=== PATIENT | female | born 1970 | race Two or more races ===

== ENCOUNTER 2025-04-10 17:42 | Emergency (ER) | payer OTHER, SELFPAY ==
[2025-04-10 17:47] VITALS: BP 118/97; PULSE 97; RESP 16; TEMP 36.6; O2SAT 96
--- OUTSIDE RECORDS SUMMARY | 2025-04-10 19:24 | XMS_ITS | Clinical Summary ---
Author Organization [facility] Address [address] [place] [address] Care Team Providers Care Associate Marketing Manager Name Role Phone Lasha Patel PA-C Primary Care Provider [phone] Source Comments [facility],non-owned Affiliates and Associated Physician Practices is amultiple site organization consisting of ambulatory clinics and hospital sitesin [place], [place], [place] and [place]. This disclosure is being madepursuant to the Care Everywhere program and may not contain all information available regarding this patient. Last updated 18.[facility] Allergies Active Allergy Reactions Criticality Noted Date Comments Penicillins Urticaria High 03/29/2020 Medications * Be aware that medications may not be up to date on this document. Alwaysverify current medications with the patient. atorvastatin (Lipitor) 10 MG tablet Take 1 (one) tablet by mouth once daily 06/25/2024 Active losartan (Cozaar) 50 MG tablet Take 1 (one) tablet by mouth once daily 03/03/2024 Active gabapentin (Neurontin) 300 MG capsule Take 1 (one) capsule by mouth as needed 08/21/2024 Active PARoxetine (Paxil) 30 MG tablet Take 0.5 (one-half) tablet by mouth once daily 08/15/2024 Active busPIRone (Buspar) 5 MG tablet Take 1 (one) tablet by mouth 2 times daily Active hydrOXYzine HCl (Atarax) 25 MG tablet Take 1 (one) tablet by mouth 4 times daily as needed for Itching Active mirtazapine (Remeron) 30 MG tablet Take 1 (one) tablet by mouth at bedtime 30 tablet 09/24/2024 Active metoprolol tartrate IR (Lopressor) 25 MG tablet Take 1 (one) tablet by mouth 2 times daily 60 tablet 01/11/2025 Active LORazepam (Ativan) 1 MG tablet Take 1 (one) tablet by mouth every 12 hours as needed for Anxiety 6 tablet 01/11/2025 Active oxymetazoline (Afrin) 0.05 % nasal spray Perry 1 (one) spray into each nostril 2 times daily Please use for not longer than a week 37 mL 01/14/2025 Active fluticasone propionate (Flonase) 50 MCG/ACT nasal spray Perry 2 (two) sprays into each nostril once daily 1 Each 01/14/2025 Active loratadine (Claritin) 10 MG tablet Take 1 (one) tablet by mouth once daily 30 tablet 01/14/2025 Active predniSONE (Deltasone) 50 MG tablet Take 1 (one) tablet by mouth once daily 5 tablet 01/14/2025 Active Active Problems Problem Noted Date Diagnosed Date Sinus tachycardia 09/23/2024 SVT (supraventricular tachycardia) 09/23/2024 Tinnitus of both ears 09/23/2024 JANELL (generalized anxiety disorder) 06/23/2024 Alcohol use disorder, mild, in early remission 1 Insomnia 06/23/2024 MDD (major depressive disorder) 06/23/2024 Mixed hyperlipidemia 06/23/2024 Smoker 06/23/2024 Cluster headaches 06/23/2024 Encounters Date Type Department Care Team Description 01/14/2025 11:34 AM CDT - 01/14/2025 3:54 PM CDT Emergency ER at [address] [address] Mario Whaley MD Pulsatile tinnitus of right ear (Primary Dx); Acute intractable headache, unspecified headache type Discharge Disposition: Correction or Supportive Care 01/14/2025 Travel 01/11/2025 11:55 AM CDT - 01/11/2025 6:45 PM CDT Emergency ER at [address] [address] Sakina Ray MD Rapid heart rate; Anxiety states Discharge Disposition: Home or Self Care 01/11/2025 Travel from Last 3 Months Immunizations Immunization Administration Dates Next Due COVID PFIZER 12+YR 30MCG/0.3mL 06/05/2024,2022 COVID PFIZER BIVALENT 12Y+ 30mcg/0.3ML Covid Pfizer primary Monoval ent 12+ yr 0.3ml 01/04/2022 Covid Pfizer primary monoval ent 12+ yr 0.3mL Purple cap 08/05/2021,11/24/2020,10/27/2020 Social History Tobacco Use Types Packs/Day Years Used Date Smoking Tobacco: Former Cigarettes Smokeless Tobacco: Never Tobacco Cessation:Counseling Given: Not Answered Comments:Smoke half pack a day Alcohol Use Standard Drinks/Week Comments Not Currently 0 (1 standard drink = 0.6 oz pur e alcohol) 56 days sober Sex and Gender Information Value Date Recorded Sex Assigned at Not on file 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 Gender Identity Not on file Sexual Orientation Not on file Last Filed Vital Signs Vital Sign Reading Time Taken Comments Blood Pressure 122/93 01/14/2025 3:30 PM CDT Pulse 63 01/14/2025 2:30 PM CDT Temperature 36.7 C (98.1 F) 01/14/2025 11:36 AM CDT Respiratory Rate 14 01/14/2025 2:30 PM CDT Oxygen Saturation 98% 01/14/2025 3:30 PM CDT Inhaled Oxygen Concentration - - Weight 93 kg (205 lb) 01/14/2025 11:36 AM CDT Height 188 cm (6' 2) 01/14/2025 11:36 AM CDT Body Mass Index 26.32 01/14/2025 11:36 AM CDT Plan of Treatment Upcoming Encounters Date Type Department Care Team (Late st Contact Info) Description 04/17/2025 11:30 AM CDT Office Visit [facility] - ENT [address] [place] [address] Pj Jeffers MD [address] [place] [address] Health Maintenance Due Date Last Done Comments COLOGUARD (AGES 45-75) - COLON CA SCREENING 1970 COLON MONITORING 1970 COLONOSCOPY - COLON CA SCREENING 1970 CT COLONOGRAPHY - COLON CA SCREENING 1970 Colorectal Cancer Screening 1970 FIT - COLON CA SCREENING 1970 FLEX SIG - COLON CA SCREENING 1970 HIV SCREENING 1985 HEPATITIS C SCREENING 11/05/1988 DTAP/TDAP/TD VACCINES (1 - Tdap) 1989 HEPATITIS B VACCINE (1 of 3 - 19+ 3-dose series) 1989 PNEUMOCOCCAL VACCINE 50+ (1 of 1 - PCV) 2020 ZOSTER VACCINE (1 of 2) 2020 DEPRESSION SCREENING 09/21/2024 INFLUENZA VACCINE (#1) 2025 SCREENING FOR DIABETES 01/15/2028 , 01/11/2025, 01/10/2025, Additional history exists COVID-19 VACCINE Completed 06/05/2024, , 08/06/2022, Additional history exists HIB VACCINE Aged Out No longer eligi ble based on patient's age to complete this topic HPV VACCINE Aged Out No longer eligi ble based on patient's age to complete this topic MENINGOCOCCAL (Group B) VACCINE SHARED DECISION-MAKING Aged Out No longer eligible based on patient's age to complete this topic MENINGOCOCCAL GROUPS A/C/Y/W VACCINE Aged Out No longer eligible based on patient's age to complete this topic Procedures Procedure Name Priority Date/Time Associated Diagnosis Comments COMPREHENSIVE METABOLIC PANEL STAT 01/14/2025 12:14 PM CDT CBC W AUTO DIFFERENTIAL STAT 01/14/2025 12:[address] HEAD WO CONTRAST STAT 01/14/2025 1 2:07 PM CDT Acute intractable headache, unspecified headache type CARDIAC EKG ORDER 01/12/2025 2:3 6 PM CDT TROPONIN-I HIGH SENSITIVE REFLEX 1HOUR Timed 01/11/2025 1:45 PM CDT TROPONIN-I HIGH SENSITIVE BASELINE + 1HR STAT 01/11/2025 12:13 PM CDT B-TYPE NATRIURETIC PEPTIDE STAT 01/11/2025 12:07 PM CDT ALCOHOL ETHYL BLOOD STAT 01/11/2025 1 2:07 PM CDT MAGNESIUM BLOOD STAT 01/11/2025 12:07 PM CDT COMPREHENSIVE METABOLIC PANEL STAT 01/11/2025 12:07 PM CDT CBC W AUTO DIFFERENTIAL STAT 01/11/2025 12:07 PM CDT EKG 12-LEAD STAT 01/11/2025 11:58 AM CDT Rapid heart beat from Last 3 Months Results * CBC W AUTO DIFFERENTIAL (01/14/2025 12:14 PM CDT) Only the most recent of2 resultswithin the time period is included. Pathologist [facility] WBC 8.4 4.0 - 10.7 x10E9/L 01/14/2025 12:21 PM CDT [facility] RBC Count 4.85 4.30 - 5.80 x10E12/L 01/14/2025 12:21 PM CDT [facility] Hemoglobin 14.9 13.3 - 17.5 g/dL 01/14/2025 12:21 PM CDT [facility] Hematocrit 43.2 38.7 - 51.1 % 01/14/2025 12:21 PM CDT [facility] MCV 89.1 80.0 - 98.0 fL 01/14/2025 12:21 PM CDT [facility] MCH 30.7 26.7 - 33.6 pg 01/14/2025 12:21 PM CDT [facility] MCHC 34.5 31.7 - 36.3 g/dL 01/14/2025 12:21 PM CDT [facility] RDW-CV 12.5 11.3 - 14.8 % 01/14/2025 12:21 PM CDT [facility] Platelet Count 217 150 - 420 x10E9/L 01/14/2025 12:21 PM CDT [facility] MPV 8.9 7.8 - 11.4 fL 01/14/2025 12:21 PM CDT [facility] Neutrophil % 58.8 41.0 - 74.0 % 01/14/2025 12:21 PM CDT [facility] Lymphocyte % 31.6 17.0 - 47.0 % 01/14/2025 12:21 PM CDT [facility] Monocyte % 6.0 3.0 - 11.0 % 01/14/2025 12:21 PM CDT [facility] Eosinophil % 1.9 0.0 - 7.0 % 01/14/2025 12:21 PM CDT [facility] Basophil % 0.9 0.0 - 1.6 % 01/14/2025 12:21 PM CDT [facility] Immature Granulocytes % 0.8 0.0 - 1.0 % 01/14/2025 12:21 PM CDT [facility] Neutrophil Absolute 4.95 1.60 - 7.50 x10E9/L 01/14/2025 12:21 PM CDT [facility] Lymphocyte Absolute 2.67 1.00 - 4.40 x10E9/L 01/14/2025 12:21 PM CDT [facility] Monocyte Absolute 0.51 0.15 - 1.00 x10E9/L 01/14/2025 12:21 PM CDT [facility] Eosinophil Absolute 0.16 0.00 - 0.60 x10E9/L 01/14/2025 12:21 PM CDT [facility] Basophil Absolute 0.08 0.00 - 0.13 x10E9/L 01/14/2025 12:21 PM CDT [facility] Blood BLOOD SPECIMEN / Unknown Venipuncture / Unknown 01/14/2025 12:14 PM CDT 01/14/2025 12:17 PM CDT Mario Whaley MD LAB - HEMATOLOGY ORDERABLES Fin al Result [facility] [address] [place] [address] * (ABNORMAL) COMPREHENSIVE METABOLIC PANEL (01/14/2025 12:14 PM CDT) Only the most recent of2 resultswithin the time period is included. [facility] Glucose 88 70 - 99 mg/dL 01/14/2025 12:34 PM CDT [facility] Sodium 141 136 - 145 mmol/L 01/14/2025 12:34 PM CDT [facility] Potassium 4.4 3.5 - 5.1 mmol/L 01/14/2025 12:34 PM CDT [facility] Chloride 109(H) 98 - 107 mmol/L 01/14/2025 12:34 PM CDT [facility] CO2 26 22 - 29 mmol/L 01/14/2025 12:34 PM CDT [facility] Calcium 10.0 8.4 - 10.4 mg/dL 01/14/2025 12:34 PM CDT [facility] Anion Gap 6 6 - 16 mmol/L 01/14/2025 12:34 PM CDT [facility] BUN 13 7 - 26 mg/dL 01/14/2025 12:34 PM CDT [facility] Creatinine 1.00 0.72 - 1.25 mg/dL 01/14/2025 12:34 PM CDT [facility] Alkaline Phosphatase 43 40 - 150 U/L 01/14/2025 12:34 PM CDT [facility] ALT 31 6 - 57 U/L 01/14/2025 12:34 PM CDT [facility] AST 19 10 - 48 U/L 01/14/2025 12:34 PM CDT [facility] Protein Total 7.2 6.4 - 8.3 gm/dL 01/14/2025 12:34 PM CDT [facility] Albumin 4.3 3.4 - 5.0 gm/dL 01/14/2025 12:34 PM CDT [facility] Bilirubin Total 0.6 0.2 - 1.2 mg/dL 01/14/2025 12:34 PM CDT [facility] eGFR by CKD-EPI 89(L) >=90 mL/min/1.7 3 m2 01/14/2025 12:34 PM CDT [facility] Blood BLOOD SPECIMEN / Unknown Venipuncture / Unknown 01/14/2025 12:14 PM CDT 01/14/2025 12:17 PM CDT Mario Whaley MD LAB - CHEMISTRY ORDERABLES Mira mcbride Result [facility] [address] [place] [address] * CT Head Wo Contrast (01/14/2025 12:07 PM CDT) Anatomical Region Laterality Modality Head Computed Tomogra phy 01/14/2025 12:1 0 PM CDT Impressions 01/14/2025 12:11 PM CDT IMPRESSION: No intracranial hemorrhage > Interpreting Provider: Ej Villanueva MD on 01/14/2025 12:11 PM Narrative 01/14/2025 12:11 PM CDT PROCEDURE: CT HEAD WO CONTRAST DATE/TIME OF EXAM: 01/14/2025 12:07 PM CLINICAL INFORMATION: None relevant/not provided if blank. Indication: R51.9: Headache, unspecified Additional History: COMPARISON: None. TECHNIQUE: Noncontrast CT brain was performed utilizing standard protocol. CT dose reduction technique was used, including Automated Exposure Control. VIZAI was utilized for intracranial hemorrhage. FINDINGS: The ventricles, gyri, and sulci are appropriate. There is no midline shift, mass, mass effect or acute intracranial hemorrhage. No definite acute cortical infarct is present. The calvarium is intact. There is ethmoid sinus thickening. Right maxillary sinus thickening is present. Procedure Note Ej Villanueva MD - 01/14/2025 PROCEDURE: CT HEAD WO CONTRAST DATE/TIME OF EXAM: 01/14/2025 12:07 PM CLINICAL INFORMATION: None relevant/not provided if blank. Indication: R51.9: Headache, unspecified Additional History: COMPARISON: None. TECHNIQUE: Noncontrast CT brain was performed utilizing standard protocol. CT dose reduction technique was used, including Automated ExposureControl. VIZAI was utilized for intracranial hemorrhage. FINDINGS: The ventricles, gyri, and sulci are appropriate. There is no midlineshift, mass, mass effect or acute intracranial hemorrhage. No definite acute cortical infarct is present. The calvarium is intact. There is ethmoid sinus thickening. Right maxillary sinus thickening is present. IMPRESSION: No intracranial hemorrhage > Interpreting Provider: Ej Villanueva MD on 01/14/2025 12:11 PM Result [facility] Mario Whaley MD CT ORDERABLES Final Result * CARDIAC EKG ORDER (01/12/2025 2:36 PM CDT) Narrative 01/12/2025 2:36 PM CDT Ordered by an unspecified provider. Scanned Document CARDIAC SERVICES ORDERABLES Fin al Result * TROPONIN-I HIGH SENSITIVE REFLEX 1HOUR (01/11/2025 1:45 PM CDT) Troponin I High Sensitive <3 <=35 ng/L 01/11/2025 2:10 PM CDT [facility] Delta Troponin I HS 01/11/2025 2:10 PM CDT [facility] Comment:Delta value intentio elzbieta not calculated. Baseline to 1 hour specimen collection interval exceeded. Blood BLOOD SPECIMEN / Unknown Venipuncture / Unknown 01/11/2025 1:45 PM CDT 01/11/2025 1:47 PM CDT Result [facility] Sakina Ray MD LAB - CHEMISTRY ORDERABLES Final Result Performing Organization Address [facility] Co de Phone Number [facility] [id number] [place] [address] * TROPONIN-I HIGH SENSITIVE BASELINE + 1HR (01/11/2025 12:13 PM CDT) Troponin I High Sensitive <3 <=35 ng/L 01/11/2025 12:44 PM CDT [facility] Blood BLOOD SPECIMEN / Unknown Venipuncture / Unknown 01/11/2025 12:13 PM CDT 01/11/2025 12:16 PM CDT Result [facility] Sakina Ray MD LAB - CHEMISTRY ORDERABLES Final Result Performing Organization Address [facility] Co de Phone Number [facility] [address] [place] [address] * B-TYPE NATRIURETIC PEPTIDE (01/11/2025 12:07 PM CDT) Pathologist [facility] BNP <10 <=100 pg/mL 01/11/2025 12:51 PM CDT [facility] Blood BLOOD SPECIMEN / Unknown Venipuncture / Unknown 01/11/2025 12:07 PM CDT 01/11/2025 12:22 PM CDT Sakina Ray MD LAB - CHEMISTRY ORDERABLES Final Result Performing Organization Address [facility] Co de Phone Number [facility] [address] [place] [address] [id number] * MAGNESIUM BLOOD (01/11/2025 12:07 PM CDT) [facility] Magnesium 2.0 1.6 - 2.6 mg/dL 01/11/2025 12:45 PM CDT [facility] Blood BLOOD SPECIMEN / Unknown Venipuncture / Unknown 01/11/2025 12:07 PM CDT 01/11/2025 12:22 PM CDT Sakina Ray MD LAB - CHEMISTRY ORDERABLES Final Result Performing Organization Address [facility] de Phone Number [facility] [address] [place] [address] * ALCOHOL ETHYL BLOOD (01/11/2025 12:07 PM CDT) [facility] Ethanol <10.0 <10 mg/dL 01/11/2025 12:45 PM CDT [facility] Ethanol Calculated <0.010 <=0.100 gm/dL 01/11/2025 12:45 PM CDT [facility] Blood BLOOD SPECIMEN / Unknown Venipuncture / Unknown 01/11/2025 12:07 PM CDT 01/11/2025 12:22 PM CDT Narrative [facility] - 01/11/2025 12:45 PM CDT Ethanol Interp <10: None Detected Depression of CSN: >100 mg/dL Potentially Critical: >250 mg/dL Potentially Fatal >400 mg/dL Ethanol in the patient's blood will contribute to the osmolar gap. Ethanol's contribution to the osmolar gap can be estimated by dividing the concentration of ethanol in mg/dL by 4.6. This test is for clinical use only and does not equal a RICCARDO for legal purposes. Sakina Ray MD LAB - CHEMISTRY ORDERABLES Final Result Performing Organization Address [facility] Co de Phone Number [facility] [address] [place] [address] * EKG 12-LEAD (01/11/2025 11:58 AM CDT) Ventricular Rate 133 BPM [facility] Atrial Rate 133 BPM [facility] P-R Interval 132 ms [facility] QRS Duration ms 82 ms [facility] Q-T Interval ms 298 ms [facility] QTC Calculation (Bezet) 443 ms [facility] Calculated P [place] 43 degrees [facility] Calculated R [place] 11 degrees [facility] Calculated T [place] 61 degrees [facility] Interpretation EKG Sinus tachycardia Otherwise normal ECG No previous ECGs available Confirmed by LENO REYES MD ([id number]) on 01/11/2025 1:39:22 PM [facility] 01/11/2025 11:5 8 AM CDT 01/11/2025 1:39 PM CDT Sakina Ray MD ECG ORDERABLES Edited Result - Final Performing Organization Address [facility] Co de Phone Number [facility] from Last 3 Months Insurance [facility] Advance Directives * Full Code (Latest Code Status on File) Date Activated Date Inactivated Comments 09/23/2024 6:37 PM 09/24/2024 7:13 PM Care Teams Associate Marketing Manager Relationship Specialty Start Date End Date Lasha Patel PA-C [address] [id number] PCP - General Physician Shopping Inspector Medical 08/22/24
--- OUTSIDE RECORDS SUMMARY | 2025-04-10 19:24 | XMS_ITS | Referral Summary ---
Author Organization [facility] Address [facility] [place] [address] Care Team Providers Care Clay Puddler Name Role Phone Ignacio Feldman MD Primary Care Provider + Encounters Date Type Department Care Team Description 04/10/2025 4:57 PM CDT - 04/10/2025 6:54 PM CDT Emergency [facility] Emergency Department [address] [place] [id number] Discharge Disposition: Left without being seen 04/08/2025 1:41 PM CDT - 04/08/2025 5:20 PM CDT Emergency [facility] Emergency Department [address] [place] [address] Saba Tapia MD Acute intractable headache, unspecified headache type (Primary Dx) Discharge Disposition: Discharge to home or self care 04/06/2025 5:35 AM CDT - 04/06/2025 7:56 AM CDT Emergency [facility] Emergency Department [address] [place] [address] Franklyn Mclain MD Thomas, Jenna Marie, MD Tinnitus of both ears (Primary Dx); Other migraine with status migrainosus, not intractable Discharge Disposition: Discharge to home or self care 04/03/2025 Telephone [facility] Otolaryngology [address] [place] [id number] Elle Meehan MS 03/23/2025 11:55 PM CDT - 03/24/2025 3:08 AM CDT Emergency [facility] Emergency Department [address] [place] [address] Nina Bejarano MD Anxiety (Primary Dx); Tinnitus of both ears Discharge Disposition: Discharge to home or self care 03/22/2025 Orders Only [facility] [address] [facility] [address] [place] [id number] Lasha Patel PA Primary osteoarthritis involving multiple joints (Primary Dx); Chronic pain syndrome 03/15/2025 9:13 AM CDT - 03/15/2025 10:56 AM CDT Emergency [facility] Emergency Department [address] [place] [address] Bj Leger DO Tinnitus, unspecified laterality (Primary Dx); Anxiety Discharge Disposition: Discharge to home or self care 03/12/2025 3:40 PM CDT - 03/12/2025 7:29 PM CDT Emergency [facility] Emergency Department [address] [place] [address] Anxiety (Primary Dx) Discharge Disposition: Discharge to home or self care 03/12/2025 9:30 AM CDT - 03/12/2025 12:34 PM CDT Emergency [facility] Emergency Department [address] [place] [address] Ken Monreal MD Tinnitus of both ears (Primary Dx) Discharge Disposition: Discharge to home or self care 03/06/2025 12:00 PM CDT - 03/06/2025 1:05 PM CDT Surgery [facility] Operating Room [address] [place] [address] Santos Hart MD SEPTOPLASTY AND BILATERAL INFERIOR TURBINATE REDUCTION [[id number] (CPT )] 03/06/2025 11:52 AM CDT Anesthesia Event [facility] Operating Room [address] [place] [address] Ivelisse Benton DO Riordan, Isabella Rossi, MD 03/06/2025 9:56 AM CDT - 03/06/2025 2:50 PM CDT Hospital Encounter [facility] Operating Room [address] [place] [address] Santos Hart MD Discharge Disposition: Discharge to home or self care from Last 3 Months Allergies Active Allergy Reactions Criticality Noted Date Comments Penicillins Angioedema High 11/12/2024 Medications atorvastatin (LIPITOR) 10 mg tablet Take 1 tablet (10 mg total) by mouth daily 4 Active gabapentin (NEURONTIN) 300 mg capsule Take 1 capsule (300 mg total) by mouth as needed 4 Active losartan (COZAAR) 50 mg tablet Take 1 tablet (50 mg total) by mouth daily 4 Active metoprolol tartrate (LOPRESSOR) 25 mg immediate release tablet Take 1 tablet (25 mg total) by mouth 2 (two) times a day 5 Active mirtazapine (REMERON) 30 mg tablet Take 1.5 tablets (45 mg total) by mouth nightly 5 Active PARoxetine (PAXIL) 30 mg tablet Take 0.5 tablets (15 mg total) by mouth daily 4 Active hydrOXYzine (ATARAX) 25 mg tablet Take 1 tablet (25 mg total) by mouth every 6 (six) hours 12 tablet 5 Active butalbital-acet aminophen-caffe ine (ESGIC) 50-325-40 mg per tablet Take 1 tablet by mouth every 4 (four) hours as needed for headaches 15 tablet 5 Active hydrOXYzine (ATARAX) 25 mg tablet Take 1 tablet (25 mg total) by mouth 4 (four) times a day as needed 03/24/20 25 Discontinu ed(Therapy completed) Social History Tobacco Use Types Packs/Day Years Used Date Smoking Tobacco: Former Smokeless Tobacco: Never Tobacco Cessation:Counseling Given: Not Answered AUDIT-C Answer Date Recorded Q1: How often do you have a drink containing alcohol? Never 03/06/2025 Q2: How many drinks containi ng alcohol do you have on a typical day when you are drinking? Patient does not drink 5 Q3: How often do you have si x or more drinks on one occasion? Never 03/06/2025 Personal Safety Answer Date Recorded Have you ever been in or are you currently in a harmful physical or emotional relationship or is someone making you feel afraid or unsafe? 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 Gender Identity Not on file Sexual Orientation Not on file Last Filed Vital Signs Vital Sign Reading Time Taken Comments Blood Pressure 137/94 04/08/2025 5:00 PM CDT Pulse 85 04/08/2025 5:00 PM CDT Temperature 36.1 C (96.9 F) 04/08/2025 1:47 PM CDT Respiratory Rate 20 04/08/2025 5:00 PM CDT Oxygen Saturation 93% 04/08/2025 5:00 PM CDT Inhaled Oxygen Concentration - - Weight 104.3 kg (230 lb) 04/08/2025 1:47 PM CDT Height 188 cm (6' 2) 03/23/2025 11:32 PM CDT Body Mass Index 29.53 03/23/2025 11:32 PM CDT Plan of Treatment Not on file Procedures Procedure Name Priority Date/Time Associated Diagnosis Comments EGFR STAT 04/08/2025 3:16 PM CDT DIFFERENTIAL AUTO STAT 04/08/2025 3:1 6 PM CDT COMPREHENSIVE METABOLIC PANEL STAT 04/08/2025 3:16 PM CDT CBC WITH AUTO DIFFERENTIAL STAT 04/08/2025 3:16 PM CDT TROPONIN T HIGH-SENSITIVITY 2-HOUR Timed 03/12/2025 6:32 PM CDT EGFR STAT 03/12/2025 4:30 PM CDT DIFFERENTIAL AUTO STAT 03/12/2025 4:3 0 PM CDT TROPONIN T HIGH-SENSITIVITY SERIES (BASELINE, 2HR, 4HR, 6HR) STAT 03/12/2025 4:30 PM CDT COMPREHENSIVE METABOLIC PANEL STAT 03/12/2025 4:30 PM CDT CBC WITH AUTO DIFFERENTIAL STAT 03/12/2025 4:30 PM CDT XR CHEST PA LATERAL 2 VIEWS ED 03/12/2025 4:11 PM CDT ECG 12-LEAD STAT 03/12/2025 3:41 PM CDT OH AN PROCEDURE PLACEHOLDER Routine 03/06/2025 12:16 PM CDT OH AN ELECTIVE ENDOTRACHEAL AIRWAY Routine 03/06/2025 12:16 PM CDT OH SEPTOPLASTY/SUBMUCOU S RESECJ W/WO CARTILAGE GRF 03/06/2025 11:59 AM CDT Deviated nasal septum Other specified disorders of nose and nasal sinuses Nasal congestion Hypertrophy of nasal turbinates Case Notes NO SPECIAL NEEDS / NO REP NEEDED FOR THIS CASE from Last 3 Months Results * eGFR (04/08/2025 3:16 PM CDT) eGFR >90 >=60 mL/min/1. 73 m2 Comment: Interpretive Data Reference Interval Normal >/= 90 mL/min/1.73m2 Mildly decreased* 60 - 89 mL/min/1.73m2 Mildly to moderately decreased 45 - 59 mL/min/1.73m2 Moderately to severely decreased 30 - 44 mL/min/1.73m2 Severely decreased 15 - 29 mL/min/1.73m2 Kidney Failure < 15 mL/min/1.73m2 *Relative to young adult level Estimated glomerular filtration rate is determined by the 2020 CKD-EPI equation recommended by the National Kidney Foundation (A Unifying Approach to GFR Estimation: Recommendations of the NKF-ASK Task Force on Reassessing the Inclusion of Race in Diagnosing Kidney Disease, JASN 2020). The CKD-EPI equation should not be used for patients with unstable renal function and has not been validated in children and those over 70. Current interpretive data was last reviewed 2021. Blood 04/08/2025 3:16 PM CDT 04/08/2025 3:22 PM CDT us Saba Tapia MD LAB BLOOD ORDERABLES Fin al Result [facility] [address] [facility] Department [place] [address] * Differential, auto (04/08/2025 3:16 PM CDT) Neutrophil abs 5.06 1.50 - 6.50 K/cumm Imm gran abs 0.08 0.00 - 0.10 K/cumm [facility] Lymphocyte abs 2.68 0.80 - 3.30 K/cumm [facility] Monocyte abs 0.61 0.20 - 0.80 K/cumm [facility] Eosinophil abs 0.14 0.00 - 0.50 K/cumm [facility] Basophil abs 0.07 0.00 - 0.10 K/cumm [facility] Neutrophil pct 58.6 % [facility] Comment: Interpretive Data Percent cell count reference ranges are not reported, since discordance with absolute values may lead to misinterpretation of CBC data. Current Interpretive Data was last revised on 2017. Imm gran pct 0.9 % [facility] Comment: Interpretive Data Percent cell count reference ranges are not reported, since discordance with absolute values may lead to misinterpretation of CBC data. Current Interpretive Data was last revised on 2017. Lymphocyte pct 31.0 % [facility] Comment: Interpretive Data Percent cell count reference ranges are not reported, since discordance with absolute values may lead to misinterpretation of CBC data. Current Interpretive Data was last revised on 2017. Monocyte pct 7.1 % [facility] Comment: Interpretive Data Percent cell count reference ranges are not reported, since discordance with absolute values may lead to misinterpretation of CBC data. Current Interpretive Data was last revised on 2017. Eosinophil pct 1.6 % [facility] Comment: Interpretive Data Percent cell count reference ranges are not reported, since discordance with absolute values may lead to misinterpretation of CBC data. Current Interpretive Data was last revised on 2017. Basophil pct 0.8 % [facility] Comment: Interpretive Data Percent cell count reference ranges are not reported, since discordance with absolute values may lead to misinterpretation of CBC data. Current Interpretive Data was last revised on 2017. Blood 04/08/2025 3:16 PM CDT 04/08/2025 3:22 PM CDT Saba Tapia MD LAB BLOOD ORDERABLES Fin al Result Performing Organization Address City/[facility]/ZIP Co de Phone Number [facility] [address] [facility] [place] [address] * (ABNORMAL) CBC with auto differential (04/08/2025 3:16 PM CDT) Pathologist [facility] WBC 8.64 3.80 - 9.90 K/cumm Hgb 15.6 13.0 - 17.5 g/dL [facility] Hct 44.3 38.9 - 50.3 % [facility] Plt 221 150 - 400 K/cumm [facility] MPV 9.0(L) 9.1 - 12.3 fL [facility] RBC 4.89 4.30 - 5.80 M/cumm [facility] MCV 90.6 81.3 - 96.4 fL [facility] MCH 31.9 27.1 - 33.3 pg [facility] MCHC 35.2 32.3 - 35.7 g/dL [facility] RDW CV 13.2 11.1 - 14.9 % [facility] RDW SD 42.9 35.7 - 48.1 fL [facility] Blood 04/08/2025 3:16 PM CDT 04/08/2025 3:22 PM CDT Saba Tapia MD LAB BLOOD ORDERABLES Fin al Result Performing Organization Address City/[facility] Co de Phone Number [facility] [address] [facility] [place] [employer] [address] * Comprehensive metabolic panel (04/08/2025 3:16 PM CDT) [facility] Sodium 137 135 - 145 mmol/L Potassium, pl 4.1 3.3 - 4.9 mmol/L [facility] Chloride 101 97 - 110 mmol/L [facility] CO2 23 22 - 32 mmol/L [facility] Anion gap 13 2 - 15 mmol/L [facility] BUN 12 6 - 25 mg/dL [facility] Creatinine 0.90 0.80 - 1.30 mg/dL [facility] Glucose 88 70 - 199 mg/dL [facility] Comment: Interpretive Data Fasting glucose >/= 126 mg/dl is diagnostic for diabetes. Fasting is defined as no caloric intake for at least 8 hours. Fasting glucose between 100 mg/dl to 125 mg/dl is diagnostic of prediabetes. In a patient with classic symptoms of hyperglycemia or hyperglycemic crisis, a random glucose >/= 200 mg/dl is diagnostic for diabetes. In the absence of unequivocal hyperglycemia, results should be confirmed by repeat testing. The classification and Diagnosis of Diabetes Diabetes Care 2021; 46: S19-S40. Current interpretive data was last revised 2022. Calcium 10.1 8.5 - 10.3 mg/dL [facility] Bilirubin, total 0.3 0.1 - 1.2 mg/dL [facility] Protein, pl 7.1 6.5 - 8.5 g/dL [facility] Albumin 4.3 3.5 - 5.0 g/dL [facility] PW Alk phos 52 40 - 130 Units/L [facility] PW ALT 28 7 - 55 Units/L [facility] PW AST 20 10 - 50 Units/L [facility] Comment:Hemolyzed result may be falsely elevated. Blood 04/08/2025 3:16 PM CDT 04/08/2025 3:22 PM CDT us Saba Tapia MD LAB BLOOD ORDERABLES Fin al Result [facility] [address] Department [place] [address] * Troponin T high-sensitivity 2-hour (03/12/2025 6:32 PM CDT) [facility] Trop T hs <6 <=22 ng/L Comment: Interpretive Data For further hscTnT resources including the diagnostic algorithm and an aid in interpretation, copy and paste this link: [email or web address].[email or web address]/show/hsTrop Current Interpretive Data last revised 2020. Trop T hs delta 0 ng/L [facility] Trop T hs interp Insignificant [facility] H Blood 03/12/2025 6:32 PM CDT 03/12/2025 6:34 PM CDT Son Rondon [employer]ING [employer]MER MACHINE LAB BLOOD ORDERABLES Fin al Result Performing Organization Address [facility] de Phone Number [address] [place] [address] * Troponin T high-sensitivity series (baseline, 2hr, 4hr, 6hr) (03/12/2025 4:30 PM CDT) [facility] Trop T hs <6 <=22 ng/L Comment: Interpretive Data For further hscTnT resources including the diagnostic algorithm and an aid in interpretation, copy and paste this link: https://nrl.[email or web address]/show/hsTrop Current Interpretive Data last revised 2020. Blood 03/12/2025 4:30 PM CDT 03/12/2025 4:33 PM CDT Son Rondon [employer]MER [employer]ACHINE LAB BLOOD ORDERABLES Fin al Result Performing Organization Address [facility] Co de Phone Number [address] Department of [employer] [place], [place] [id number] * eGFR (03/12/2025 4:30 PM CDT) [facility] eGFR >90 >=60 mL/min/1. 73 m2 Comment: Interpretive Data Reference Interval Normal >/= 90 mL/min/1.73m2 Mildly decreased* 60 - 89 mL/min/1.73m2 Mildly to moderately decreased 45 - 59 mL/min/1.73m2 Moderately to severely decreased 30 - 44 mL/min/1.73m2 Severely decreased 15 - 29 mL/min/1.73m2 Kidney Failure < 15 mL/min/1.73m2 *Relative to young adult level Estimated glomerular filtration rate is determined by the 2020 CKD-EPI equation recommended by the National Kidney Foundation (A Unifying Approach to GFR Estimation: Recommendations of the NKF-ASK Task Force on Reassessing the Inclusion of Race in Diagnosing Kidney Disease, JASN 2020). The CKD-EPI equation should not be used for patients with unstable renal function and has not been validated in children and those over 70. Current interpretive data was last reviewed 2021. Blood 03/12/2025 4:30 PM CDT 03/12/2025 4:33 PM CDT us Son Rondon [employer]MER MACHINE LAB BLOOD ORDERABLES Fin al Result [facility] [address] [facility] Department [place] [address] * (ABNORMAL) Differential, auto (03/12/2025 4:30 PM CDT) Neutrophil abs 5.87 1.50 - 6.50 K/cumm Imm gran abs 0.06 0.00 - 0.10 K/cumm [facility] Lymphocyte abs 0.97 0.80 - 3.30 K/cumm [facility] Monocyte abs 0.08(L) 0.20 - 0.80 K/cumm [facility] Eosinophil abs 0.01 0.00 - 0.50 K/cumm [facility] Basophil abs 0.03 0.00 - 0.10 K/cumm [facility] Neutrophil pct 83.7 % [facility] Comment: Interpretive Data Percent cell count reference ranges are not reported, since discordance with absolute values may lead to misinterpretation of CBC data. Current Interpretive Data was last revised on 2017. Imm gran pct 0.9 % [facility] Comment: Interpretive Data Percent cell count reference ranges are not reported, since discordance with absolute values may lead to misinterpretation of CBC data. Current Interpretive Data was last revised on 2017. Lymphocyte pct 13.8 % [facility] Comment: Interpretive Data Percent cell count reference ranges are not reported, since discordance with absolute values may lead to misinterpretation of CBC data. Current Interpretive Data was last revised on 2017. Monocyte pct 1.1 % [facility] Comment: Interpretive Data Percent cell count reference ranges are not reported, since discordance with absolute values may lead to misinterpretation of CBC data. Current Interpretive Data was last revised on 2017. Eosinophil pct 0.1 % [facility] Comment: Interpretive Data Percent cell count reference ranges are not reported, since discordance with absolute values may lead to misinterpretation of CBC data. Current Interpretive Data was last revised on 2017. Basophil pct 0.4 % [facility] Comment: Interpretive Data Percent cell count reference ranges are not reported, since discordance with absolute values may lead to misinterpretation of CBC data. Current Interpretive Data was last revised on 2017. Blood 03/12/2025 4:30 PM CDT 03/12/2025 4:33 PM CDT us Son Rondon [employer]MER MACHINE LAB BLOOD ORDERABLES Fin al Result [facility] [address] [facility] Department [place] [address] * (ABNORMAL) CBC with auto differential (03/12/2025 4:30 PM CDT) WBC 7.02 3.80 - 9.90 K/cumm Hgb 15.2 13.0 - 17.5 g/dL [facility] Hct 42.9 38.9 - 50.3 % [facility] Plt 225 150 - 400 K/cumm [facility] MPV 8.8(L) 9.1 - 12.3 fL [facility] RBC 4.81 4.30 - 5.80 M/cumm [facility] MCV 89.2 81.3 - 96.4 fL [facility] MCH 31.6 27.1 - 33.3 pg [facility] MCHC 35.4 32.3 - 35.7 g/dL [facility] RDW CV 13.1 11.1 - 14.9 % [facility] PW RDW SD 42.8 35.7 - 48.1 fL [facility] Blood 03/12/2025 4:30 PM CDT 03/12/2025 4:33 PM CDT Son Rondon NP LAB BLOOD ORDERABLES Fin al Result [facility] [address] Department [place] [address] * Comprehensive metabolic panel (03/12/2025 4:30 PM CDT) Sodium 138 135 - 145 mmol/L Potassium, pl 4.4 3.3 - 4.9 mmol/L [facility] Chloride 103 97 - 110 mmol/L [facility] CO2 22 22 - 32 mmol/L [facility] Anion gap 13 2 - 15 mmol/L [facility] BUN 13 6 - 25 mg/dL [facility] Creatinine 0.90 0.80 - 1.30 mg/dL [facility] Glucose 143 70 - 199 mg/dL [facility] Comment: Interpretive Data Fasting glucose >/= 126 mg/dl is diagnostic for diabetes. Fasting is defined as no caloric intake for at least 8 hours. Fasting glucose between 100 mg/dl to 125 mg/dl is diagnostic of prediabetes. In a patient with classic symptoms of hyperglycemia or hyperglycemic crisis, a random glucose >/= 200 mg/dl is diagnostic for diabetes. In the absence of unequivocal hyperglycemia, results should be confirmed by repeat testing. The classification and Diagnosis of Diabetes Diabetes Care 2021; 46: S19-S40. Current interpretive data was last revised 2022. Calcium 10.2 8.5 - 10.3 mg/dL [facility] Bilirubin, total 0.5 0.1 - 1.2 mg/dL [facility] Protein, pl 7.2 6.5 - 8.5 g/dL [facility] Albumin 4.5 3.5 - 5.0 g/dL [facility] Alk phos 43 40 - 130 Units/L [facility] ALT 27 7 - 55 Units/L [facility] AST 17 10 - 50 Units/L [facility] Blood 03/12/2025 4:30 PM CDT 03/12/2025 4:33 PM CDT Son Rondon NP LAB BLOOD ORDERABLES Fin al Result [facility] [address] Department [place] [address] * XR Chest PA Lateral 2 Views (03/12/2025 4:11 PM CDT) Anatomical Region Laterality Modality Body, Chest N/A Computed Radiogr aphy 03/12/2025 7:41 PM CDT Narrative 03/12/2025 7:41 PM CDT I do not have a prior study available for comparison. There is no focal pneumonic consolidation pneumothorax or pleural effusion. Electronically signed by: Esteban Flores M.D., MPH Procedure Note Esteban Flores MD - 03/12/2025 I do not have a prior study available for comparison. There is no focal pneumonic consolidation pneumothorax or pleural effusion. Electronically signed by: Esteban Flores M.D., MPH us Son Rondon [employer]ACHINE IMG XR PROCEDURES Final Result * ECG 12 lead (03/12/2025 3:41 PM CDT) 03/12/2025 3:41 PM CDT Narrative [facility] - 03/12/2025 4:23 PM CDT Vent Rate: 121 bpm RR Interval: 492 msec [place] Interval: 124 msec QRS Duration: 90 msec QT Interval: 302 msec QTC Interval: 374 msec P-R-T [place]: 45 - 16 - 56 degrees IMPRESSION: SINUS TACHYCARDIA ABNORMAL RHYTHM ECG Electronically Signed By: Tapan Verduzco DO, FACC us Bj Leger DO ECG ORDERABLES Final Re sult [facility] * OH AN ELECTIVE ENDOTRACHEAL AIRWAY, OH AN PROCEDURE PLACEHOLDER (03/06/2025 12:16 PM CDT) Narrative David Marcos CRNA - 03/06/2025 12:16 PM CDT David Marcos CRNA 03/06/2025 12:16 PM Airway Patient location: OR Urgency: elective Date/time: 03/06/2025 12:16 PM Indications for airway management: anesthesia Difficult airway: no Staff: Supervising provider: Ivelisse Benton DO Placed by: Other staff: David Marcos CRNA Emergent airway documentation: Risks and benefits discussed: yes Consent obtained: yes Consent given by: patient Airway prep: Preoxygenated: yes Patient position: sniffing Mask difficulty assessment: 1 - vent by mask Spontaneous ventilation during airway: absent Sedation level during airway: GA Final airway details: Final airway type: endotracheal airway Tube type: ETT ETT size: 7.5 mm Cuffed: yes Technique used for successful ETT placement: video laryngoscopy Devices/Methods used in placement: stylet Insertion site: oral Blade type: Justin Video blade type: Moore Blade size: 4 Cormack-Lehane (video): grade I - full view of glottis Cuff volume: 8 mL Cuff inflated with: air ETT to lips: 24 cm Placement verified by: auscultation and CO2 detection Airway secured with: silk tape Number of attempts: 1 us David Marcos CRNA ANESTHESIA ORDERABLE S Final Result from Last 3 Months Insurance [facility] CHO[facility] PLUS [facility] CHO[facility] PLUS Care Teams Clay Puddler Relationship Specialty Start Date End Date Ignacio Feldman MD [id number] [address] PCP - General Internal Medicine 03/31/25
--- OUTSIDE RECORDS SUMMARY | 2025-04-10 19:24 | XMS_ITS | Clinical Summary ---
Author Organization [facility] Address [facility] [place] [address] Care Team Providers Care Gold Prospector Name Role Phone Ignacio Feldman MD Primary Care Provider + Allergies Active Allergy Reactions Criticality Noted Date [...] as needed 03/24/20 25 Discontinu ed(Therapy completed) Encounters Date Type Department Care Team Description 04/10/2025 4:57 PM CDT - 04/10/2025 6:54 PM CDT Emergency [facility] Emergency Department 1 [place] [address] Discharge Disposition: Left without being seen 04/08/2025 1:41 PM CDT - 04/08/2025 5:20 PM CDT Emergency [facility] Emergency Department 2 [place] [phone] Saba Tapia MD Acute intractable headache, unspecified headache type (Primary Dx) Discharge Disposition: Discharge to home or self care 04/06/2025 5:35 AM CDT - 04/06/2025 7:56 AM CDT Emergency [facility] Emergency Department [address] [place] [phone] Franklyn Mclain MD Thomas, Jenna Marie, MD Tinnitus of both ears (Primary Dx); Other migraine with status migrainosus, not intractable Discharge Disposition: Discharge to home or self care 04/03/2025 Telephone [facility] Otolaryngology [address] [place] [address] Elle Meehan, 03/23/2025 11:55 PM CDT - 03/24/2025 3:08 AM CDT Emergency [facility] Emergency Department 2 [place] [phone] Nina Bejarano MD Anxiety (Primary Dx); Tinnitus of both ears Discharge Disposition: Discharge to home or self care 03/22/2025 Orders Only [facility] [address] [place] [address] Advanced Medicine [address] [address] Lasha Patel PA Primary osteoarthritis involving multiple joints (Primary Dx); Chronic pain syndrome 03/15/2025 9:13 AM CDT - 03/15/2025 10:56 AM CDT Emergency [facility] Emergency Department 2 [place] [address] Bj Leger DO Tinnitus, unspecified laterality (Primary Dx); Anxiety Discharge Disposition: Discharge to home or self care 03/12/2025 3:40 PM CDT - 03/12/2025 7:29 PM CDT Emergency [facility] Emergency Department 2 [place] [address] Anxiety (Primary Dx) Discharge Disposition: Discharge to home or self care 03/12/2025 9:30 AM CDT - 03/12/2025 12:34 PM CDT Emergency [facility] Emergency Department 2 [place] [address] Ken Monreal MD Tinnitus of both ears (Primary Dx) Discharge Disposition: Discharge to home or self care 03/06/2025 12:00 PM CDT - 03/06/2025 1:05 PM CDT Surgery [facility] Operating Room 2 [place] [address] Santos Hart MD SEPTOPLASTY AND BILATERAL INFERIOR TURBINATE REDUCTION [18904 (CPT )] 03/06/2025 11:52 AM CDT Anesthesia Event [facility] Operating Room 2 [place] [address] Ivelisse Benton DO Riordan, Micaela Johnson MD 03/06/2025 9:56 AM CDT - 03/06/2025 2:50 PM CDT Hospital Encounter [facility] Operating Room 2 [place] [address] Santos Hart MD Discharge Disposition: Discharge to home or self care from Last 3 Months Surgical History Surgery Date Site/Laterality Comments NASAL SEPTUM SURGERY 03/06/2025 Face/Bilateral Procedure: SEPTOPLASTY AND BILATERAL INFERIOR TURBINATE REDUCTION; Surgeon: Santos Hart MD; Location: [facility] OPERATING ROOM; Service: Otolaryngology; Laterality: Bilateral; Medical History Medical History Date Comments Hypertension High cholesterol Tinnitus severe Arthritis Anxiety Social History Tobacco Use Types Packs/Day Years Used Date Smoking Tobacco: Former Smokeless Tobacco: Never Tobacco Cessation:Counseling Given: Not Answered AUDIT-C Answer Date Recorded Q1: How often do you have a drink containing alcohol? Never 03/06/2025 Q2: How many drinks containi ng alcohol do you have on a typical day when you are drinking? 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 Gender Identity Not on file Sexual Orientation Not on file Obstetrics History Last Filed Vital Signs Vital Sign Reading [...] 03/23/2025 11:32 PM CDT Plan of Treatment Health Maintenance Due Date Last Done Comments Colon Cancer Screening-Colonoscopy 1970 Depression Screening 1970 Hepatitis C Screening 1970 Prostate Cancer Screening-PSA 1970 DTaP/Tdap/Td Vaccine (1 - Tdap) 1981 Hepatitis B Screening 1988 Regular Well Visit/Exam 18-64 1988 Zoster Vaccine (1 of 2) 2020 Influenza Vaccine (#1) 2025 Covid-19 Vaccine Completed 06/05/2024, , 08/06/2022, Additional history exists Pneumococcal vaccine <65 Aged Out No longer eligible based on [...] ECG 12-LEAD STAT 03/12/2025 3:41 PM CDT TN AN PROCEDURE PLACEHOLDER Routine 03/06/2025 12:16 PM CDT TN AN ELECTIVE ENDOTRACHEAL AIRWAY Routine 03/06/2025 12:16 PM CDT TN SEPTOPLASTY/SUBMUCOU S RESECJ W/WO CARTILAGE GRF 03/06/2025 [...] of Race in Diagnosing Kidney Disease, JASN 202). The CKD-EPI equation should not be used for patients with unstable renal function and has not been validated in children and those over 70. Current interpretive data was last reviewed 2021. Blood 04/08/2025 3:16 PM CDT 04/08/2025 3:22 PM CDT us Saba Tapia MD LAB BLOOD ORDERABLES Fin al Result [facility] [address] [facility] Department [place] [address] * Differential, auto (04/08/2025 3:16 PM CDT) Neutrophil abs 5.06 1.50 - 6.50 K/cumm Imm gran abs 0.08 0.00 - 0.10 K/cumm [facility] Lymphocyte abs 2.68 0.80 - 3.30 K/cumm [facility] Monocyte abs 0.61 0.20 - 0.80 K/cumm [facility] Eosinophil abs 0.14 0.00 - 0.50 K/cumm [facility] Basophil abs 0.07 0.00 - 0.10 K/cumm [facility] Neutrophil pct 58.6 % [facility] Comment: Interpretive Data Percent cell count reference ranges are not reported, since discordance with absolute values may lead to misinterpretation of CBC data. Current Interpretive Data was last revised on 2017. Imm gran pct 0.9 % [facility] Comment: Interpretive Data Percent cell count reference ranges are not reported, since discordance with absolute values may lead to misinterpretation of CBC data. Current Interpretive Data was last revised on 2017. Lymphocyte pct 31.0 % [facility] Comment: Interpretive Data Percent cell count reference ranges are not reported, since discordance with absolute values may lead to misinterpretation of CBC data. Current Interpretive Data was last revised on 2017. Monocyte pct 7.1 % [facility] Comment: Interpretive Data Percent cell count [...] revised on 2017. Basophil pct 0.8 % [facility] Comment: Interpretive Data Percent cell count reference ranges are not reported, since discordance with absolute values may lead to misinterpretation of CBC data. Current Interpretive Data was last revised on 2017. Blood 04/08/2025 3:16 PM CDT 04/08/2025 3:22 PM CDT us Saba Tapia MD LAB BLOOD ORDERABLES Fin al Result [facility] [address] [facility] Department of Laboratories [place], [place] [id number] * (ABNORMAL) CBC with auto differential (04/08/2025 3:16 PM CDT) WBC 8.64 3.80 - 9.90 K/cumm Hgb 15.6 13.0 - 17.5 g/dL [facility] Hct 44.3 38.9 - 50.3 % [facility] Plt 221 150 - 400 K/cumm [facility] MPV 9.0(L) 9.1 - 12.3 fL [facility] RBC 4.89 4.30 - 5.80 M/cumm [facility] MCV 90.6 81.3 - 96.4 fL [facility] MCH 31.9 27.1 - 33.3 pg [facility] MCHC 35.2 32.3 - 35.7 g/dL [facility] RDW CV 13.2 11.1 - 14.9 % [facility] RDW SD 42.9 35.7 - 48.1 fL [facility] Blood 04/08/2025 3:16 PM CDT 04/08/2025 3:22 PM CDT us Saba Tapia MD LAB BLOOD ORDERABLES Fin al Result [facility] [address] Department [place] [address] * Comprehensive metabolic panel (04/08/2025 3:16 PM CDT) Sodium 137 135 - 145 mmol/L Potassium, pl 4.1 3.3 - 4.9 mmol/L [facility] Chloride 101 97 - 110 mmol/L [facility] CO2 23 22 - 32 mmol/L [facility] Anion gap 13 2 - 15 mmol/L [facility] BUN 12 6 - 25 mg/dL [facility] Creatinine 0.90 0.80 - 1.30 mg/dL [facility] Glucose 88 70 - 199 mg/dL [facility] Comment: Interpretive Data Fasting glucose >/= 126 [...] classification and Diagnosis of Diabetes Diabetes Care 202; 46: S19-S40. Current interpretive data was last revised 2022. Calcium 10.1 8.5 - 10.3 mg/dL [facility] Bilirubin, total 0.3 0.1 - 1.2 mg/dL [facility] Protein, pl 7.1 6.5 - 8.5 g/dL [facility] Albumin 4.3 3.5 - 5.0 g/dL [facility] Alk phos 52 40 - 130 Units/L [facility] PW ALT 28 7 - 55 Units/L [facility] PW AST 20 10 - 50 Units/L [facility] Comment:Hemolyzed result may be falsely elevated. Blood 04/08/2025 3:16 PM CDT 04/08/2025 3:22 PM CDT Saba Tapia MD LAB BLOOD ORDERABLES Fin al Result Performing Organization Address City/[facility] Co de Phone Number [facility] [address] [facility] [place] [address] * Troponin T high-sensitivity 2-hour (03/12/2025 6:32 PM CDT) Trop T hs <6 <=22 ng/L Comment: Interpretive Data For further hscTnT resources including the diagnostic algorithm and an aid in interpretation, copy and paste this link: https://nrl.testcatalog.org/show/hsTrop Current Interpretive Data last revised 2020. Trop T hs delta 0 ng/L [facility] Trop T hs interp Insignificant [facility] Blood 03/12/2025 6:32 PM CDT 03/12/2025 6:34 PM CDT Son Rondon NP LAB BLOOD ORDERABLES Fin al Result [facility] [address] [facility] [place] [address] * Troponin T high-sensitivity series (baseline, 2hr, 4hr, 6hr) (03/12/2025 4:30 PM CDT) Trop T hs <6 <=22 ng/L Comment: Interpretive Data For further hscTnT resources including the diagnostic algorithm and an aid in interpretation, copy and paste this link: https://nrl.testcatalog.org/show/hsTrop Current Interpretive Data last revised 2020. Blood 03/12/2025 4:30 PM CDT 03/12/2025 4:33 PM CDT Sonkris Rondon SMOKING PIPE MOUNTER LAB BLOOD ORDERABLES Fin al Result Performing Organization Address [facility] Co de Phone Number STEPHAN [address] [place] [address] * eGFR (03/12/2025 4:30 PM CDT) eGFR >90 >=60 mL/min/1. 73 [...] of Race in Diagnosing Kidney Disease, JASN 202). The CKD-EPI equation should not be used for patients with unstable renal function and has not been validated in children and those over 70. Current interpretive data was last reviewed 2021. Blood 03/12/2025 4:30 PM CDT 03/12/2025 4:33 PM CDT Son Rondon NP LAB BLOOD ORDERABLES Fin al Result Performing Organization Address [facility] Co de Phone Number STEPHAN [facility] 2 [facility] [place] [address] * (ABNORMAL) Differential, auto (03/12/2025 4:30 PM CDT) Neutrophil abs 5.87 1.50 - 6.50 K/cumm Imm gran abs 0.06 0.00 - 0.10 K/cumm [facility] Lymphocyte abs 0.97 0.80 - 3.30 K/cumm [facility] Monocyte abs 0.08(L) 0.20 - 0.80 K/cumm [facility] Eosinophil abs 0.01 0.00 - 0.50 K/cumm [facility] Basophil abs 0.03 0.00 - 0.10 K/cumm [facility] Neutrophil pct 83.7 % [facility] Comment: Interpretive Data Percent [...] revised on 2017. Lymphocyte pct 13.8 % [facility] Comment: Interpretive Data Percent cell count reference ranges are not reported, since discordance with absolute values may lead to misinterpretation of CBC data. Current Interpretive Data was last revised on 2017. Monocyte pct 1.1 % [facility] Comment: Interpretive Data Percent [...] NP LAB BLOOD ORDERABLES Fin al Result [facility] [address] [facility] [place] [address] * (ABNORMAL) CBC with auto differential (03/12/2025 4:30 PM CDT) WBC 7.02 3.80 - 9.90 K/cumm Hgb 15.2 13.0 - 17.5 g/dL [facility] Hct 42.9 38.9 - 50.3 % [facility] Plt 225 150 - 400 K/cumm [facility] MPV 8.8(L) 9.1 - 12.3 fL [facility] RBC 4.81 4.30 - 5.80 M/cumm [facility] MCV 89.2 81.3 - 96.4 fL [facility] MCH 31.6 27.1 - 33.3 pg [facility] MCHC 35.4 32.3 - 35.7 g/dL [facility] RDW CV 13.1 11.1 - 14.9 % [facility] RDW SD 42.8 35.7 - 48.1 fL [facility] Blood 03/12/2025 4:30 PM CDT 03/12/2025 4:33 PM CDT Son Rondon NP LAB BLOOD ORDERABLES Fin al Result [facility] [address] [facility] [place] [address] * Comprehensive metabolic panel (03/12/2025 4:30 PM CDT) Sodium 138 135 - 145 mmol/L Potassium, pl 4.4 3.3 - 4.9 mmol/L [facility] Chloride 103 97 - 110 mmol/L [facility] CO2 22 22 - 32 mmol/L [facility] Anion gap 13 2 - 15 mmol/L [facility] BUN 13 6 - 25 mg/dL [facility] Creatinine 0.90 0.80 - 1.30 mg/dL [facility] Glucose 143 70 - 199 mg/dL [facility] Comment: Interpretive Data Fasting glucose >/= 126 [...] classification and Diagnosis of Diabetes Diabetes Care 202; 46: S19-S40. Current interpretive data was last revised 2022. Calcium 10.2 8.5 - 10.3 mg/dL [facility] Bilirubin, total 0.5 0.1 - 1.2 mg/dL [facility] Protein, pl 7.2 6.5 - 8.5 g/dL [facility] Albumin 4.5 3.5 - 5.0 g/dL [facility] Alk phos 43 40 - 130 Units/L [facility] ALT 27 7 - 55 Units/L [facility] AST 17 10 - 50 Units/L [facility] Blood 03/12/2025 4:30 PM CDT 03/12/2025 4:33 PM CDT us Son Rondon NP LAB BLOOD ORDERABLES Fin al Result [facility] [address] [facility] Department [place] [address] * XR Chest PA Lateral 2 Views [...] signed by: Esteban Flores M.D., MPH us Sonkris Rondon SMOKING PIPE MOUNTER IMG XR PROCEDURES Final Result * ECG 12 lead (03/12/2025 3:41 PM CDT) 03/12/2025 3:41 PM CDT Narrative [facility] - 03/12/2025 4:23 PM CDT Vent Rate: 121 bpm RR Interval: 492 msec TN Interval: 124 msec QRS Duration: 90 msec QT Interval: 302 msec QTC Interval: 374 msec P-R-T Roann: 45 - 16 - 56 degrees IMPRESSION: SINUS TACHYCARDIA ABNORMAL RHYTHM ECG Electronically Signed By: Tapan Verduzco DO, [facility] us Bj Leger DO ECG ORDERABLES Final Re sult [facility] * TN AN ELECTIVE ENDOTRACHEAL AIRWAY, TN AN PROCEDURE PLACEHOLDER (03/06/2025 12:16 PM CDT) [...] with: silk tape Number of attempts: 1 [address] [facility] STEREOTYPER APPRENTICE ANESTHESIA ORDERABLE S Final Result from Last 3 Months Insurance [facility] PLUS [facility] PL[facility] Care Teams Gold Prospector Relationship Specialty Start Date End Date Ignacio Feldman MD [address] [phone] PCP - General Internal Medicine 03/31/25
--- OUTSIDE RECORDS SUMMARY | 2025-04-10 19:24 | XMS_ITS | Patient Health Record ---
[facility] Address [address] [place] [phone] Care Team Providers Care Cotton Bag Clipper Name Role Phone Dr. Doris Chi Primary Care Provider [phone] Reason For Referral No Information Medications Medication SIG (Take, Route, Fr equency, Duration) Notes Start Date End Date Status PARoxetine HCl 30mg TAKE 1 TABLET DAILY ORAL 05/0209/21/1899 Active Plan Of Treatment Next Appt Details Provider Name:Doris Chi, 04/27/2025 09:20:00 AM, [address] [place], [address], Insurance Providers Payer Name Payer Address Payer Phone Subscriber Number Group Number Insured Name Patient Relationship to Insured Coverage Start Date Coverage End Date [facility] [address] [address] [place] [address] [id number] Demarco Aceves Self - patient is the insured
--- OUTSIDE RECORDS SUMMARY | 2025-04-10 19:24 | XMS_ITS | Encounter Summary ---
Author Organization [facility] Address [address] [place] [address] Care Team Providers Care Anti Tank Missileman Name Role Phone Ignacio Feldman MD Primary Care Provider + Reason for Visit * Reason Comments Tinnitus Headache Encounter Details Date Type Department Care Team (Late st Contact Info) Description 04/10/2025 4:57 PM CDT - 04/10/2025 6:54 PM CDT Emergency 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 Gender Identity Not on file Sexual Orientation Not on file documented as of this encounter Medications at Time of Discharge atorvastatin (LIPITOR) 10 mg tablet Take 1 tablet (10 mg total) by mouth daily 06/25/2024 butalbital-aceta minophen-caffein e (ESGIC) 50-325-40 mg per tablet Take 1 tablet by mouth every 4 (four) hours as needed for headaches 15 tablet 04/08/2025 gabapentin (NEURONTIN) 300 mg capsule Take 1 capsule (300 mg total) by mouth as needed 08/21/2024 hydrOXYzine (ATARAX) 25 mg tablet Take 1 tablet (25 mg total) by mouth every 6 (six) hours 12 tablet 03/24/2025 losartan (COZAAR) 50 mg tablet Take 1 tablet (50 mg total) by mouth daily 03/03/2024 metoprolol tartrate (LOPRESSOR) 25 mg immediate release tablet Take 1 tablet (25 mg total) by mouth 2 (two) times a day 09/24/2024 mirtazapine (REMERON) 30 mg tablet Take 1.5 tablets (45 mg total) by mouth nightly 09/24/2024 PARoxetine (PAXIL) 30 mg tablet Take 0.5 tablets (15 mg total) by mouth daily 08/15/2024 documented as of this encounter Discharge Disposition Disposition Code Departure Means Destination Left without being seen documented in this encounter Plan of Treatment Not on file documented as of this encounter Visit Diagnoses Not on filedocumented in this encounter Care Teams Anti Tank Missileman Relationship Specialty Start Date End Date Ignacio Feldman MD [address] [address] PCP - General Internal Medicine 03/31/25 documented as of this encounter
[2025-04-10 19:59] VITALS: BP 154/83; PULSE 97; RESP 18; O2SAT 96
--- NOTE | 2025-04-10 20:02 | ED_ITS ---
HPI - General Adult General Chief complaint: Ear Stated complaint: tinnitus Time Seen by Provider: 04/10/25 18:48 History of Present Illness HPI narrative: 54-year-old male with history of tinnitus present to the emergency department for evaluation for worsening right ear pain. Patient states he does have follow-up with his urologist on Thursday. Related Data Allergies Allergy/AdvReac Type Severity Reaction Status Date / Time Penicillins Allergy Swelling Verified 04/10/25 17:45 Review of Systems Review of Systems: All systems reviewed & are unremarkable except as noted in HPI and below Exam Narrative: APPEARANCE: Uncomfortable appearing HEAD: normocephalic, atraumatic. EYES: PERRLA/EOMI, conjunctivae clear. NOSE: Normal no drainage EARS:TMS clear with good light reflex. THROAT: Pharynx clear, no exudate. NECK: Supple. No adenopathy, no masses. RESPIRATORY: Airway patent, respirations nonlabored. Clear to auscultation bilaterally, no rales, rhonchi, wheezing. CARDIOVASCULAR: Regular rate and rhythm without murmurs rubs or gallops. ABDOMINAL: Soft, nontender, nondistended, normal bowel sounds MUSCULOSKELETAL: Moves all extremities. Strength/ROM intact, No edema, No calf tenderness. NEURO: Alert. Cranial nerves II through XII intact. Good gait. Good coordination SKIN: Warm, dry. Normal Color Course Vital Signs Vital signs: Vital Signs Temperature 97.8 F 04/10/25 17:47 Pulse Rate 97 04/10/25 17:47 Respiratory Rate 16 04/10/25 17:47 Blood Pressure 118/97 H 04/10/25 17:47 Pulse Oximetry 96 04/10/25 17:47 Temperature 97.8 F 04/10/25 17:47 Pulse Rate 97 04/10/25 19:59 Respiratory Rate 18 04/10/25 19:59 Blood Pressure 154/83 H 04/10/25 19:59 Pulse Oximetry 96 04/10/25 19:59 Medical Decision Making [facility] Narrative Medical decision making narrative: 54-year-old male with history of tinnitus present to the emergency department for evaluation for persistent right ear tinnitus. Patient does have follow-up scheduled with his neurologist on Thursday. Patient states he has responded well to a migraine cocktail. Patient was treated with IV saline, IV Benadryl, IV Toradol, IV Ativan and IV Reglan. Patient did feel improved with treatment. Differential Diagnosis Differential Diagnosis: Otitis media, otalgia, otitis externa, tinnitus, anxiety Vital Signs Vital Signs: Vital Signs Temperature 97.8 F 04/10/25 17:47 Pulse Rate 97 04/10/25 17:47 Respiratory Rate 16 04/10/25 17:47 Blood Pressure 118/97 H 04/10/25 17:47 Pulse Oximetry 96 04/10/25 17:47 Temperature 97.8 F 04/10/25 17:47 Pulse Rate 97 04/10/25 19:59 Respiratory Rate 18 04/10/25 19:59 Blood Pressure 154/83 H 04/10/25 19:59 Pulse Oximetry 96 04/10/25 19:59 Discharge Plan Discharge Clinical Impression: Tinnitus Patient Disposition: Home Condition: Stable Instructions: Antibiotic Form, Tinnitus (ED) Additional Instructions: Have close follow-up with your neurologist for your tinnitus. Patient Language: Surinamese Prescriptions: New metoclopramide HCl [Reglan] 10 mg tablet 10 mg PO Q6H PRN (Reason: nausea and vomiting) Qty: 14 0RF lorazepam [Ativan] 0.5 mg tablet 0.5 mg PO BID PRN (Reason: anxiety) Qty: 14 0RF Follow-up/Referrals: PHYSICIAN,MACHINE STAPLER [Primary Care Provider] -
[2025-04-10] MEDS: KETOROLAC 15 MG/ML VIAL (*BKC) IV PUSH (20:28)
[2025-04-10] MEDS: LORazepam INJ (*CRX) 2 MG/ML VIAL 0.5 MG IV PUSH (20:28)
[2025-04-10] MEDS: LACTATED RINGERS 1,000 ML 999 ML IV CONT (20:28)
[2025-04-10] MEDS: METOCLOPRAMIDE HCL INJ 10 MG/2 ML VIAL IV PUSH (20:29)
== END 2025-04-10 21:15 | disposition home or self-care (01) ==
PROVIDERS: Emergency Provider Emergency Medicine
DX: H93.11 Tinnitus, right ear (principal)
CPT/HCPCS: 96361; 96374; 96375; 99284; J1200; J1885; J2060; J2765; J7120

== ENCOUNTER 2025-04-18 05:58 | Emergency (ER) | payer OTHER, SELFPAY ==
--- OUTSIDE RECORDS SUMMARY | 2025-04-18 06:00 | XMS_ITS | Clinical Summary ---
Author Organization [facility] Address [address] [place] [address] Care Team Providers Care Family Physician Name Role Phone Lasha Patel PA-C Primary Care Provider [phone] Source Comments [facility],non-owned Affiliates and Associated Physician Practices is amultiple site organization consisting of ambulatory clinics and hospital sitesin [place], [place], [place] and [place]. This disclosure is being madepursuant to the Care Everywhere program and may not contain all information available regarding this patient. Last updated 18.[facility] Allergies Active Allergy Reactions Criticality Noted Date Comments Penicillins Urticaria High 03/29/2020 Medications * Be aware that medications may not be up to date on this document. Alwaysverify current medications with the patient. atorvastatin (Lipitor) 10 MG tablet Take 1 (one) tablet by mouth once daily 06/25/20 24 Active losartan (Cozaar) 50 MG tablet Take 1 (one) tablet by mouth once daily 03/03/20 24 Active gabapentin (Neurontin) 300 MG capsule Take 1 (one) capsule by mouth as needed 08/21/20 24 Active PARoxetine (Paxil) 30 MG tablet Take 0.5 (one-half) tablet by mouth once daily 08/15/20 24 Active busPIRone (Buspar) 5 MG tablet Take 1 (one) tablet by mouth 2 times daily Active hydrOXYzine HCl (Atarax) 25 MG tablet Take 1 (one) tablet by mouth 4 times daily as needed for Itching Active mirtazapine (Remeron) 30 MG tablet Take 1 (one) tablet by mouth at bedtime 30 tablet 09/24/19 25 Active metoprolol tartrate IR (Lopressor) 25 MG tablet Take 1 (one) tablet by mouth 2 times daily 60 tablet 01/12/20 25 Active LORazepam (Ativan) 1 MG tablet Take 1 (one) tablet by mouth every 12 hours as needed for Anxiety 6 tablet 01/12/20 25 Active Additional Information Patient not taking.Reported on 04/17/2025 oxymetazoline (Afrin) 0.05 % nasal spray [place] 1 (one) spray into each nostril 2 times daily Please use for not longer than a week 37 mL 01/15/20 25 Active fluticasone propionate (Flonase) 50 MCG/ACT nasal spray [place] 2 (two) sprays into each nostril once daily 1 Each 01/15/20 25 Active loratadine (Claritin) 10 MG tablet Take 1 (one) tablet by mouth once daily 30 tablet 01/15/20 25 Active Apixaban Starter Pack 5 MG TBPK Take 1 Each by mouth as directed 04/15/20 25 Active enoxaparin (Lovenox) 100 MG/ML injection Inject 1 mL subcutaneously every 12 hours 04/16/20 25 Active Betahistine HCl 12 mg cap once daily x 1 week, 12 mg cap BID x 1 week, then 12 mg cap TID 5 g 2 04/17/20 25 Active predniSONE (Deltasone) 50 MG tablet Take 1 (one) tablet by mouth once daily 5 tablet 01/15/20 25 025 Discontin ued(List Clean-Up) Active Problems Problem Noted Date Diagnosed Date Sinus tachycardia 09/23/2024 SVT (supraventricular tachycardia) 09/23/2024 Tinnitus of both ears 09/23/2024 JANELL (generalized anxiety disorder) 06/23/2024 Alcohol use disorder, mild, in early remission 1 Insomnia 06/23/2024 MDD (major depressive disorder) 06/23/2024 Mixed hyperlipidemia 06/23/2024 Smoker 06/23/2024 Cluster headaches 06/23/2024 Encounters Date Type Department Care Team Description 04/17/2025 11:30 AM CDT Office Visit [facility] - ENT [address] [place] [address] Pj Jeffers MD Tinnitus of both ears (Primary Dx); Sensorineural hearing loss (SNHL) of both ears 04/17/2025 Travel from Last 3 Months Immunizations Immunization [...] on file 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 Gender Identity Not on file Sexual Orientation Not on file Last Filed Vital Signs Vital Sign Reading Time Taken Comments Blood Pressure 120/82 04/17/2025 11:38 AM CDT Pulse 102 04/17/2025 11:38 AM CDT Temperature 36.7 C (98.1 F) 01/14/2025 11:36 AM CDT Respiratory Rate 14 01/14/2025 2:30 PM CDT Oxygen Saturation 98% 01/14/2025 3:30 PM CDT Inhaled Oxygen Concentration - - Weight 102.1 kg (225 lb) 04/17/2025 11:38 AM CDT Height 185.4 cm (6' 1) 04/17/2025 11:38 AM CDT Body Mass Index 29.69 04/17/2025 11:38 AM CDT Plan of Treatment Upcoming Encounters Date Type Department Care Team (Late st Contact Info) Description 07/20/2025 12:45 PM CDT Office Visit [facility] - ENT [address], [address] [place] [address] Pj Jeffers MD [address] [place] [address] Health Maintenance Due Date Last Done Comments [...] METABOLIC PANEL STAT 01/14/2025 12:14 PM CDT from Last 3 Months or Most Recently Relevant to Health Maintenance Results * (ABNORMAL) COMPREHENSIVE METABOLIC PANEL (01/14/2025 12:14 PM CDT) [facility] Glucose 88 70 - 99 mg/dL 01/14/2025 12:34 PM CDT [facility] Sodium 141 136 - 145 mmol/L 01/14/2025 12:34 PM CDT [facility] Potassium 4.4 3.5 - 5.1 mmol/L 01/14/2025 12:34 PM CDT [facility] Chloride 109(H) 98 - 107 mmol/L 01/14/2025 12:34 PM CDT [facility] CO2 26 22 - 29 mmol/L 01/14/2025 12:34 PM CDT [facility] Calcium 10.0 8.4 - 10.4 mg/dL 01/14/2025 12:34 PM CDT [facility] Anion Gap 6 6 - 16 mmol/L 01/14/2025 12:34 PM CDT [facility] BUN 13 7 - 26 mg/dL 01/14/2025 12:34 PM CDT [facility] Creatinine 1.00 0.72 - 1.25 mg/dL 01/14/2025 12:34 PM CDT [facility] Alkaline Phosphatase 43 40 - 150 U/L 01/14/2025 12:34 PM CDT [facility] ALT 31 6 - 57 U/L 01/14/2025 12:34 PM CDT [facility] AST 19 10 - 48 U/L 01/14/2025 12:34 PM CDT [facility] Protein Total 7.2 6.4 - 8.3 gm/dL 01/14/2025 12:34 PM CDT [facility] Albumin 4.3 3.4 - 5.0 gm/dL 01/14/2025 12:34 PM CDT [facility] Bilirubin Total 0.6 0.2 - 1.2 mg/dL 01/14/2025 12:34 PM CDT [facility] eGFR by CKD-EPI 89(L) >=90 mL/min/1.7 3 m2 01/14/2025 12:34 PM CDT [facility] Blood BLOOD SPECIMEN / Unknown Venipuncture / Unknown 01/14/2025 12:14 PM CDT 01/14/2025 12:17 PM CDT Mario Whaley MD LAB - CHEMISTRY ORDERABLES Mira l Result [facility] [address] [place] [address] from Last 3 Months or Most Recently Relevant to Health Maintenance Insurance [facility] Advance Directives * Full Code (Latest Code Status on File) Date Activated Date Inactivated Comments 09/23/2024 6:37 PM 09/24/2024 7:13 PM Care Teams Family Physician Relationship Specialty Start Date End Date Lasha Patel PA-C [address] [place] [phone] PCP - General Physician [employer] 08/22/24
--- OUTSIDE RECORDS SUMMARY | 2025-04-18 06:00 | XMS_ITS | Encounter Summary ---
Author Organization [facility] Address [address] [place] [address] Care Team Providers Care Investment Trader Name Role Phone Jorge Lasha QUICK Primary Care Provider [phone] Encounter Details Date Type Department Care Team (Latest Contact Info) Description 04/17/2025 Travel Social History Tobacco Use Types Packs/Day Years Used Date Smoking Tobacco: Former Cigarettes Smokeless Tobacco: Never Comments:Smoke half pack a d ay Alcohol Use Standard Drinks/Week Comments Not Currently 0 (1 standard drink = 0.6 oz pur e alcohol) 56 days sober Sex and Gender Information Value Date Recorded Sex Assigned at Not on file 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 Answer Date of Assessment Author No 09/24/2024 4:17 PM Gardenia Flaherty RN * Is person blind or have serious difficulty seeing? Answer Date of Assessment Author No 09/24/2024 4:17 PM Gardenia Flaherty RN * Does person have serious difficulty walking/climbing stairs? Answer Date of Assessment Author No 09/24/2024 4:17 PM Gardenia Flaherty RN * Does person have difficulty dressing/bathing? Answer Date of Assessment Author No 09/24/2024 4:17 PM Gardenia Flaherty RN * Does person have difficulty doing errands alone? Answer Date of Assessment Author No 09/24/2024 4:17 PM Gardenia Flaherty RN documented as of this encounter Mental Status * Does person have difficulty concentrating/remembering/making decisions? Answer Entry Date Author No 09/24/2024 4:17 PM CLEARANCE REP Gardenia Royal RN documented in this encounter Plan of Treatment Upcoming Encounters Date Type Department Care Team (Late st Contact Info) Description 07/20/2025 12:45 PM CDT Office Visit [facility] - ENT [address], [address] [place] [phone] Pj Jeffers MD [address] [place] [address] documented as of this encounter Visit Diagnoses Not on filedocumented in this encounter Care Teams Investment Trader Relationship Specialty Start Date End Date Lasha Patel PA-C [address] [facility] [address] [place] [phone] PCP - General Physician [employer] 08/22/24 documented as of this encounter
--- OUTSIDE RECORDS SUMMARY | 2025-04-18 06:00 | XMS_ITS | Encounter Summary ---
Author Organization [facility] Address [address] [place] [address] Care Team Providers Care Choral Teacher Name Role Phone Jorge Lasha QUICK Primary Care Provider [phone] Reason for Visit * Reason Comments Establish Care Ringing in Ear Encounter Details Date Type Department Care Team (Late st Contact Info) Description 04/17/2025 11:30 AM CDT Office Visit [facility] - ENT [address], [address] [place] [phone] Pj Jeffers MD [address] [facility] [address] [place] [address] Tinnitus of both ears (Primary Dx); Sensorineural hearing loss (SNHL) of both ears Social History Tobacco Use Types Packs/Day Years [...] on file 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 Gender Identity Not on file Sexual Orientation Not on file documented as of this encounter Last Filed Vital Signs Vital Sign Reading Time Taken Comments Blood Pressure 120/82 04/17/2025 11:38 AM CDT Pulse 102 04/17/2025 11:38 AM CDT Temperature - - Respiratory Rate - - Oxygen Saturation - - Inhaled Oxygen Concentration - - Weight 102.1 kg (225 lb) 04/17/2025 11:38 AM CDT Height 185.4 cm (6' 1) 04/17/2025 11:38 AM CDT Body Mass Index 29.69 04/17/2025 11:38 AM CDT documented in this encounter Functional Status * Is person [...] Entry Date Author No 09/24/2024 4:17 PM Gardenia Flaherty RN documented in this encounter Patient Instructions * Patient Instructions* Silvina Carreno - 04/17/2025 11:39 AM CDT Thank you for visiting [facility] Otolaryngology - Head & Neck Surgery. We appreciate your confidence in allowing us to participate in your health care. You may receive a survey about your visit with us today. Making our patients happy isn???t just happy talk; it???s ourmission. Please tell us if we made the right impression on you- and how we can serve you better. Please SAVE the information below, it will assist you when it???s time for you to contact us. To MAKE - CHANGE - CANCEL an office appointment If you become ill, need to be seen before your next scheduled appointment, or need to cancel or reschedule an appointment, please call our office at [phone] Thursday through Thursday from 8:30 am to4:30 pm. You can also request a routine appointment through your [employer] account. Prescription Refills Contact your pharmacy to request all refills. The pharmacy will need to fax the request to us at . Please allow a minimum of 48-72 hours for your prescription to be completed. Your pharmacy will notify you when your prescription is ready to be picked up. Medical Emergency / After Hours Contact Information If you have a medical emergency, please call 911 or go to the nearest emergency room. For urgent medical calls, which cannot wait until the office opens, please call the medical exchange at and ask the scribing machine operator to page the ENT physician credit card control clerk. *Caller ID blocking service will need to be turned off for your call to be returned. We also specialize in Hearing Aids, Allergy testing, swallowing disorders, voice problems, cancer diagnosis, and so much more. Visit our website at [email or web address] for information about our practice and an interactive health encyclopedia. documented in this encounter Progress Notes * Pj Jeffers MD - 04/17/2025 11:30 AM CDT Images from the original note were not included. Otolaryngology-Head and Neck Surgery Otology, Neurotology, and Lateral Skull Base Surgery Consultation PATIENT INFORMATION Demarco Aceves 54 year old male Today's Date: 04/17/2025 REASON FOR CONSULTATION: Tinnitus HPI/ROS/Allergies HPI: Demarco Aceves is a 54 year old male with bilateral SNHL and tinnitus. Today, patient reports of severe tinnitus that started about 8.5 months ago when he went into a treatment facility for alcohol abuse. While in the facility, he had difficulty sleeping and was treatedwith medication. A few days after starting the medication, his tinnitus began. Describes it as an audible scream between his eyes. He will hear popping when he swallows and will be painful. Was given hearing aids he will wear intermittently. He continues to have difficulty sleeping. States he has noticed an increase in tinnitus with increased salt. Reports he has had improvement with tinnitus following ED evals. States he is somewhat a detail oriented person, but has not been motivated since the ringing. Denies otorrhea, vertigo, aural fullness. + H/o septoplasty with Dr. Hart Plans for MRI at [facility] from Dr. Hart. Occupation: Used to be a plumbing and heating mechanic Denies h/o otologic surgery. Plans to start injectable blood thinner, enoxaparin. Upcoming outpatient therapy with [facility]. Review of Systems: An 12-system review of systems was reviewed, and positive findings noted per HPI, otherwise all other systems are negative. Allergies: Allergies[1] PMH/PSH/SH/FH/Meds PAST MEDICAL HISTORY Past Medical History[2] PAST SURGICAL HISTORY Past Surgical History[3] SOCIAL HISTORY: Social History[4] FAMILY HISTORY No family history of wound healing abnormalities. MEDICATIONS Medications Ordered Prior to Encounter[5] Physical Exam Physical Examination Ht 1.854 m (6' 1) Wt 102.1 kg (225 lb) Body mass index is 29.69 kg/m??. Physical Exam: Constitutional: Alert, No acute Distress; Well developed/well nourished Neuro:cranial nerves II-XII grossly intact. Of note CN V bilaterally are intact and symmetric and HB 1 bilaterally. CV/Pulm: Normal respirations and peripheral pulses. Eyes: PERRL, EOMI Face/Skin: normal appearance, no lesions/masses Right Ear: Mastoid non-tender, pinna WNL without lesion, EAC clear, TM intact with normal landmarks, LINDA Left Ear: Mastoid non-tender, pinna WNL without lesion, EAC clear, TM intact with normal landmarks,LINDA Head thrust:Negative Nose: patent bilaterally, septum fairly straight, Turbinates intact, Mucosal membranes intact Mouth and oropharynx: symmetric tongue mobility, no lesions/masses/ulcers, normal dentition Neck: supple, no lymphadenopathy, no masses, Trachea midline, Thyroid without palpable nodules. Voice: strong MusculoSkeletal: moves all extremities well Abdomen soft NT, ND Extremities: No edema, 2+, regular pulse Audiologic Testing and Imaging Audio: 03/23/25 [facility] audiogram personally reviewed with bilateral SNHL CT: CT head personally reviewed with well aerated middle ear and well-pneumatized mastoid. MRI: None. ASSESSMENT & PLAN Demarco Aceves is a 54 year old male with bilateral SNHL and tinnitus. - External audio reviewed in detail. - Recommend hearing protection. - Continue use of bilateral amplification during all waking hours. - The natural history and pathophysiology of tinnitus was discussed in detail. We discussed that this is most likely in current research a centrally mediated process. - Tinnitus coping strategies were discussed. This includes improved sleep, hydration limiting vasoconstrictive agents increased cardiovascular exercise keeping a symptom diary and treating associatedstressors and anxiety. Additionally the consideration of CBT was discussed in detail. - We discussed in detail the consideration of beta histamine which he wishes to try. Prescription placed recommend starting with 1 pill daily for 1 week, 2 pills daily for a week then 3 pills daily for 12 weeks. - Follow up in 3-4 months, sooner if there are any issues. The total time spent today was 65 minutes performing chart prep, review of data including imaging and audiologic testing, and visit with the patient. This was independent of any procedure. Beatris Ramirez, acted as scribe for Pj Jeffers MD in documenting the service or procedure. To the best of my knowledge, I recorded what was dictated by Pj Jeffers MD. I, Pj Jeffers MD have reviewed the initial documentation provided by Beatris Renee and affirm that it is an accurate restatement of my dictated record of services. I understand and acknowledge that I am responsible for the accuracy of the documentation. Pj Jeffers MD Control Chemist at [facility] [employer] Department of Otolaryngology - Head and Neck Surgery Division of Otology, Neurotology and Lateral Skull Base Surgery [1] Allergies Allergen Reactions Penicillins Urticaria [2] Past Medical History: Diagnosis Date High blood pressure High cholesterol Insomnia [3] No past surgical history on file. [4] Social History Tobacco Use Smoking status: Former Types: Cigarettes Smokeless tobacco: Never Tobacco comments: Smoke half pack a day Vaping Use Vaping status: Never Used Substance Use Topics Alcohol use: Not Currently Comment: 56 days sober Drug use: Never [5] Current Outpatient Medications on File Prior to Visit Medication Sig Dispense Refill atorvastatin (Lipitor) 10 MG tablet Take 1 (one) tablet by mouth once daily busPIRone (Buspar) 5 MG tablet Take 1 (one) tablet by mouth 2 times daily fluticasone propionate (Flonase) 50 MCG/ACT nasal spray [place] 2 (two) sprays into each nostril oncedaily 1 Each 0 gabapentin (Neurontin) 300 MG capsule Take 1 (one) capsule by mouth as needed hydrOXYzine HCl (Atarax) 25 MG tablet Take 1 (one) tablet by mouth 4 times daily as needed for Itching loratadine (Claritin) 10 MG tablet Take 1 (one) tablet by mouth once daily 30 tablet 0 LORazepam (Ativan) 1 MG tablet Take 1 (one) tablet by mouth every 12 hours as needed for Anxiety 6 tablet 0 losartan (Cozaar) 50 MG tablet Take 1 (one) tablet by mouth once daily metoprolol tartrate IR (Lopressor) 25 MG tablet Take 1 (one) tablet by mouth 2 times daily 60 tablet 0 mirtazapine (Remeron) 30 MG tablet Take 1 (one) tablet by mouth at bedtime 30 tablet 0 oxymetazoline (Afrin) 0.05 % nasal spray [place] 1 (one) spray into each nostril 2 times daily Pleaseuse for not longer than a week 37 mL 0 PARoxetine (Paxil) 30 MG tablet Take 0.5 (one-half) tablet by mouth once daily predniSONE (Deltasone) 50 MG tablet Take 1 (one) tablet by mouth once daily 5 tablet 0 No current facility-administered medications on file prior to visit. documented in this encounter Plan of Treatment Upcoming Encounters Date Type Department Care Team (Late st Contact Info) Description 07/20/2025 12:45 PM CDT Office Visit [facility] - ENT [address] [facility] [address] [place] [address] Pj Jeffers MD [address] [facility] [address] [place] [address] documented as of this encounter Visit Diagnoses Diagnosis Tinnitus of both ears- Primary Unspecified tinnitus Sensorineural hearing loss (SNHL) of both ears documented in this encounter Care Teams Choral Teacher Relationship Specialty Start Date End Date Lasha Patel PA-C [address] [facility] [address] [place] [address] PCP - General Physician [employer] [facility] 08/22/24 documented as of this encounter
--- OUTSIDE RECORDS SUMMARY | 2025-04-18 06:01 | XMS_ITS | Clinical Summary ---
Author Organization [facility] Address [facility] [place] [address] Care Team Providers Care Funeral Workers Name Role Phone Miscellaneous, Not In File Primary Care Provider Unavailable Allergies Active Allergy Reactions Criticality Noted Date Comments Penicillins Angioedema High 11/12/2024 Medications atorvastatin (LIPITOR) 10 mg tablet Take 1 tablet (10 mg total) by mouth daily 024 Active gabapentin (NEURONTIN) 300 mg capsule Take 1 capsule (300 mg total) by mouth as needed 024 Active losartan (COZAAR) 50 mg tablet Take 1 tablet (50 mg total) by mouth daily 024 Active metoprolol tartrate (LOPRESSOR) 25 mg immediate release tablet Take 1 tablet (25 mg total) by mouth 2 (two) times a day 025 Active mirtazapine (REMERON) 30 mg tablet Take 1.5 tablets (45 mg total) by mouth nightly 025 Active PARoxetine (PAXIL) 30 mg tablet Take 0.5 tablets (15 mg total) by mouth daily 024 Active hydrOXYzine (ATARAX) 25 mg tablet Take 1 tablet (25 mg total) by mouth every 6 (six) hours 12 tablet 025 Active butalbital-acetami nophen-caffeine (ESGIC) 50-325-40 mg per tablet Take 1 tablet by mouth every 4 (four) hours as needed for headaches 15 tablet 025 Active apixaban 5 mg (74 tabs) tablets,dose packIndications:pu lmonary thromboembolism Take 10 mg (2 tablets) by mouth 2 (two) times a day for 7 days, then take 5 mg (1 tablet) by mouth 2 (two) times a day thereafter. 74 tablet 025 Active hydrOXYzine (ATARAX) 25 mg tablet Take 1 tablet (25 mg total) by mouth 4 (four) times a day as needed 2024 Discontinued(T herapy completed) apixaban 5 mg (74 tabs) tablets,dose pack Take 10 mg (2 tablets) by mouth 2 (two) times a day for 7 days, then take 5 mg (1 tablet) by mouth 2 (two) times a day thereafter. 74 tablet 025 2024 Discontinued Encounters Date Type Department Care Team Description 04/15/2025 1:48 PM CDT - 04/15/2025 7:06 PM CDT Emergency [facility] Emergency Department [address] [place] [address] Nela Abad MD Paulsen, Robbie Ellen, MD Anxiety (Primary Dx); Tinnitus of both ears; Other migraine without status migrainosus, not intractable; Other acute pulmonary embolism without acute cor pulmonale (HCC) Discharge Disposition: Discharge to home or self care 04/12/2025 8:15 PM CDT - 04/13/2025 1:00 AM CDT Emergency [facility] Emergency Department [address] [place] [address] Nela Abad MD Tinnitus of both ears (Primary Dx); Other migraine without status migrainosus, not intractable Discharge Disposition: Discharge to home or self care 04/10/2025 4:57 PM CDT - 04/10/2025 6:54 PM CDT Emergency [facility] Emergency Department [address] [place] [address] Discharge Disposition: Left without being seen 04/08/2025 1:41 PM CDT - 04/08/2025 5:20 PM CDT Emergency [facility] Emergency Department [address] [place] [address] Saba Tapia MD Acute intractable headache, unspecified headache type (Primary Dx) Discharge Disposition: Discharge to home or self care 04/06/2025 5:35 AM CDT - 04/06/2025 7:56 AM CDT Emergency [facility] Emergency Department [address] [place] [address] Franklyn Mclain MD Thomas, Jenna Marie, MD Tinnitus of both ears (Primary Dx); Other migraine with status migrainosus, not intractable Discharge Disposition: Discharge to home or self care 04/03/2025 Telephone [facility] Otolaryngology [address] [place] [address] Elle Meehan MS 03/23/2025 11:55 PM CDT - 03/24/2025 3:08 AM CDT Emergency [facility] Emergency Department [address] [place] [address] Nina Bejarano MD Anxiety (Primary Dx); Tinnitus of both ears Discharge Disposition: Discharge to home or self care 03/22/2025 Orders Only [facility] [address] [facility] [address] [place] [address] Lasha Patel PA Primary osteoarthritis involving multiple joints (Primary Dx); Chronic pain syndrome 03/15/2025 9:13 AM CDT - 03/15/2025 10:56 AM CDT Emergency [facility] Emergency Department [address] [place] [address] Bj Leger DO Tinnitus, unspecified laterality (Primary Dx); Anxiety Discharge Disposition: Discharge to home or self care 03/12/2025 3:40 PM CDT - 03/12/2025 7:29 PM CDT Emergency [facility] Emergency Department [address] [place] [address] Anxiety (Primary Dx) Discharge Disposition: Discharge to home or self care 03/12/2025 9:30 AM CDT - 03/12/2025 12:34 PM CDT Emergency [facility] Emergency Department [address] [place] [address] Ken Monreal MD Tinnitus of both ears (Primary Dx) Discharge Disposition: Discharge to home or self care 03/06/2025 12:00 PM CDT - 03/06/2025 1:05 PM CDT Surgery [facility] Operating Room [address] [place] [address] Santos Hart MD SEPTOPLASTY AND BILATERAL INFERIOR TURBINATE REDUCTION [48177 (CPT )] 03/06/2025 11:52 AM CDT Anesthesia Event [facility] Operating Room [address] [place] [address] Ivelisse Benton DO Riordan, Isabella Rossi, MD 03/06/2025 9:56 AM CDT - 03/06/2025 2:50 PM CDT Hospital Encounter [facility] Operating Room [address] [place] [address] Santos Hart MD Discharge Disposition: Discharge to home or self care from Last 3 Months Surgical History Surgery Date Site/Laterality Comments NASAL SEPTUM SURGERY 03/06/2025 Face/Bilateral Procedure: SEPTOPLASTY AND BILATERAL INFERIOR TURBINATE REDUCTION; Surgeon: Santos Hart MD; Location: [facility] OPERATING ROOM; Service: Otolaryngology; Laterality: [...] making you feel afraid or unsafe? 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 Gender Identity Not on file Sexual Orientation Not on file Obstetrics History Last Filed Vital Signs Vital Sign Reading Time Taken Comments Blood Pressure 138/90 04/15/2025 5:00 PM CDT Pulse 113 04/15/2025 5:45 PM CDT Temperature 36.2 C (97.2 F) 04/15/2025 1:42 PM CDT Respiratory Rate 15 04/15/2025 2:15 PM CDT Oxygen Saturation 98% 04/15/2025 5:45 PM CDT Inhaled Oxygen Concentration - - Weight 103.4 kg (228 lb) 04/15/2025 1:47 PM CDT Height 188 cm (6' 2) 04/12/2025 6:59 PM CDT Body Mass Index 29.27 04/12/2025 6:59 PM CDT Plan of Treatment Health Maintenance [...] Procedure Name Priority Date/Time Associated Diagnosis Comments PRO B-TYPE NATRIURETIC PEPTIDE Add-On 04/15/2025 4:34 PM CDT TROPONIN T HIGH-SENSITIVITY 2-HOUR Timed 04/15/2025 4:[address] CHEST PE W CONTRAST ED 04/15/2025 4:27 PM CDT PROTIME-INR Add-On 04/15/2025 3:17 PM CDT D-DIMER, QUANTITATIVE STAT 04/15/2025 3:17 PM CDT XR CHEST 1 VIEW ED 04/15/2025 1:59 PM CDT EGFR STAT 04/15/2025 1:57 PM CDT DIFFERENTIAL AUTO STAT 04/15/2025 1:5 7 PM CDT TROPONIN T HIGH-SENSITIVITY SERIES (BASELINE, 2HR, 4HR, 6HR) STAT 04/15/2025 1:57 PM CDT CBC WITH AUTO DIFFERENTIAL STAT 04/15/2025 1:57 PM CDT COMPREHENSIVE METABOLIC PANEL STAT 04/15/2025 1:57 PM CDT ECG 12-LEAD STAT 04/15/2025 1:45 PM CDT MAGNESIUM STAT 04/12/2025 11:58 PM CDT EGFR STAT 04/08/2025 3:16 PM CDT DIFFERENTIAL [...] ECG 12-LEAD STAT 03/12/2025 3:41 PM CDT MI AN PROCEDURE PLACEHOLDER Routine 03/06/2025 12:16 PM CDT MI AN ELECTIVE ENDOTRACHEAL AIRWAY Routine 03/06/2025 12:16 PM CDT MI SEPTOPLASTY/SUBMUCOU S RESECJ W/WO CARTILAGE GRF 03/06/2025 11:59 AM CDT Deviated nasal septum Other specified disorders of nose and nasal sinuses Nasal congestion Hypertrophy of nasal turbinates Case Notes NO SPECIAL NEEDS / NO REP NEEDED FOR THIS CASE from Last 3 Months Results * Troponin T high-sensitivity 2-hour (04/15/2025 4:34 PM CDT) Trop T hs <6 <=22 ng/L Comment: Interpretive Data For further hscTnT resources including the diagnostic algorithm and an aid in interpretation, copy and paste this link: https://nrl.testcatalog.org/show/hsTrop Current Interpretive Data last revised 2020. Trop T hs delta 0 ng/L [facility] Trop T hs interp Insignificant [facility] Blood 04/15/2025 4:34 PM CDT 04/15/2025 4:39 PM CDT us Nela Abad MD LAB BLOOD ORDERA BLES Final Result [facility] [address] [facility] Department [place] [address] * Pro B-type natriuretic peptide (04/15/2025 4:34 PM CDT) NT-proBNP <36 <=300 pg/mL Comment: Interpretive Comments: A. Dyspnea in Acute Care Setting All Ages: < 300 pg/ml, acute heart failure unlikely. < 50 yrs: 300 - 450 pg/ml, further investigation warranted. > 450 pg/ml, acute heart failure likely. 50 - 74 yrs: 300 - 900 pg/ml, further investigation warranted. > 900 pg/ml, acute heart failure likely . > or = 75 yrs: 450 - 1800 pg/ml, further investigation warranted. > 1800 pg/ml, acute heart failure likely. B. Non-acute Setting < 75 yrs < 125 pg/ml, rules out heart failure. > or = 125 pg/ml, further investigation warranted. > or = 75 yrs < 450 pg/ml, rules out heart failure. > or = 450 pg/ml, further investigation warranted. - Knowledge of each individual patient's NT-proBNP range may be more useful than using similar cut-points for every patient. Please note that marked elevations in NT-proBNP levels may be observed in state other than Left Ventricular Congestive Failure, including: acute coronary syndromes, right heart strain/failure (including pulmonary embolism and cor pulmonale), critical illness, renal failure, as well as advanced age. - References: 1. Susan SALINAS et.al. Eur Heart J. 2006:27:330-337. 2. Sulaiman RW, Sj SALES. J. AM Kassy Cardiol: Cardiovasc Imag. 2009;2: 216- 225. Interpretive Data Last Revised Date: 2018. Blood 04/15/2025 4:34 PM CDT 04/15/2025 5:22 PM CDT us Salvador Saldivar MD LAB BLOOD ORDERABLES [facility] al Result [facility] [address] [facility] Department [place] [address] * CT Chest PE (CTA) W Contrast (04/15/2025 4:27 PM CDT) Anatomical Region Laterality Modality Body N/A Computed Tomogra phy 04/15/2025 8:46 PM CDT Impressions 04/15/2025 8:46 PM CDT 1. Segmental and subsegmental pulmonary emboli in the right lower lobe with CT evidence of right heart strain. 2. Age-indeterminate compression deformities of T4 and T5, favored to be chronic. Correlate with reported tenderness. A preliminary report was provided by the tele-radiologist. The Critical results were discussed with Dr. Carranza by Dr. Cutler on 04/15/2025 at 4:50 PM Electronically signed by: Ignacio De La Rosa M.D. Narrative 04/15/2025 8:46 PM CDT EXAMINATION: CT CHEST PE (CTA) W CONTRAST TECHNIQUE: Computed Tomographic images were acquired using a Chest Angiographic protocol optimized for pulmonary embolism. Contrast enhanced transaxial images were obtained following the intravenous administration of 60 ml of nonionic contrast. Multiplanar reformatted images and three-dimensional images were obtained on the 3-D workstation and sent to the PACS archival system. HISTORY: Palpitations, concern for PE. COMPARISON: Chest x-ray 04/15/2025 FINDINGS: There are filling defects in segmental and subsegmental branches of the right lower lobe (series 9 image 99). The right ventricular to left ventricular ratio is greater than 1. The thoracic aorta is normal in caliber. The great vessel origins are normal. The central and peripheral airways are patent and normal. Mild dependent atelectasis present in both lungs. There are no suspicious pulmonary nodules or opacities. The thyroid is normal. The esophagus is normal. There is no mediastinal lymphadenopathy. There are age-indeterminate compression deformities of T4 and T5. Soft tissues are normal.. Procedure Note Ignacio De La Rosa III, MD - 04/15/2025 EXAMINATION: CT CHEST PE (CTA) W CONTRAST TECHNIQUE: Computed Tomographic images were acquired using a Chest Angiographic protocol optimized for pulmonary embolism. Contrast enhanced transaxial images were obtained following the intravenous administration of 60 ml of nonionic contrast. Multiplanar reformatted images and three-dimensional images were obtained on the 3-D workstation and sent to the PACS archival system. HISTORY: Palpitations, concern for PE. COMPARISON: Chest x-ray 04/15/2025 FINDINGS: There are filling defects in segmental and subsegmental branches of the right lower lobe (series 9 image 99). The right ventricular to left ventricular ratio is greater than 1. The thoracic aorta is normal in caliber. The great vessel origins are normal. The central and peripheral airways are patent and normal. Mild dependent atelectasis present in both lungs. There are no suspicious pulmonary nodules or opacities. The thyroid is normal. The esophagus is normal. There is no mediastinal lymphadenopathy. There are age-indeterminate compression deformities of T4 and T5. Soft tissues are normal.. IMPRESSION: 1. Segmental and subsegmental pulmonary emboli in the right lower lobe with CT evidence of right heart strain. 2. Age-indeterminate compression deformities of T4 and T5, favored to be chronic. Correlate with reported tenderness. A preliminary report was provided by the tele-radiologist. The Critical results were discussed with Dr. Carranza by Dr. Cutler on 04/15/2025 at 4:50 PM Electronically signed by: Ignacio De La Rosa M.D. us Nela Abad MD IMG CT PROCEDURE S Final Result * Protime-INR (04/15/2025 3:17 PM CDT) PT 12.0 9.7 - 13.0 sec INR 1.11 0.90 - 1.20 [facility] Comment: Interpretive data Oral anticoagulant therapeutic ranges: Venous thromboembolism prophylaxis or treatment: 2.0-3.0 CARDIOLOGY Standard range: 2.0-3.0 High-intensity range: 2.5-3.5 Refer to indication-specific guidelines for appropriate target ranges for prosthetic heart valve replacement. Current interpretive data was last revised on 2019. Blood 04/15/2025 3:17 PM CDT 04/15/2025 5:41 PM CDT Narrative [facility] - 04/15/2025 5:45 PM CDT Baseline prior to apixaban initiation. us Salvador Saldivar MD LAB BLOOD ORDERABLES Fin al Result [facility] [address] [facility] [place] [address] * (ABNORMAL) D-dimer, quantitative (04/15/2025 3:17 PM CDT) D-Dimer 1,271(H) <=499 ng/mL FEU Comment: Interpretive data FDA approved the D-dimer, in conjunction with a low or moderate pretest probability score, to exclude venous thromboembolic events (VTE) (PE and DVT) in outpatients when the D-dimer result is < 500 ng/ml FEU. Evidence supports using an age-adjusted D-dimer cut-off for outpatients older than 50 (age x 10) to improve specificity without sacrificing sensitivity. Example: age 68, VTE cut-off 680 ng/ml FEU. References; Schouten HT et al. Brit Med J. 2013;346:f2492. Truman et al. Annals Int Med. 2015;163:701-11. Current interpretive data was last revised on 2019. Blood 04/15/2025 3:17 PM CDT 04/15/2025 3:23 PM CDT us Nela Abad MD LAB BLOOD ORDERA BLES Final Result Performing Organization Address City/State/[facility] Co id Phone Number [facility] [address] [facility] [place] [address] * XR Chest 1 Vw Portable (If patient hemodynamically UNstable or UNable to ambulate) (04/15/2025 1:59PM CDT) Anatomical Region Laterality Modality Body, Chest N/A Computed Radiogr aphy 04/15/2025 2:03 PM CDT Impressions 04/15/2025 2:03 PM CDT A comparison study is dated 03/12/2025. The lungs are clear. No focal consolidations. No pleural effusion or pneumothorax. Heart size is normal. Electronically signed by: Santos Cleary M.D. Narrative 04/15/2025 2:03 PM CDT EXAMINATION: XR CHEST 1 VIEW Procedure Note Santos Cleary MD - 04/15/2025 EXAMINATION: XR CHEST 1 VIEW IMPRESSION: A comparison study is dated 03/12/2025. The lungs are clear. No focal consolidations. No pleural effusion or pneumothorax. Heart size is normal. Electronically signed by: Santos Cleary M.D. Nela Abad MD IMG XR PROCEDURE S Final Result * Troponin T high-sensitivity series (baseline, 2hr, 4hr, 6hr) (04/15/2025 1:57 PM CDT) Trop T hs <6 <=22 ng/L Comment: Interpretive Data For further hscTnT resources including the diagnostic algorithm and an aid in interpretation, copy and paste this link: https://nrl.testcatalog.org/show/hsTrop Current Interpretive Data last revised 2020. Blood 04/15/2025 1:57 PM CDT 04/15/2025 2:08 PM CDT Nela Abad MD LAB BLOOD ORDERA BLES Final Result [facility] [address] [facility] Department [place] [address] * eGFR (04/15/2025 1:57 PM CDT) eGFR 89 >=60 mL/min/1. 73 m2 Comment: Interpretive Data [...] interpretive data was last reviewed 2021. Blood 04/15/2025 1:57 PM CDT 04/15/2025 2:08 PM CDT Nela Abad MD LAB BLOOD ORDERA BLES Final Result [facility] [address] [place] [address] * (ABNORMAL) Differential, auto (04/15/2025 1:57 PM CDT) Pathologist [facility] Neutrophil abs 5.37 1.50 - 6.50 K/cumm Imm gran abs 0.06 0.00 - 0.10 K/cumm [facility] Lymphocyte abs 0.80 0.80 - 3.30 K/cumm [facility] PW Monocyte abs 0.04(L) 0.20 - 0.80 K/cumm [facility] Eosinophil abs 0.00 0.00 - 0.50 K/cumm [facility] Basophil abs 0.02 0.00 - 0.10 K/cumm [facility] Neutrophil pct 85.4 % [facility] Comment: Interpretive Data Percent cell count reference ranges are not reported, since discordance with absolute values may lead to misinterpretation of CBC data. Current Interpretive Data was last revised on 2017. Imm gran pct 1.0 % [facility] Comment: Interpretive Data Percent cell count reference ranges are not reported, since discordance with absolute values may lead to misinterpretation of CBC data. Current Interpretive Data was last revised on 2017. Lymphocyte pct 12.7 % [facility] Comment: Interpretive Data Percent cell count reference ranges are not reported, since discordance with absolute values may lead to misinterpretation of CBC data. Current Interpretive Data was last revised on 2017. Monocyte pct 0.6 % [facility] Comment: Interpretive Data Percent cell count reference ranges are not reported, since discordance with absolute values may lead to misinterpretation of CBC data. Current Interpretive Data was last revised on 2017. Eosinophil pct 0.0 % [facility] Comment: Interpretive Data Percent cell count reference ranges are not reported, since discordance with absolute values may lead to misinterpretation of CBC data. Current Interpretive Data was last revised on 2017. Basophil pct 0.3 % [facility] Comment: Interpretive Data Percent cell count reference ranges are not reported, since discordance with absolute values may lead to misinterpretation of CBC data. Current Interpretive Data was last revised on 2017. Blood 04/15/2025 1:57 PM CDT 04/15/2025 2:08 PM CDT Nela Abad MD LAB BLOOD ORDERA BLES Final Result Performing Organization Address [facility]/ZIP Co de Phone Number [facility] [address] [facility] [place] [address] * (ABNORMAL) CBC with auto differential (04/15/2025 1:57 PM CDT) Pathologist [facility] WBC 6.29 3.80 - 9.90 K/cumm Hgb 15.6 13.0 - 17.5 g/dL [facility] Hct 45.3 38.9 - 50.3 % [facility] PW Plt 217 150 - 400 K/cumm [facility] MPV 8.8(L) 9.1 - 12.3 fL [facility] RBC 5.05 4.30 - 5.80 M/cumm [facility] MCV 89.7 81.3 - 96.4 fL [facility] MCH 30.9 27.1 - 33.3 pg [facility] MCHC 34.4 32.3 - 35.7 g/dL [facility] RDW CV 12.8 11.1 - 14.9 % [facility] PW RDW SD 41.8 35.7 - 48.1 fL [facility] Blood 04/15/2025 1:57 PM CDT 04/15/2025 2:08 PM CDT Nela Abad MD LAB BLOOD ORDERA BLES Final Result Performing Organization Address City/[facility]/ZIP Co de Phone Number [facility] [address] [facility] Department of [employer] [place], [place] [id number] * (ABNORMAL) Comprehensive metabolic panel (04/15/2025 1:57 PM CDT) Sodium 137 135 - 145 mmol/L Potassium, pl 4.4 3.3 - 4.9 mmol/L [facility] Chloride 104 97 - 110 mmol/L [facility] CO2 20(L) 22 - 32 mmol/L [facility] Anion gap 13 2 - 15 mmol/L [facility] BUN 14 6 - 25 mg/dL [facility] Creatinine 1.00 0.80 - 1.30 mg/dL [facility] Glucose 137 70 - 199 mg/dL [facility] Comment: Interpretive Data Fasting glucose >/= 126 [...] interpretive data was last revised 2022. Calcium 9.3 8.5 - 10.3 mg/dL [facility] Bilirubin, total 0.4 0.1 - 1.2 mg/dL [facility] Protein, pl 7.4 6.5 - 8.5 g/dL [facility] Albumin 4.5 3.5 - 5.0 g/dL [facility] Alk phos 49 40 - 130 Units/L [facility] ALT 27 7 - 55 Units/L [facility] AST 16 10 - 50 Units/L [facility] Blood 04/15/2025 1:57 PM CDT 04/15/2025 2:08 PM CDT us Nela Abad MD LAB BLOOD ORDERA BLES Final Result [facility] [address] [place] [address] * ECG 12 lead (04/15/2025 1:45 PM CDT) 04/15/2025 1:45 PM CDT Narrative [facility] - 04/15/2025 2:27 PM CDT Vent Rate: 133 bpm RR Interval: 451 msec MI Interval: 135 msec QRS Duration: 96 msec QT Interval: 302 msec QTC Interval: 380 msec P-R-T Bradford: 44 - -2 - 59 degrees IMPRESSION: SINUS TACHYCARDIA NONSPECIFIC T-WAVE ABNORMALITY ABNORMAL RHYTHM ECG Electronically Signed By: Tapan Verduzco, DO, FACC Nela Abad MD ECG ORDERABLES Final Result Performing Organization Address City/[facility]/ZIP Co de Phone Number [facility] * Magnesium (04/12/2025 11:58 PM CDT) Magnesium 2.0 1.4 - 2.5 mg/dL Blood 04/12/2025 11:5 8 PM CDT 04/13/2025 12:12 AM CDT Nela Abad MD LAB BLOOD ORDERA BLES Final Result Performing Organization Address City/[facility]/ZIP Co de Phone Number [facility] [address] [facility] Department [place] [address] * eGFR (04/08/2025 3:16 PM CDT) eGFR [...] MD LAB BLOOD ORDERABLES Fin al Result [facility] [address] [place] [address] * Differential, auto (04/08/2025 3:16 PM CDT) [...] 2017. Imm gran pct 0.9 % [facility] Comment: Interpretive Data Percent cell count reference ranges are not reported, since discordance with absolute values may lead to misinterpretation of CBC data. Current Interpretive Data was last revised on 2017. Lymphocyte pct 31.0 % [facility] Comment: Interpretive Data Percent cell count reference ranges are not reported, since discordance with absolute values may lead to misinterpretation of CBC data. Current Interpretive Data was last revised on 2017. Monocyte pct 7.1 % [facility] Comment: Interpretive Data Percent cell count reference ranges are not reported, since discordance with absolute values may lead to misinterpretation of CBC data. Current Interpretive Data was last revised on 2017. Eosinophil pct 1.6 % [facility] Comment: Interpretive Data Percent cell count reference ranges are not reported, since discordance with absolute values may lead to misinterpretation of CBC data. Current Interpretive Data was last revised on 2017. Basophil pct 0.8 % [facility] Comment: Interpretive Data Percent cell count reference ranges are not reported, since discordance with absolute values may lead to misinterpretation of CBC data. Current Interpretive Data was last revised on 2017. Blood 04/08/2025 3:16 PM CDT 04/08/2025 3:22 PM CDT Saba Tapia MD LAB BLOOD ORDERABLES Fin al Result [facility] [address] [facility] Department [place] [address] * (ABNORMAL) CBC with auto differential (04/08/2025 3:16 PM CDT) WBC 8.64 3.80 - 9.90 K/cumm Hgb 15.6 13.0 - 17.5 g/dL [facility] Hct 44.3 38.9 - 50.3 % [facility] Plt 221 150 - 400 K/cumm [facility] MPV 9.0(L) 9.1 - 12.3 fL [facility] RBC 4.89 4.30 - 5.80 M/cumm [facility] MCV 90.6 81.3 - 96.4 fL [facility] MCH 31.9 27.1 - 33.3 pg [facility] PW MCHC 35.2 32.3 - 35.7 g/dL [facility] PW RDW CV 13.2 11.1 - 14.9 % [facility] PW RDW SD 42.9 35.7 - 48.1 fL [facility] Blood 04/08/2025 3:16 PM CDT 04/08/2025 3:22 PM CDT us Saba Tapia MD LAB BLOOD ORDERABLES Fin al Result [facility] [address] Department [place] [address] * Comprehensive metabolic panel (04/08/2025 3:16 PM CDT) Sodium 137 135 - 145 mmol/L Potassium, pl 4.1 3.3 - 4.9 mmol/L [facility] Chloride 101 97 - 110 mmol/L [facility] CO2 23 22 - 32 mmol/L [facility] Anion gap 13 2 - 15 mmol/L [facility] BUN 12 6 - 25 mg/dL [facility] Creatinine 0.90 0.80 - 1.30 mg/dL [facility] Glucose 88 70 - 199 mg/dL [facility] Comment: Interpretive Data Fasting glucose >/= 126 [...] Calcium 10.1 8.5 - 10.3 mg/dL [facility] Bilirubin, total 0.3 0.1 - 1.2 mg/dL [facility] Protein, pl 7.1 6.5 - 8.5 g/dL [facility] Albumin 4.3 3.5 - 5.0 g/dL [facility] Alk phos 52 40 - 130 Units/L [facility] ALT 28 7 - 55 Units/L [facility] AST 20 10 - 50 Units/L [facility] Comment:Hemolyzed result may be falsely elevated. Blood 04/08/2025 3:16 PM CDT 04/08/2025 3:22 PM CDT Saba Tapia MD LAB BLOOD ORDERABLES Fin al Result Performing Organization Address [facility] Co de Phone Number [address] [address] * Troponin T high-sensitivity 2-hour (03/12/2025 6:32 PM CDT) Trop T hs <6 <=22 ng/L Comment: Interpretive Data For further hscTnT resources including the diagnostic algorithm and an aid in interpretation, copy and paste this link: https://nrl.[employer].org/show/hsTrop Current Interpretive Data last revised 2020. Trop T hs delta 0 ng/L [facility] Trop T hs interp Insignificant [facility] Blood 03/12/2025 6:32 PM CDT 03/12/2025 6:34 PM CDT Son Rondon NP LAB BLOOD ORDERABLES Fin al Result Performing Organization Address [facility] Co de Phone Number [address] [address] * Troponin T high-sensitivity series (baseline, 2hr, 4hr, 6hr) (03/12/2025 4:30 PM CDT) Trop T hs <6 <=22 ng/L Comment: Interpretive Data For further hscTnT resources including the diagnostic algorithm and an aid in interpretation, copy and paste this link: https://nrl.[employer].org/show/hsTrop Current Interpretive Data last revised 2020. Blood 03/12/2025 4:30 PM CDT 03/12/2025 4:33 PM CDT Son Rondon NP LAB BLOOD ORDERABLES Fin al Result Performing Organization Address [facility]/ZIP Co de Phone Number [address] [place] [address] * eGFR (03/12/2025 4:30 PM CDT) [facility] eGFR >90 >=60 mL/min/1. 73 m2 Comment: [...] data was last reviewed 2021. Blood 03/12/2025 4:3 0 PM CDT 03/12/2025 4:33 PM CDT Son Rondon NP LAB BLOOD ORDERABLES Fin al Result [facility] [address] Department [place] [address] * (ABNORMAL) Differential, auto (03/12/2025 4:30 PM CDT) Pathologist [facility] Neutrophil abs 5.87 1.50 - 6.50 K/cumm Imm gran abs 0.06 0.00 - 0.10 K/cumm [facility] Lymphocyte abs 0.97 0.80 - 3.30 K/cumm [facility] Monocyte abs 0.08(L) 0.20 - 0.80 K/cumm [facility] Eosinophil abs 0.01 0.00 - 0.50 K/cumm [facility] Basophil abs 0.03 0.00 - 0.10 K/cumm [facility] Neutrophil pct 83.7 % [facility] Comment: Interpretive Data Percent cell count reference ranges are not reported, since discordance with absolute values may lead to misinterpretation of CBC data. Current Interpretive Data was last revised on 2017. Imm gran pct 0.9 % [facility] Comment: Interpretive Data Percent cell count reference ranges are not reported, since discordance with absolute values may lead to misinterpretation of CBC data. Current Interpretive Data was last revised on 2017. Lymphocyte pct 13.8 % [facility] Comment: Interpretive Data Percent cell count reference ranges are not reported, since discordance with absolute values may lead to misinterpretation of CBC data. Current Interpretive Data was last revised on 2017. Monocyte pct 1.1 % [facility] Comment: Interpretive Data Percent cell count reference ranges are not reported, since discordance with absolute values may lead to misinterpretation of CBC data. Current Interpretive Data was last revised on 2017. Eosinophil pct 0.1 % [facility] Comment: Interpretive Data Percent cell count reference ranges are not reported, since discordance with absolute values may lead to misinterpretation of CBC data. Current Interpretive Data was last revised on 2017. Basophil pct 0.4 % [facility] Comment: Interpretive Data Percent cell count reference ranges are not reported, since discordance with absolute values may lead to misinterpretation of CBC data. Current Interpretive Data was last revised on 2017. Blood 03/12/2025 4:30 PM CDT 03/12/2025 4:33 PM CDT us Son Rondon NP LAB BLOOD ORDERABLES Fin al Result [facility] [address] [facility] Department [place] [address] * (ABNORMAL) CBC with auto differential (03/12/2025 4:30 PM CDT) WBC 7.02 3.80 - 9.90 K/cumm Hgb 15.2 13.0 - 17.5 g/dL [facility] Hct 42.9 38.9 - 50.3 % [facility] Plt 225 150 - 400 K/cumm [facility] MPV 8.8(L) 9.1 - 12.3 fL [facility] RBC 4.81 4.30 - 5.80 M/cumm [facility] MCV 89.2 81.3 - 96.4 fL [facility] MCH 31.6 27.1 - 33.3 pg [facility] MCHC 35.4 32.3 - 35.7 g/dL [facility] RDW CV 13.1 11.1 - 14.9 % [facility] RDW SD 42.8 35.7 - 48.1 fL [facility] Blood 03/12/2025 4:30 PM CDT 03/12/2025 4:33 PM CDT Son Rondon PRIZE COORDINATOR LAB BLOOD ORDERABLES Fin al Result Performing Organization Address City/State/[facility] Co de Phone Number [facility] [address] Department [place] [address] * Comprehensive metabolic panel (03/12/2025 4:30 PM CDT) Sodium 138 135 - 145 mmol/L Potassium, pl 4.4 3.3 - 4.9 mmol/L [facility] Chloride 103 97 - 110 mmol/L [facility] CO2 22 22 - 32 mmol/L [facility] Anion gap 13 2 - 15 mmol/L [facility] BUN 13 6 - 25 mg/dL [facility] Creatinine 0.90 0.80 - 1.30 mg/dL [facility] Glucose 143 70 - 199 mg/dL [facility] Comment: Interpretive Data Fasting glucose >/= 126 [...] Calcium 10.2 8.5 - 10.3 mg/dL [facility] Bilirubin, total 0.5 0.1 - 1.2 mg/dL [facility] Protein, pl 7.2 6.5 - 8.5 g/dL [facility] Albumin 4.5 3.5 - 5.0 g/dL [facility] Alk phos 43 40 - 130 Units/L [facility] ALT 27 7 - 55 Units/L [facility] AST 17 10 - 50 Units/L [facility] Blood 03/12/2025 4:30 PM CDT 03/12/2025 4:33 PM CDT us Son Rondon NP LAB BLOOD ORDERABLES Fin al Result [facility] [address] [facility] [place] [address] * XR Chest PA Lateral 2 Views [...] Esteban Flores M.D., MPH us Son Rondon PRIZE COORDINATOR IMG XR PROCEDURES Final Result * ECG 12 lead (03/12/2025 3:41 PM CDT) 03/12/2025 3:41 PM CDT Narrative [facility] - 03/12/2025 4:23 PM CDT Vent Rate: 121 bpm RR Interval: 492 msec MI Interval: 124 msec QRS Duration: 90 msec QT Interval: 302 msec QTC Interval: 374 msec P-R-T Bradford: 45 - 16 - 56 degrees IMPRESSION: SINUS TACHYCARDIA ABNORMAL RHYTHM ECG Electronically Signed By: Tapan Verduzco DO, FACC us Bj Leger DO ECG ORDERABLES Final Re sult [facility] * [place] AN ELECTIVE ENDOTRACHEAL AIRWAY, [place] AN PROCEDURE PLACEHOLDER (03/06/2025 12:16 PM CDT) [...] silk tape Number of attempts: 1 David Marcos CRNA ANESTHESIA ORDERABLE S Final Result from Last 3 Months Insurance [employer] Care Teams [employer]eral [employer] Relationship Specialty Start Date End Date Miscellaneous, Not In File PCP - General 04/15/25
--- OUTSIDE RECORDS SUMMARY | 2025-04-18 06:01 | XMS_ITS | Patient Health Record ---
Author Organization [facility]. Address [address] [place] [id number] Care Team Providers Care Shake Splitter Name Role Phone Dr. Doris Chi Primary Care Provider [phone] Reason For Referral No Information Medications Medication SIG (Take, Route, Fr equency, Duration) Notes Start Date End Date Status PARoxetine HCl 30mg TAKE 1 TABLET DAILY ORAL 05/0209/21/1899 Active Plan Of Treatment Next Appt Details Provider Name:Doris Chi, 04/27/2025 09:20:00 AM, [address] [place], [address], Insurance Providers Payer Name Payer Address Payer Phone Subscriber Number Group Number Insured Name Patient Relationship to Insured Coverage Start Date Coverage End Date [facility] [address] [address] [place] [address] [id number] Demarco Aceves Self - patient is the insured
--- OUTSIDE RECORDS SUMMARY | 2025-04-18 06:01 | XMS_ITS | Referral Summary ---
Author Organization [facility] Address [address] [place] [address] Care Team Providers Care Social Work Professor Name Role Phone Miscellaneous, Not In File Primary Care Provider Unavailable Encounters Date Type Department Care Team Description 04/15/2025 1:48 PM CDT - 04/15/2025 7:06 PM CDT Emergency [facility] Emergency Department [address] [place] [address] Nela Abad MD Paulsen, Robbie Ellen, MD Anxiety (Primary Dx); Tinnitus of both ears; Other migraine without status migrainosus, not intractable; Other acute pulmonary embolism without acute cor pulmonale (HCC) Discharge Disposition: Discharge to home or self care 04/12/2025 8:15 PM CDT - 04/13/2025 1:00 AM CDT Emergency [facility] Emergency Department [address] [place] [address] Nela Abad MD Tinnitus of both ears (Primary Dx); Other migraine without status migrainosus, not intractable Discharge Disposition: Discharge to home or self care 04/10/2025 4:57 PM CDT - 04/10/2025 6:[address] [facility] Emergency Department [address] [place] [address] Discharge Disposition: Left without being seen 04/08/2025 1:41 PM CDT - 04/08/2025 5:20 PM CDT Emergency [facility] Emergency Department [address] [place] [address] Saba Tapia MD Acute intractable headache, unspecified headache type (Primary Dx) Discharge Disposition: Discharge to home or self care 04/06/2025 5:35 AM CDT - 04/06/2025 7:[address] [facility] Emergency Department [address] [place] [address] Franklyn Mclain MD Thomas, Jenna Marie, MD Tinnitus of both ears (Primary Dx); Other migraine with status migrainosus, not intractable Discharge Disposition: Discharge to home or self care 04/03/2025 Telephone [facility] Otolaryngology [facility] [place] [address] Meehan, ElleMS juliocesar 03/23/2025 11:55 PM CDT - 03/24/2025 3:08 AM CDT Emergency [facility] Emergency Department [address] [place] [address] Nina Bejarano MD Anxiety (Primary Dx); Tinnitus of both ears Discharge Disposition: Discharge to home or self care 03/22/2025 Orders Only [facility] [address] [place] [address] [facility] [address] [address] Lasha Patel PA Primary osteoarthritis involving multiple joints (Primary Dx); Chronic pain syndrome 03/15/2025 9:13 AM CDT - 03/15/2025 10:56 AM CDT Emergency [facility] Emergency Department [address] [place] [address] Bj Leger DO Tinnitus, unspecified laterality (Primary Dx); Anxiety Discharge Disposition: Discharge to home or self care 03/12/2025 3:40 PM CDT - 03/12/2025 7:29 PM CDT Emergency [facility] Emergency Department [address] [place] [address] Anxiety (Primary Dx) Discharge Disposition: Discharge to home or self care 03/12/2025 9:30 AM CDT - 03/12/2025 12:34 PM CDT Emergency [facility] Emergency Department [address] [place] [address] Ken Monreal MD Tinnitus of both ears (Primary Dx) Discharge Disposition: Discharge to home or self care 03/06/2025 12:00 PM CDT - 03/06/2025 1:05 PM CDT Surgery [facility] Operating Room [address] [place] [address] Santos Hart MD SEPTOPLASTY AND BILATERAL INFERIOR TURBINATE REDUCTION [28507 (CPT )] 03/06/2025 11:52 AM CDT Anesthesia Event [facility] Operating Room [address] [place] [address] Ivelisse Benton DO Riordan, Isabella Rossi, MD 03/06/2025 9:56 AM CDT - 03/06/2025 2:50 PM CDT Hospital Encounter [facility] Operating Room [address] [place] [address] Santos Hart MD Discharge Disposition: Discharge to home or self care from Last 3 Months Allergies Active Allergy Reactions Criticality Noted Date Comments Penicillins Angioedema High 11/12/2024 Medications atorvastatin (LIPITOR) 10 mg tablet Take 1 tablet (10 mg total) by mouth daily Active gabapentin (NEURONTIN) 300 mg capsule Take 1 capsule (300 mg total) by mouth as needed Active losartan (COZAAR) 50 mg tablet Take 1 tablet (50 mg total) by mouth daily Active metoprolol tartrate (LOPRESSOR) 25 mg immediate release tablet Take 1 tablet (25 mg total) by mouth 2 (two) times a day Active mirtazapine (REMERON) 30 mg tablet Take 1.5 tablets (45 mg total) by mouth nightly 025 Active PARoxetine (PAXIL) 30 mg tablet Take 0.5 tablets (15 mg total) by mouth daily Active hydrOXYzine (ATARAX) 25 mg tablet Take [...] day thereafter. 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 2006:27:330-337. 2. Sulaiman RW, Sj AM. J. AM Kassy Cardiol: Cardiovasc Imag. 2009;2: 216- 225. Interpretive Data Last Revised Date: 2018. Blood 04/15/2025 4:34 PM CDT 04/15/2025 5:22 PM CDT us Salvador Saldivar MD LAB BLOOD ORDERABLES Fin al Result [facility] [address] Department [place] [address] * CT Chest PE (CTA) W Contrast [...] signed by: Ignacio De La Rosa M.D. Nela Abad MD [facility] PROCEDURE S Final Result * Protime-INR (04/15/2025 3:17 PM CDT) PT 12.0 9.7 - 13.0 sec INR 1.11 0.90 - 1.20 [facility] Comment: Interpretive data Oral anticoagulant therapeutic ranges: Venous thromboembolism prophylaxis or treatment: 2.0-3.0 CARDIOLOGY Standard range: 2.0-3.0 High-intensity range: 2.5-3.5 Refer to indication-specific guidelines for appropriate target ranges for prosthetic heart valve replacement. Current interpretive data was last revised on 2019. Blood 04/15/2025 3:17 PM CDT 04/15/2025 5:41 PM CDT Narrative [facility] - 04/15/2025 5:45 PM CDT Baseline prior to apixaban initiation. us Salvador Saldivar MD LAB BLOOD ORDERABLES Fin al Result Performing Organization Address City/[facility]/ZIP Co de Phone Number [facility] [address] Department [place] [address] * (ABNORMAL) D-dimer, quantitative (04/15/2025 3:17 PM [...] ORDERA BLES Final Result Performing Organization Address City/[facility]/ZIP Co de Phone Number [facility] [address] Department [place] [address] * XR Chest 1 Vw Portable (If [...] MD LAB BLOOD ORDERA BLES Final Result [facility] [address] Department [place] [address] * eGFR (04/15/2025 1:57 PM CDT) Pathologist [facility] eGFR 89 >=60 mL/min/1. 73 m2 Comment: [...] MD LAB BLOOD ORDERA BLES Final Result [facility] [address] [facility] Department [place] [address] * (ABNORMAL) Differential, auto (04/15/2025 1:57 PM CDT) Pathologist [facility] Neutrophil abs 5.37 1.50 - 6.50 K/cumm Imm gran abs 0.06 0.00 - 0.10 K/cumm [facility] Lymphocyte abs 0.80 0.80 - 3.30 K/cumm [facility] Monocyte abs 0.04(L) 0.20 - 0.80 K/cumm [facility] Eosinophil abs 0.00 0.00 - 0.50 K/cumm [facility] Basophil abs 0.02 0.00 - 0.10 K/cumm [facility] Neutrophil pct 85.4 % [facility] Comment: Interpretive Data Percent cell count reference ranges are not reported, since discordance with absolute values may lead to misinterpretation of CBC data. Current Interpretive Data was last revised on 2017. Imm gran pct 1.0 % [facility] Comment: Interpretive Data Percent cell count reference ranges are not reported, since discordance with absolute values may lead to misinterpretation of CBC data. Current Interpretive Data was last revised on 2017. Lymphocyte pct 12.7 % [facility] Comment: Interpretive Data Percent cell count reference ranges are not reported, since discordance with absolute values may lead to misinterpretation of CBC data. Current Interpretive Data was last revised on 2017. Monocyte pct 0.6 % [facility] Comment: Interpretive Data Percent cell count reference ranges are not reported, since discordance with absolute values may lead to misinterpretation of CBC data. Current Interpretive Data was last revised on 2017. Eosinophil pct 0.0 % [facility] Comment: Interpretive Data Percent cell count reference ranges are not reported, since discordance with absolute values may lead to misinterpretation of CBC data. Current Interpretive Data was last revised on 2017. Basophil pct 0.3 % [facility] Comment: Interpretive Data Percent cell count reference ranges are not reported, since discordance with absolute values may lead to misinterpretation of CBC data. Current Interpretive Data was last revised on 2017. Blood 04/15/2025 1:57 PM CDT 04/15/2025 2:08 PM CDT us Nela Abad MD LAB BLOOD ORDERA BLES Final Result [facility] [address] [facility] Department [place] [address] * (ABNORMAL) CBC with auto differential (04/15/2025 1:57 PM CDT) WBC 6.29 3.80 - 9.90 K/cumm Hgb 15.6 13.0 - 17.5 g/dL [facility] Hct 45.3 38.9 - 50.3 % [facility] Plt 217 150 - 400 K/cumm [facility] MPV 8.8(L) 9.1 - 12.3 fL [facility] RBC 5.05 4.30 - 5.80 M/cumm [facility] MCV 89.7 81.3 - 96.4 fL [facility] MCH 30.9 27.1 - 33.3 pg [facility] MCHC 34.4 32.3 - 35.7 g/dL [facility] RDW CV 12.8 11.1 - 14.9 % [facility] RDW SD 41.8 35.7 - 48.1 fL [facility] Blood 04/15/2025 1:57 PM CDT 04/15/2025 2:08 PM CDT Nela Abad MD LAB BLOOD ORDERA BLES Final Result [facility] [address] Department [place] [address] * (ABNORMAL) Comprehensive metabolic panel (04/15/2025 1:57 PM CDT) Sodium 137 135 - 145 mmol/L Potassium, pl 4.4 3.3 - 4.9 mmol/L [facility] Chloride 104 97 - 110 mmol/L [facility] CO2 20(L) 22 - 32 mmol/L [facility] Anion gap 13 2 - 15 mmol/L [facility] BUN 14 6 - 25 mg/dL [facility] Creatinine 1.00 0.80 - 1.30 mg/dL [facility] Glucose 137 70 - 199 mg/dL [facility] Comment: Interpretive Data Fasting glucose >/= [...] - 5.0 g/dL [facility] Alk phos 49 40 - 130 Units/L [facility] ALT 27 7 - 55 Units/L [facility] AST 16 10 - 50 Units/L [facility] Blood 04/15/2025 1:57 PM CDT 04/15/2025 2:08 PM CDT Nela Abad MD LAB BLOOD ORDERA BLES Final Result Performing Organization Address City/[facility] Co de Phone Number [facility] [address] Department [place] [address] * ECG 12 lead (04/15/2025 1:45 PM CDT) 04/15/2025 1:45 PM CDT Narrative [facility] - 04/15/2025 2:27 PM CDT Vent Rate: 133 bpm RR Interval: 451 msec MA Interval: 135 msec QRS Duration: 96 msec QT Interval: 302 msec QTC Interval: 380 msec P-R-T [place]: 44 - -2 - 59 degrees IMPRESSION: SINUS TACHYCARDIA NONSPECIFIC T-WAVE ABNORMALITY ABNORMAL RHYTHM ECG Electronically Signed By: Tapan Verduzco DO, FACC Nela Abad MD ECG ORDERABLES Final Result Performing Organization Address [facility] Co de Phone Number [facility] [employer] [facility] * Magnesium (04/12/2025 11:58 PM CDT) Magnesium 2.0 1.4 - 2.5 mg/dL Blood 04/12/2025 11:5 8 PM CDT 04/13/2025 12:12 AM CDT Nela Abad MD LAB BLOOD ORDERA BLES Final Result Performing Organization Address City/[facility]/ZIP Co de Phone Number [facility] [address] [facility] Department [place] [address] * eGFR (04/08/2025 3:16 PM CDT) eGFR [...] MD LAB BLOOD ORDERABLES Fin al Result [facility] 2 [facility] Department [place] [address] * Differential, auto (04/08/2025 3:16 PM CDT) [...] on 2017. Eosinophil pct 1.6 % [facility] Comment: Interpretive Data Percent cell count reference ranges are not reported, since discordance with absolute values may lead to misinterpretation of CBC data. Current Interpretive Data was last revised on 2017. Basophil pct 0.8 % [facility] Comment: Interpretive Data Percent cell count reference ranges are not reported, since discordance with absolute values may lead to misinterpretation of CBC data. Current Interpretive Data was last revised on 2017. Blood 04/08/2025 3:16 PM CDT 04/08/2025 3:22 PM CDT us Saba Tapia MD LAB BLOOD ORDERABLES Fin al [facility] [address] [facility] Department [place] [address] * (ABNORMAL) CBC with auto differential (04/08/2025 3:16 PM CDT) [facility] WBC 8.64 3.80 - 9.90 K/cumm Hgb 15.6 13.0 - 17.5 g/dL [facility] Hct 44.3 38.9 - 50.3 % [facility] Plt 221 150 - 400 K/cumm [facility] MPV 9.0(L) 9.1 - 12.3 fL [facility] RBC 4.89 4.30 - 5.80 M/cumm [facility] MCV 90.6 81.3 - 96.4 fL [facility] MCH 31.9 27.1 - 33.3 pg [facility] MCHC 35.2 32.3 - 35.7 g/dL [facility] RDW CV 13.2 11.1 - 14.9 % [facility] RDW SD 42.9 35.7 - 48.1 fL [facility] Blood 04/08/2025 3:16 PM CDT 04/08/2025 3:22 PM CDT Saba Tapia MD LAB BLOOD ORDERABLES [facility] al Result [facility] [address] Department [place] [address] * Comprehensive metabolic panel (04/08/2025 3:16 PM CDT) [facility] Sodium 137 135 - 145 mmol/L Potassium, pl 4.1 3.3 - 4.9 mmol/L [facility] Chloride 101 97 - 110 mmol/L [facility] CO2 23 22 - 32 mmol/L [facility] Anion gap 13 2 - 15 mmol/L [facility] BUN 12 6 - 25 mg/dL [facility] Creatinine 0.90 0.80 - 1.30 mg/dL [facility] Glucose 88 70 - 199 mg/dL [facility] Comment: Interpretive Data Fasting glucose >/= [...] total 0.3 0.1 - 1.2 mg/dL [facility] Protein, pl 7.1 6.5 - 8.5 g/dL [...] MD LAB BLOOD ORDERABLES Fin al Result [facility] [address] Department [place] [address] * Troponin T high-sensitivity 2-hour (03/12/2025 6:32 [...] CDT 03/12/2025 6:34 PM CDT Son Rondon [employer] LAB BLOOD ORDERABLES Fin al Result Performing Organization Address [facility] Co de Phone Number [address] [address] * Troponin T high-sensitivity series (baseline, 2hr, 4hr, 6hr) (03/12/2025 4:30 PM CDT) Trop T hs <6 <=22 ng/L Comment: Interpretive Data For further hscTnT resources including the diagnostic algorithm and an aid in interpretation, copy and paste this link: https://nrl.testcatalog.org/show/hsTrop Current Interpretive Data last revised 2020. Blood 03/12/2025 4:30 PM CDT 03/12/2025 4:33 PM CDT Son Rondon [employer] LAB BLOOD ORDERABLES Fin al Result Performing Organization Address [facility] de Phone Number [facility] [address] [place] [address] * eGFR (03/12/2025 4:30 PM CDT) Pathologist [facility] eGFR >90 >=60 mL/min/1. 73 m2 Comment: [...] NP LAB BLOOD ORDERABLES Fin al Result [facility] [address] [facility] Department [place] [address] * (ABNORMAL) Differential, auto (03/12/2025 4:30 PM [...] [facility] Neutrophil pct 83.7 % [facility] Comment: Interpretive Data Percent [...] on 2017. Lymphocyte pct 13.8 % [facility] Comment: Interpretive Data Percent cell count reference ranges are not reported, since discordance with absolute values may lead to misinterpretation of CBC data. Current Interpretive Data was last revised on 2017. Monocyte pct 1.1 % [facility] Comment: Interpretive Data Percent cell count reference ranges are not reported, since discordance with absolute values may lead to misinterpretation of CBC data. Current Interpretive Data was last revised on 2017. Eosinophil pct 0.1 % [facility] Comment: Interpretive Data Percent cell count reference ranges are not reported, since discordance with absolute values may lead to misinterpretation of CBC data. Current Interpretive Data was last revised on 2017. Basophil pct 0.4 % [facility] Comment: Interpretive Data Percent cell count reference ranges are not reported, since discordance with absolute values may lead to misinterpretation of CBC data. Current Interpretive Data was last revised on 2017. Blood 03/12/2025 4:30 PM CDT 03/12/2025 4:33 PM CDT Son Rondon NP LAB BLOOD ORDERABLES Fin al Result Performing Organization Address [facility] Co de Phone Number [facility] [address] [facility] Department [place] [address] * (ABNORMAL) CBC with auto differential (03/12/2025 4:30 PM CDT) Pathologist [facility] WBC 7.02 3.80 - 9.90 K/cumm Hgb 15.2 13.0 - 17.5 g/dL [facility] Hct 42.9 38.9 - 50.3 % [facility] Plt 225 150 - 400 K/cumm [facility] MPV 8.8(L) 9.1 - 12.3 fL [facility] RBC 4.81 4.30 - 5.80 M/cumm [facility] MCV 89.2 81.3 - 96.4 fL [facility] MCH 31.6 27.1 - 33.3 pg [facility] MCHC 35.4 32.3 - 35.7 g/dL [facility] RDW CV 13.1 11.1 - 14.9 % [facility] RDW SD 42.8 35.7 - 48.1 fL [facility] Blood 03/12/2025 4:30 PM CDT 03/12/2025 4:33 PM CDT Son Rondon NP LAB BLOOD ORDERABLES Fin al Result Performing Organization Address City/[facility] Co de Phone Number [facility] [address] [facility] Department [place] [address] * Comprehensive metabolic panel (03/12/2025 4:30 PM CDT) Sodium 138 135 - 145 mmol/L Potassium, pl 4.4 3.3 - 4.9 mmol/L [facility] Chloride 103 97 - 110 mmol/L [facility] CO2 22 22 - 32 mmol/L [facility] Anion gap 13 2 - 15 mmol/L [facility] BUN 13 6 - 25 mg/dL [facility] Creatinine 0.90 0.80 - 1.30 mg/dL [facility] Glucose 143 70 - 199 mg/dL [facility] Comment: [...] 03/12/2025 4:33 PM CDT us Son Rondon [employer] LAB BLOOD ORDERABLES Fin al Result [facility] [address] Department [place] [address] * XR Chest PA Lateral 2 Views [...] Esteban Flores M.D., MPH us Son Rondon [employer] IMG XR PROCEDURES Final Result * ECG 12 lead (03/12/2025 3:41 PM CDT) 03/12/2025 3:41 PM CDT [address]arrative [facility] - 03/12/2025 4:23 PM CDT Vent Rate: 121 bpm RR Interval: 492 msec MA Interval: 124 msec QRS Duration: 90 msec QT Interval: 302 msec QTC Interval: 374 msec P-R-T [place]: 45 - 16 - 56 degrees IMPRESSION: SINUS TACHYCARDIA ABNORMAL RHYTHM ECG Electronically Signed By: Tapan Verduzco DO, [facility] us Bj Leger DO ECG ORDERABLES Final Re sult [facility] * MA AN ELECTIVE ENDOTRACHEAL AIRWAY, MA AN PROCEDURE PLACEHOLDER (03/06/2025 12:16 PM CDT) David Mauro CRNA - 03/06/2025 12:16 PM CDT David [...] Final Result from Last 3 Months Insurance [facility] H[facility]/PPO Address: [facility] [address] [place] [address] [facility] CHOICE PLUS [facility] H[facility]/PPO Address: [facility] [address] [place] [address] Care Teams Social Work Professor Relationship Specialty Start Date End Date Miscellaneous, Not In File PCP - General 04/15/25
[2025-04-18 06:09] VITALS: BP 141/109; PULSE 101; RESP 17; TEMP 36.9; O2SAT 99
--- NOTE | 2025-04-18 06:22 | ED.HA ---
HPI - Headache General Chief Complaint: Headache <Lizet Schultz MD - Last Filed: 04/20/25 13:05> Stated Complaint: headache, tinnitus <Lizet Schultz MD - Last Filed: 04/20/25 13:05> Time Seen by Provider: 04/18/25 06:01 <Lizte Schultz MD - Last Filed: 04/20/25 13:05> History of Present Illness HPI Narrative: Patient has had severe tinnitus and headaches, seen neurologist/had workup and is going to be getting a new treatment once the neurologist gets it delivered, but until then he would like to have a migraine cocktail since it has helped in the past. <Lizet Schultz MD - Last Filed: 04/20/25 13:05> Related Data Allergies/Adverse Reactions: Allergies Allergy/AdvReac Type Severity Reaction Status Date / Time Penicillins Allergy Swelling Verified 04/10/25 17:45 <Lizet Schultz MD - Last Filed: 04/20/25 13:05> Review of Systems Review of Systems: All systems reviewed & are unremarkable except as noted in HPI and below <Lizet Schultz MD - Last Filed: 04/20/25 13:05> Exam Narrative: EXAMINATION OF ORGAN SYSTEMS/BODY AREAS: Constitutional: Vital signs per nursing GENERAL:[No acute distress, non-toxic appearing.] HEAD: Normal with no signs of head trauma. EYES: EOMI, conjunctiva normal ENT: Hearing grossly intact LUNGS: Nonlabored breathing. HEART: [Regular rate and rhythm] ABD: [Soft], [nontender to palpation] EXT: Normal range of motion SKIN: [No rashes or lesions.] NEURO: [Alert and oriented x 3. No gross focal sensory or strength deficits.] Speech was slurred speech, ambulating with normal steady gait, no facial droop PSYCH: Normal affect <Lizet Schultz MD - Last Filed: 04/20/25 13:05> Course Course Emergency Course: [place] impoved with migraine cocktail. Keep f/u with neuro/ent. Has MRI next week. <Esteban Burt MD - Last Filed: 04/18/25 08:00> Vital Signs Vital signs: Vital Signs Temperature 98.5 F 04/18/25 06:09 Pulse Rate 101 H 04/18/25 06:09 Respiratory Rate 17 04/18/25 06:09 Blood Pressure 141/109 H 04/18/25 06:09 Pulse Oximetry 99 04/18/25 06:09 Oxygen Delivery Room Air 04/18/25 06:09 Temperature 98.5 F 04/18/25 06:09 Pulse Rate 85 04/18/25 07:17 Respiratory Rate 15 04/18/25 07:17 Blood Pressure 124/57 L 04/18/25 07:17 Pulse Oximetry 96 04/18/25 07:17 Oxygen Delivery Room Air 04/18/25 06:09 <Lizet Schutlz MD - Last Filed: 04/20/25 13:05> Vital Signs Temperature 98.5 F 04/18/25 06:09 Pulse Rate 101 H 04/18/25 06:09 Respiratory Rate 17 04/18/25 06:09 Blood Pressure 141/109 H 04/18/25 06:09 Pulse Oximetry 99 04/18/25 06:09 Oxygen Delivery Room Air 04/18/25 06:09 Temperature 98.5 F 04/18/25 06:09 Pulse Rate 85 04/18/25 07:17 Respiratory Rate 15 04/18/25 07:17 Blood Pressure 124/57 L 04/18/25 07:17 Pulse Oximetry 96 04/18/25 07:17 Oxygen Delivery Room Air 04/18/25 06:09 <Esteban Burt MD - Last Filed: 04/18/25 08:00> MDM - Headache MDM Narrative Medical decision making narrative: 54-year-old male presents to the emergency department for headache triggered by his tinnitus. Patient is hemodynamically stable. No focal neurological or cranial nerve deficits on exam. No meningeal signs. The headache was gradual in onset, it is not exertional and does not appear consistent with subarachnoid hemorrhage or intracranial bleeding. No trauma. Patient is given headache cocktail including Reglan, Benadryl, fluids, which he states has helped in the past. He also reports that he missed his morning dose of Lovenox that he takes for his blood clot, so I have ordered this. On reevaluation, the patient feels significantly better with the headache resolved. No neurological deficits. Patient is comfortable going home for outpatient follow-up with neurology and provided with strict return precautions, especially for worsening headaches, neck pain/stiffness, fever or weakness, numbness/tingling or persistent vomiting. <Lizet Schultz MD - Last Filed: 04/20/25 13:05> Discharge Plan Discharge Clinical Impression: Headache <Lizet Schultz MD - Last Filed: 04/20/25 13:05> Patient Disposition: Home <Lizet Schultz MD - Last Filed: 04/20/25 13:05> Condition: Stable <Lizet Schultz MD - Last Filed: 04/20/25 13:05> Instructions: Acute Headache (ED), Tinnitus (ED) <Lizet Schultz MD - Last Filed: 04/20/25 13:05> Additional Instructions: Please follow up with your doctor; you can always return for any further issues. <Lizet Schultz MD - Last Filed: 04/20/25 13:05> Patient Language: Macedonian <Lizet Schultz MD - Last Filed: 04/20/25 13:05> Prescriptions: New metoclopramide HCl [Reglan] 10 mg tablet 10 mg PO Q6H PRN (Reason: headache) Qty: 20 0RF No Action metoclopramide HCl [Reglan] 10 mg tablet 10 mg PO Q6H PRN (Reason: nausea and vomiting) Qty: 14 0RF lorazepam [Ativan] 0.5 mg tablet 0.5 mg PO BID PRN (Reason: anxiety) Qty: 14 0RF <Lizet Schultz MD - Last Filed: 04/20/25 13:05> Follow-up/Referrals: Benny Reed MD [Physician] - 1 Week PHYSICIAN,TRANSPORTATION SECURITY OFFICER [Primary Care Provider] - <Lizet Schultz MD - Last Filed: 04/20/25 13:05>
[2025-04-18 06:32] VITALS: BP 136/104; PULSE 96; RESP 11; O2SAT 97
[2025-04-18] MEDS: LACTATED RINGERS 1,000 ML 999 ML IV CONT (06:32)
[2025-04-18] MEDS: METOCLOPRAMIDE HCL INJ 10 MG/2 ML VIAL IV PUSH (06:32)
[2025-04-18] MEDS: LORazepam INJ (*CRX) 2 MG/ML VIAL 1 MG IV PUSH (06:33)
[2025-04-18] MEDS: ENOXAPARIN 100 MG/ML SYRINGE SUB-Q (06:51)
[2025-04-18] MEDS: Please enter patient height and weight for medication dosing 1 EACH XX (06:59)
[2025-04-18] MEDS: KETOROLAC 15 MG/ML VIAL (*BKC) 10 MG IV PUSH (07:03)
[2025-04-18 07:17] VITALS: BP 124/57; PULSE 85; RESP 15; O2SAT 96
== END 2025-04-18 08:10 | disposition home or self-care (01) ==
PROVIDERS: Emergency Provider Emergency Medicine
DX: R51.9 Headache, unspecified (principal)
CPT/HCPCS: 96361; 96372; 96374; 96375; 99284; J1200; J1650; J1885; J2060; J2765; J7120

== ENCOUNTER 2025-05-19 11:30 | Emergency (ER) | payer OTHER, SELFPAY ==
--- OUTSIDE RECORDS SUMMARY | 2023-06-17 04:45 | XMS_ITS | Continuity of Care Document ---
Author Organization [facility] Address [address] [place] [address] Phone Care Team Providers Care Supervisor [employer] Name Role Phone Nima Lake MD Unavailable Unavailable Advance Directives Directive Yes / No Effective Date File Name No Information Encounters Encounter Description Practice Location Reason(s) For Visit Diagnoses Date Provider Providers Copied on Encounter [facility], [address], [place], [place], [id number], [place] tel:[phone] [place] No Information Jaya Herring. [address], [address], [place], [place], [address], [place]. tel:[phone] Family History Family Member Type Diagnosis Age At Onset No Information Payers Payer name Insurance type Covered green party ID Authoriza tion(s) No Information Social History Type Description Quantity Date Captured Comments Sex Male Smoking Status No Information Chief Complaint And Reason For Visit No Information Reason For Referral Reason For Referral No Information History Of Present Illness Encounter Date Complaint History Of Prese nt Illness No Information Functional Status Date Functional Assessmen t No Information Instructions Date Instruction Additional Infor mation No Information Assessments Type Assessment Date No Information Patient Care Teams Name Effective Dates (start - stop) Status Members No Information
--- OUTSIDE RECORDS SUMMARY | 2023-06-17 04:45 | XMS_ITS | Continuity of Care Document ---
Author Organization [facility] Address [address] [place] [address] Phone Care Team Providers Care Manager Revenue Name Role Phone Nima Lake MD Unavailable Unavailable Advance Directives Directive Yes / No Effective Date File Name No Information Encounters Encounter Description Practice Location Reason(s) For Visit Diagnoses Date Provider Providers Copied on Encounter [facility], [address], [place], [place], [id number], [place] tel:[phone] [place] No Information Jaya Herring. [address], [address], [place], [place], [address], [place]. tel:[phone] Family History Family Member Type Diagnosis Age At Onset No Information Payers Payer name Insurance type Covered republican ID Authoriza tion(s) No Information Social History [...]
--- OUTSIDE RECORDS SUMMARY | 2024-03-22 09:00 | XMS_ITS | Continuity of Care Document ---
Author Organization [facility] Address [address] [place] [address] Phone Care Team Providers Care Agriculture Specialist Name Role Phone Shasta Hernandez MD, Glynn Ortega Unavailab le Allergies, Adverse Reactions, Alerts Substance Reaction Status Criticality Penicillins Active No Information Medications Medication Instructions Dosage Effective Dates (start - stop) Status Comments losartan 50 mg tablet take 1 tablet by o ral route every day 50 MG - Active paroxetine 30 mg tablet take 1 tablet by oral route every day 30 MG - Active Procedures Procedure Date Triamcinolone acet inj NOS Drugs unclassified injection DRAIN/INJECT JOINT/BURSA OFFICE/OUTPATIENT VISIT EST Triamcinolone acet inj NOS Drugs unclassified injection DRAIN/INJECT JOINT/BURSA OFFICE/OUTPATIENT VISIT EST OFFICE/OUTPATIENT VISIT EST Triamcinolone acet inj NOS Drugs unclassified injection DRAIN/INJECT JOINT/BURSA OFFICE/OUTPATIENT VISIT NEW Advance Directives Directive Yes / No Effective Date File Name No Information Encounters Encounter Description Practice Location Reason(s) For Visit Diagnoses Date Provider Providers Copied on Encounter OFFICE/OUTPA TIENT VISIT EST [facility], [address], [place], [address], [place] tel:[phone] [facility] Primary osteoarthritis of right knee Shasta Maki. [address], [place], [address], [place]. tel:[phone] Referring Provider: Ignacio Del Rio, RETIRED [address], [place], [address]. tel:[phone] OFFICE/OUTPA TIENT VISIT EST [facility], [address], [place], [address], [place] tel:[phone] [facility] Primary osteoarthritis of right knee Apr-0 2- 4 Shasta Glynn. [address], [place], [address], [place]. tel:[phone] Referring Provider: Ignacio Del Rio, RETIRED [address], [place], [address]. tel:[phone] OFFICE/OUTPA TIENT VISIT EST [facility], [address], [place], [address], [place] tel:[phone] [facility] Primary osteoarthritis of right knee Nov-0 4 Shasta Maki. [address], [place], [address], [place]. tel:[phone] Referring Provider: Ignacio Del Rio, RETIRED [address], [place], [address]. tel:[phone] OFFICE/OUTPA TIENT VISIT NEW [facility], [address], [place], [address], [place] tel:[phone] [facility] Primary osteoarthritis of right knee 2 4 Shasat Maki. [address], [place], [address], [place]. tel:[phone] Referring Provider: Ignacio Del Rio, RETIRED [address], [place], [address]. tel:[phone] Family History Family Member Type Diagnosis Age At Onset Father Problem Heart disease Mother Problem heart disease Father Problem Alive and well Payers Payer name Insurance type Covered alliance party ID Authorchalo rojas(s) Mary Kayna Open Access Plus E2 OT [id number] Social History Type Description Quantity Date Captured Comments Alcohol Use Details Unknown Caffeine Use Details Unknown Tobacco Use Status Heavy cigarette smok er (20-39 cigs/day) Smoking Status Heavy tobacco smoker Smoking Tobacco Use Details Cigarette: Years Used 15 Cigarette: 1 Packs per day, Pack Year: 15 Sex Male Chief Complaint And Reason For Visit No Information Reason For Referral Reason For Referral No Information Plan Of Treatment Date Type Action Status Goal Tobacco cessation counseling completed Goal Tobacco cessation counseling completed History Of Present Illness Encounter Date Complaint History Of Prese nt Illness No Information Functional Status Date Functional Assessmen t No Information Instructions Date Instruction Additional Infor mation No Information Assessments Type Assessment Date assessment Primary osteoarthritis of right knee Patient Care Teams Name Effective Dates (start - stop) Status Members No Information
--- OUTSIDE RECORDS SUMMARY | 2025-05-19 11:33 | XMS_ITS | Clinical Summary ---
Author Organization [facility] Address [address] [place] [address] Care Team Providers Care Workforce Advisor Name Role Phone Doris Chi MD Primary Care Provider [phone] Source Comments [facility],non-owned Affiliates and Associated Physician Practices is amultiple site organization consisting of ambulatory clinics and hospital sitesin [place], [place], [place] and [place]. This disclosure is being madepursuant to the Care Everywhere program and may not contain all information available regarding this patient. Last updated 18.[facility] [employer] Allergies Active Allergy Reactions Criticality Noted Date Comments Penicillins Urticaria High 03/29/2020 Medications * Be aware that medications may not be up to date on this document. Alwaysverify current medications with the patient. atorvastatin (Lipitor) 10 MG tablet Take 1 (one) tablet by mouth once daily 024 Active hydrOXYzine HCl (Atarax) 25 MG tablet Take 1 (one) tablet by mouth 4 times daily as needed for Itching Active LORazepam (Ativan) 1 MG tablet Take 1 (one) tablet by mouth every 4 hours as needed for Anxiety Active apixaban (Eliquis) 5 MG tabletIndicat ions:Pulmonar y Embolism Take 1 (one) tablet by mouth 2 times daily Reasons: Blockage of Blood Vessel to Lung by a Particle 60 tablet 025 Active folic acid (Folvite) 1 MG tablet Take 1 (one) tablet by mouth once daily 30 tablet 025 Active thiamine (Vitamin B-1) 100 MG tablet Take 1 (one) tablet by mouth once daily 30 tablet Active mirtazapine, disintegratin g, (Remereon Soltab) 45 MG tablet Take 1 (one) tablet by mouth at bedtime Active metoprolol succinate XL 24hr (Toprol XL) 50 MG tablet Take 1 (one) tablet by mouth 2 times daily Active Ginkgo Biloba Extract (GNP Gingko Biloba Extract) 60 MGIndications :Tinnitus Take 60 mg by mouth 2 times daily for 30 days Reasons: Ringing in the Ear 60 capsule 2024 Active multiple vitamins with minerals tablet Take 1 (one) tablet by mouth once daily 30 tablet Active losartan (Cozaar) 50 MG tablet Take 1 (one) tablet by mouth once daily 2024 Discontinued(L ist Clean-Up) gabapentin (Neurontin) 300 MG capsule Take 1 (one) capsule by mouth as needed 2024 Discontinued(L ist Clean-Up) PARoxetine (Paxil) 30 MG tablet Take 0.5 (one-half) tablet by mouth once daily 2024 Discontinued(L ist Clean-Up) busPIRone (Buspar) 5 MG tablet Take 1 (one) tablet by mouth 2 times daily 2024 Discontinued(L ist Clean-Up) mirtazapine (Remeron) 30 MG tablet Take 1 (one) tablet by mouth at bedtime 30 tablet 2024 Discontinued metoprolol tartrate IR (Lopressor) 25 MG tablet Take 1 (one) tablet by mouth 2 times daily 60 tablet 2024 Discontinued(L ist Clean-Up) LORazepam (Ativan) 1 MG tablet Take 1 (one) tablet by mouth every 12 hours as needed for Anxiety 6 tablet 2024 Discontinued(L ist Clean-Up) oxymetazoline (Afrin) 0.05 % nasal spray Hooks 1 (one) spray into each nostril 2 times daily Please use for not longer than a week 37 mL 2024 Discontinued(L ist Clean-Up) fluticasone propionate (Flonase) 50 MCG/ACT nasal spray Hooks 2 (two) sprays into each nostril once daily 1 Each 025 2024 Discontinued(L ist Clean-Up) loratadine (Claritin) 10 MG tablet Take 1 (one) tablet by mouth once daily 30 tablet 025 2024 Discontinued(L ist Clean-Up) Apixaban Starter Pack 5 MG TBPK Take 1 Each by mouth as directed 025 2024 Discontinued(D ose Adjustment) enoxaparin (Lovenox) 100 MG/ML injection Inject 1 mL subcutaneously every 12 hours 025 2024 Discontinued(T x Complete) Betahistine HCl 12 mg cap once daily x 1 week, 12 mg cap BID x 1 week, then 12 mg cap TID 5 g 2 025 2024 Discontinued(L ist Clean-Up) Active Problems Problem Noted Date Diagnosed Date Pulmonary embolism 05/03/2025 Assessment & Plan (05/03/2025 4:13 PM CDT): - CTPE on 04/[address] [facility] showed segmental and subsegmental PE in the RLL PLAN: > continue eliquis 5 mg BID Assessment & Plan (05/03/2025 3:52 PM CDT): - CTPE on 04/[address] [facility] showed segmental and subsegmental PE in the RLL PLAN: > continue eliquis 5 mg BID > confirm affordability of medication for patient--seems that he was briefly switched to warfarin Diarrhea, unspecified type 05/02/2025 Lactic acidosis 05/02/2025 Assessment & Plan (05/03/2025 4:13 PM CDT): - 3.8 --> 3 --> 2.2 - likely 2/2 to wretching/numerous emetic episodes and dehydration Assessment & Plan (05/03/2025 8:59 AM CDT): - 3.8 --> 3 --> 2.2 - likely 2/2 to wretching/numerous emetic episodes Syncope, unspecified syncope type 05/02/2025 Assessment & Plan (05/03/2025 4:13 PM CDT): - ETOH 223 - last drink on 05/02, 1 bottle of merlot. Reports previous sobriety for 163 days - report of syncope, patient denies - Low CIWA scores, low concern for withdrawal PLAN: > start thiamine 100 mg qd > start folic acid 1 mg qd > start multivitamin > encouraged cessation, to follow up with PCP > referral to psychiatry for aid in cessation Altered mental status, unspe cified altered mental status type 05/02/2025 Weakness 05/02/2025 History of tinnitus 05/02/2025 Assessment & Plan (05/03/2025 4:13 PM CDT): - numerous visits to ED over the past several months for bilateral tinnitus. Has seen ENT and had MRI performed that have been unrevealing - recently seen in ED in [facility] for bilateral tinnitus on 04/30, foreign body removed from ear right ear and found to have acute otitis externa, given ketoralac and dex - received dexamethasone - ENT consulted, appreciate recs - Anxious on exam, on home mirtazapine and lorazepam QID PRN PLAN: > F/u with ENT as outpatient, has appointment scheduled for June > recommending gingko biloba supplementation > Continue alcohol cessation > referral to psychiatry for CBT and for recommendations with tinnitus management Assessment & Plan (05/03/2025 8:59 AM CDT): - numerous visits to ED over the past several months for bilateral tinnitus. Has seen ENT and had MRI performed that have been unrevealing - recently seen in ED in [facility] for bilateral tinnitus on 04/30, foreign body removed from ear right ear and found to have acute otitis externa, given ketoralac and dex - received dexamethasone PLAN: > topical antibiotics and corticosteroids for management of acute otitis externa > consider NSAIDs for further anti-inflammatory control with adjunctive pepcid for GI ppx Acute alcoholic intoxication with complication 0 05/02/2025 Assessment & Plan (05/03/2025 4:13 PM CDT): - ETOH 223 - last drink on 05/02, 1 bottle of merlot. Reports previous sobriety for 163 days - report of syncope, patient denies - Low CIWA scores, low concern for withdrawal PLAN: > start thiamine 100 mg qd > start folic acid 1 mg qd > start multivitamin > encouraged cessation, to follow up with PCP > referral to psychiatry for aid in cessation Assessment & Plan (05/03/2025 8:59 AM CDT): - ETOH 223 - last drink on 05/02, 1 bottle of merlot. Reports previous sobriety for 163 days PLAN: > CIWA > start thiamine 100 mg qd > start folic acid 1 mg qd > start multivitamin Sinus tachycardia 09/23/2024 SVT (supraventricular tachycardia) 09/23/2024 Tinnitus of both ears 09/23/2024 JANELL (generalized anxiety disorder) 06/23/2024 Assessment & Plan (05/03/2025 4:13 PM CDT): - numerous visits to ED over the past several months for bilateral tinnitus. Has seen ENT and had MRI performed that have been unrevealing - recently seen in ED in [facility] for bilateral tinnitus on 04/30, foreign body removed from ear right ear and found to have acute otitis externa, given ketoralac and dex - received dexamethasone - ENT consulted, appreciate recs - Anxious on exam, on home mirtazapine and lorazepam QID PRN PLAN: > F/u with ENT as outpatient, has appointment scheduled for June > recommending gingko biloba supplementation > Continue alcohol cessation > referral to psychiatry for CBT and for recommendations with tinnitus management Alcohol use disorder, mild, in early remission 1 Insomnia 06/23/2024 MDD (major depressive disorder) 06/23/2024 Mixed hyperlipidemia 06/23/2024 Smoker 06/23/2024 Cluster headaches 06/23/2024 Encounters Date Type Department Care Team Description 05/02/2025 5:11 PM CDT - 05/03/2025 3:45 PM CDT Hospital Encounter [facility] [address] ACUTE [address] [place] [address] Albert Turner MD Thompson, Keniesha O, MD Mayer, Pj C, DO Internal Medicine Discharge Disposition: Home or Self Care 05/02/2025 Travel 04/17/2025 11:30 AM CDT Office Visit [facility] - ENT [address] [place] [address] Pj Jeffers MD Tinnitus of [...] oz pur e alcohol) 56 days sober Overall Financial Resource Strain (CARDIA) Answe r Date Recorded How hard is it for you to pa y for the very basics like food, housing, medical care, and heating? Not hard at all 05/03/2025 [facility] - Occupational Stress Questionnaire Answer Date Recorded Do you feel stress - tense, restless, nervous, or anxious, or unable to sleep at night because your mind is troubled all the time - these days? Not at all 05/03/2025 Hunger Vital Sign Answer Date Recorded Within the past 12 months, y ou worried that your food would run out before you got the money to buy more. Never true 05/03/20 25 Within the past 12 months, t he food you bought just didn't last and you didn't have money to get more. Never true 05/03/2025 PRAPARE - Transportation Answer Date Re corded In the past 12 months, has l ack of transportation kept you from medical appointments or from getting medications? No 04/21 In the past 12 months, has l ack of transportation kept you from meetings, work, or from getting things needed for daily living? No 05/03/2025 Housing Stability Vital Sign Answer Efrain e Recorded In the last 12 months, was t here a time when you were not able to pay the mortgage or rent on time? No 05/03/2025 In the past 12 months, how m any times have you moved where you were living? 0 05/03/2025 At any time in the past 12 m [facility], were you homeless or living in a skilled nursing (including now)? No 05/03/2025 Sex and Gender Information Value Date Recorded Sex Assigned at Not on file Legal Sex Male 6:23 AM [employer] Gender Identity Not on file Sexual Orientation Not on file Last Filed Vital Signs Vital Sign Reading Time Taken Comments Blood Pressure 142/91 05/03/2025 12:45 PM CDT Pulse 90 05/03/2025 12:45 PM CDT Temperature 36.7 C (98 F) 05/03/2025 12:45 PM CDT Respiratory Rate 20 05/03/2025 12:45 PM CDT Oxygen Saturation 100% 05/03/2025 12:45 PM CDT Inhaled Oxygen Concentration - - Weight 102.1 kg (225 lb) 05/02/2025 5:02 PM CDT Height 185.4 cm (6' 1) 05/02/2025 5:02 PM CDT Body Mass Index 29.69 05/02/2025 5:02 PM CDT Plan of Treatment Upcoming Encounters Date Type Department Care Team (Late st Contact Info) Description 07/20/2025 12:45 PM CDT Office Visit [facility] - ENT [address] [place] [address] Pj Jeffers MD [address] [place] [address] Health Maintenance Due Date Last Done Comments [...] INFLUENZA VACCINE (#1) 2025 SCREENING FOR DIABETES 05/03/2028 , 05/02/2025, 01/14/2025, Additional history exists COVID-19 VACCINE Completed 06/05/2024, [...] Procedure Name Priority Date/Time Associated Diagnosis Comments EKG 12-LEAD STAT 05/03/2025 12:39 PM CDT Alcohol use disorder, mild, in early remission JANELL (generalized anxiety disorder) SVT (supraventricular tachycardia) (HCC) VITAMIN B12 Routine 05/03/2025 11:53 AM CDT Tinnitus of both ears PT EVAL AND TREAT Routine 05/03/2025 8:5 4 AM CDT OT EVAL AND TREAT Routine 05/03/2025 8:5 4 AM CDT CBC W AUTO DIFFERENTIAL Timed 05/03/2025 5:43 AM CDT Acute alcoholic intoxication with complication COMPREHENSIVE METABOLIC PANEL Timed 05/03/2025 5:43 AM CDT Acute alcoholic intoxication with complication LACTIC ACID BLOOD STAT 05/03/2025 5:1 2 AM CDT Lactic acidosis LACTIC ACID BLOOD REFLEX TO REPEAT Timed STAT 05/02/2025 11:57 PM CDT LACTIC ACID BLOOD REFLEX TO REPEAT Timed STAT 05/02/2025 8:[address] CERVICAL SPINE WO CONTRAST STAT 05/02/2025 8:01 PM CDT Altered mental status, unspecified altered mental status type Diarrhea, unspecified type Weakness CT HEAD WO CONTRAST STAT 05/02/2025 8 :01 PM CDT Altered mental status, unspecified altered mental status type Diarrhea, unspecified type Weakness CT CHEST PE W ABD PELVIS W CONT STAT 05/02/2025 8:01 PM CDT Altered mental status, unspecified altered mental status type Diarrhea, unspecified type Weakness XR CHEST 1VW STAT 05/02/2025 6:43 PM CDT Altered mental status, unspecified altered mental status type Diarrhea, unspecified type Weakness BLOOD TYPE VERIFICATION STAT 05/02/2025 6:30 PM CDT TROPONIN-I HIGH SENSITIVE REFLEX 1HOUR Timed 05/02/2025 6:27 PM CDT BLOOD GASES SALLY + COOX PANEL STAT 05/02/2025 6:27 PM CDT TYPE + SCREEN PANEL STAT 05/02/2025 5 :48 PM CDT CULTURE BLOOD Timed 05/02/2025 5:45 PM CDT AMMONIA Timed 05/02/2025 5:30 PM CDT B-TYPE NATRIURETIC PEPTIDE STAT 05/02/2025 5:30 PM CDT MAGNESIUM BLOOD STAT 05/02/2025 5:30 PM CDT PHOSPHORUS BLOOD STAT 05/02/2025 5:30 PM CDT ALCOHOL ETHYL BLOOD STAT 05/02/2025 5 :30 PM CDT PROCALCITONIN LEVEL STAT 05/02/2025 5 :30 PM CDT PT-INR STAT 05/02/2025 5:30 PM CDT CBC W AUTO DIFFERENTIAL STAT 05/02/2025 5:30 PM CDT LIPASE BLOOD STAT 05/02/2025 5:30 PM CDT CK BLOOD STAT 05/02/2025 5:30 PM CDT COMPREHENSIVE METABOLIC PANEL STAT 05/02/2025 5:30 PM CDT TROPONIN-I HIGH SENSITIVE BASELINE + 1HR STAT 05/02/2025 5:30 PM CDT LACTIC ACID BLOOD REFLEX TO REPEAT STAT 05/02/2025 5:30 PM CDT CULTURE BLOOD Timed 05/02/2025 5:30 PM CDT from Last 3 Months Results * EKG 12-Lead (05/03/2025 12:39 PM CDT) Ventricular Rate 87 BPM [facility] Atrial Rate 87 BPM [facility] P-R Interval 144 ms [facility] QRS Duration ms 90 ms [facility] Q-T Interval ms 356 ms [facility] QTC Calculation (Bezet) 428 ms [facility] MUSE Calculated P Rangely 60 degrees [facility] MUSE Calculated R Rangely 6 degrees [facility] MUSE Calculated T Rangely 41 degrees [facility] MUSE Interpretation EKG NORMAL SINUS RHYTHM EARLY TRANSITION, INCREASED R/S RATIO IN V1, CONSIDER POSTERIOR INFARCT ABNORMAL ECG WHEN COMPARED WITH ECG OF 22-NOV-2024 15:36, NO SIGNIFICANT CHANGE WAS FOUND Confirmed by SALBADOR BILL MD ([id number]) on 05/07/2025 11:49:03 AM [facility] MUSE 05/03/2025 12:3 9 PM CDT 05/07/2025 11:49 AM CDT Pj Dawkins DO ECG ORDERABLES Edited Result - Final Performing Organization Address City/[facility]/ZIP Co de Phone Number [facility] MUSE * VITAMIN B12 (05/03/2025 11:53 AM CDT) Pathologist [facility] Vitamin B12 508 213 - 816 pg/mL 05/03/2025 1:04 PM CDT [facility] Blood BLOOD SPECIMEN / Unknown Lab Venipuncture / Unknown 05/03/2025 11:53 AM CDT 05/03/2025 12:11 PM CDT Pj Dawkins DO LAB - CHEMISTRY ORDERABLES Fin al Result Performing Organization Address City/[facility]/ZIP Co de Phone Number [facility] [address] [place] [address], [facility] [phone] * (ABNORMAL) CBC W AUTO DIFFERENTIAL (05/03/2025 5:43 AM CDT) Only the most recent of2 resultswithin the time period is included. [facility] WBC 8.9 4.0 - 10.7 x10E9/L 05/03/2025 6:56 AM [facility] RBC Count 4.79 4.30 - 5.80 x10E12/L 05/03/2025 6:56 AM [facility] Hemoglobin 14.5 13.3 - 17.5 g/dL 05/03/2025 6:56 AM [facility] Hematocrit 41.9 38.7 - 51.1 % 05/03/2025 6:56 AM [facility] MCV 87.5 80.0 - 98.0 fL 05/03/2025 6:56 AM [facility] MCH 30.3 26.7 - 33.6 pg 05/03/2025 6:56 AM T [facility] MCHC 34.6 31.7 - 36.3 g/dL 05/03/2025 6:56 AM [facility] RDW-CV 13.0 11.3 - 14.8 % 05/03/2025 6:56 AM [facility] Platelet Count 213 150 - 420 x10E9/L 05/03/2025 6:56 AM [facility] MPV 9.2 7.8 - 11.4 fL 05/03/2025 6:56 AM [facility] Neutrophil % 78.8(H) 41.0 - 74.0 % 05/03/2025 6:56 AM [facility] Lymphocyte % 18.1 17.0 - 47.0 % 05/03/2025 6:56 AM [facility] Monocyte % 1.9(L) 3.0 - 11.0 % 05/03/2025 6:56 AM [facility] Eosinophil % 0.0 0.0 - 7.0 % 05/03/2025 6:56 AM [facility] Basophil % 0.4 0.0 - 1.6 % 05/03/2025 6:56 AM [facility] Immature Granulocytes % 0.8 0.0 - 1.0 % 05/03/2025 6:56 AM [facility] Neutrophil Absolute 7.00 1.60 - 7.50 x10E9/L 05/03/2025 6:56 AM [facility] Lymphocyte Absolute 1.61 1.00 - 4.40 x10E9/L 05/03/2025 6:56 AM [facility] Monocyte Absolute 0.17 0.15 - 1.00 x10E9/L 05/03/2025 6:56 AM [facility] Eosinophil Absolute 0.00 0.00 - 0.60 x10E9/L 05/03/2025 6:56 AM [facility] Basophil Absolute 0.04 0.00 - 0.13 x10E9/L 05/03/2025 6:56 AM [facility] Blood BLOOD SPECIMEN / Unknown Lab Venipuncture / Unknown 05/03/2025 5:43 AM CDT 05/03/2025 6:09 AM CDT us Alka Kennedy MD LAB - HEMATOLOGY ORDERABL ES Final Result [facility] [address] [place] [address], [facility] [phone] * (ABNORMAL) COMPREHENSIVE METABOLIC PANEL (05/03/2025 5:43 AM CDT) Only the most recent of2 resultswithin the time period is included. BUN 8 7 - 26 mg/dL 05/03/2025 6:55 AM [facility] Creatinine 0.76 0.71 - 1.16 mg/dL 05/03/2025 6:55 AM [facility] Sodium 141 136 - 145 mmol/L 05/03/2025 6:55 AM [facility] Potassium 4.3 3.5 - 4.5 mmol/L 05/03/2025 6:55 AM [facility] Chloride 116(H) 98 - 107 mmol/L 05/03/2025 6:55 AM [facility] CO2 17(L) 22 - 29 mmol/L 05/03/2025 6:55 AM [facility] Glucose 118(H) 70 - 99 mg/dL 05/03/2025 6:55 AM [facility] Calcium 8.9 8.4 - 10.2 mg/dL 05/03/2025 6:55 AM [facility] Protein Total 6.7 6.0 - 8.3 g/dL 05/03/2025 6:55 AM [facility] Albumin 4.1 3.4 - 5.0 g/dL 05/03/2025 6:55 AM [facility] Bilirubin Total 0.3 0.2 - 1.2 mg/dL 05/03/2025 6:55 AM [facility] Alkaline Phosphatase 45 40 - 150 U/L 05/03/2025 6:55 AM [facility] ALT 29 5 - 55 U/L 05/03/2025 6:55 AM [facility] AST 12 5 - 34 U/L 05/03/2025 6:55 AM CDT [facility] Anion Gap 8 6 - 16 05/03/2025 6:55 AM T [facility] BUN/Creatinine Ratio 11 7 - 23 05/03/2025 6:55 AM T [facility] Osmolality Calculated 291 275 - 295 mOsm/kg 05/03/2025 6:55 AM T [facility] Albumin/Globulin Ratio 1.6 1.1 - 2.3 05/03/2025 6:55 AM [facility] eGFR by CKD-EPI >90 >=90 mL/min/1.7 3 m2 05/03/2025 6:55 AM [facility] Comment:Estimated Glomerular Filtration Rate (eGFR) calculated using the CKD-EPI Creatinine Equation (2020), per the National Kidney Foundation and [place] [employer] Neph[employer] recommendations. Blood BLOOD SPECIMEN / Unknown Lab Venipuncture / Unknown 05/03/2025 5:43 AM CDT 05/03/2025 6:10 AM CDT us Alka Kennedy MD LAB - CHEMISTRY ORDERABLE S Final Result [address] [address], [facility] [phone] * (ABNORMAL) LACTIC ACID BLOOD (05/03/2025 5:12 AM CDT) Lactic Acid-Stat 2.2(H) <=2.0 mmol/L 05/03/2025 6:49 AM CDT [facility] Blood BLOOD SPECIMEN / Unknown Lab Venipuncture / Unknown 05/03/2025 5:12 AM CDT 05/03/2025 6:10 AM CDT us Alka Kennedy MD LAB - CHEMISTRY ORDERABLE S Final Result [address] [address], [place] [phone] * (ABNORMAL) LACTIC ACID BLOOD REFLEX TO REPEAT (05/02/2025 11:57 PM CDT) Only the most recent of3 resultswithin the time period is included. Lactic Acid-Stat 3.0(H) <=2.0 mmol/L 05/03/2025 12:28 AM CDT [facility] Blood BLOOD SPECIMEN / Unknown Venipuncture / Unknown 05/02/2025 11:57 PM CDT 05/03/2025 12:05 AM CDT Albert Turner MD LAB - CHEMISTRY ORDERABLES Final Result [facility] [address] [place] [address], [facility] [phone] * CT Chest Pe W Abd Pelvis W Cont (05/02/2025 8:01 PM CDT) Anatomical Region Laterality Modality Chest, Abdomen, Pelvis Computed Tomography 05/02/2025 7:55 PM CDT Impressions 05/02/2025 9:12 PM CDT Impression: 1.Central filling defects within the segmental and subsegmental branches within the right lower lobe pulmonary artery compatible with segmental pulmonary artery embolism. No findings to suggest right heart strain. 2.No acute process identified in the abdomen or pelvis. 3.Mild thickening of the distal esophagus may relate to reflux esophagitis. > Dictated by Tal Yao MD (vice president risk management). Critical findings were discussed in detail with the patient's care provider, Dr. Turner by Dr. Yao via telephone at 8:15 PM on 05/02/2025 with readback comprehension and verification. > Dictated by Manager Cleaning I, Cleopatra Dias MD have personally reviewed and interpreted this examination/study. > Interpreting Provider: Cleopatra Dias MD on 05/02/2025 9:12 PM Narrative 05/02/2025 9:12 PM CDT PROCEDURE: TEMPORARY, DATE/TIME OF EXAM: 05/02/2025 7:55 PM, LOCATION [facility] INDICATION: R41.82: Altered mental status, unspecified altered mental status type R19.7: Diarrhea, unspecified type R53.1: Weakness ADDITIONAL CLINICAL INFORMATION: Ordering Provider Reason For Exam: Known PE, Syncope Technologist Note: None Additional: None COMPARISON: None. TECHNIQUE: CT of the chest was performed following the uneventful administration of 75 mL of Isovue 370 intravenous contrast according to a pulmonary embolism protocol. CT of the abdomen and pelvis was also performed during the portal venous phase according to standard protocol. Multiplanar reconstructions were created. Findings: Chest: Study Quality This examination for the diagnosis of pulmonary embolism is adequate. Pulmonary Arteries: There are central filling defects within the segmental and subsegmental branches of the right lower lobe pulmonary artery (Series 5, Image 150), there is minimal proximal extension into the distal right interlobar artery compatible with pulmonary embolism. Thoracic Vasculature: No vascular abnormality is present. Lower Neck and Axillae: Normal. Lungs: Mild bilateral dependent atelectasis is present. No suspicious pulmonary nodules are identified. No pleural fluid or pneumothorax is present. Heart and Pericardium: The cardiac chambers are normal in size. No pericardial fluid or thickening is present. The coronary arteries are atherosclerotic. No right ventricular dilation nor contrast reflux to suggest right heart strain. Mediastinum and Farnaz: No enlarged lymph nodes are present. Other findings: None. Abdomen/pelvis: Liver: Normal. Gallbladder and Bile Ducts: Normal. Spleen: Normal. Pancreas: Normal. Adrenals: Normal. Kidneys: The bilateral ureters are prominent but not dilated, possibly related to the distended bladder. The kidneys enhance symmetrically bilaterally, no hydronephrosis or nephrolithiasis. Gastrointestinal: Mild circumferential thickening of the distal esophagus which may relate to be reflux esophagitis (Series 6, Image 19). The stomach is mildly distended with gastric contents. The visualized loops of large and small bowel are unremarkable. Normal appendix. Mesentery/Peritoneum/Retroperitoneum: No free intraperitoneal air. No free fluid in the abdomen or pelvis. Bladder: Distended, otherwise normal. Reproductive Organs: The prostate is normal. Abdominal Vasculature: Atherosclerotic calcification of the aorta and its branch vessels. Bones: Bone windows demonstrate no suspicious lytic or blastic lesions. The visible osseous structures are intact. Degenerative changes are seen in the spine. Soft tissues: Small nodular density in the fat of the right abdomen is likely a small granuloma. Small bilateral fat-containing inguinal hernias. Procedure Note Cleopatra Dias MD - 05/02/2025 PROCEDURE: TEMPORARY, DATE/TIME OF EXAM: 05/02/2025 7:55 PM, [facility] INDICATION: R41.82: Altered mental status, unspecified altered mental status type R19.7: Diarrhea, unspecified type R53.1: Weakness ADDITIONAL CLINICAL INFORMATION: Ordering Provider Reason For Exam: Known PE, Syncope Technologist Note: None Additional: None COMPARISON: None. TECHNIQUE: CT of the chest was performed following the uneventful administration of 75 mL of Isovue 370 intravenous contrast according toa pulmonary embolism protocol. CT of the abdomen and pelvis was also performed during the portal venous phase according to standard protocol. Multiplanar reconstructions were created. Findings: Chest: Study Quality This examination for the diagnosis of pulmonary embolism is adequate. Pulmonary Arteries: There are central filling defects within the segmental and subsegmental branches of the right lower lobe pulmonary artery (Series 5, Image 150), there is minimal proximal extension into the distal right interlobarartery compatible with pulmonary embolism. Thoracic Vasculature: No vascular abnormality is present. Lower Neck and Axillae: Normal. Lungs: Mild bilateral dependent atelectasis is present. No suspicious pulmonary nodules are identified. No pleural fluid or pneumothorax is present. Heart and Pericardium: The cardiac chambers are normal in size. No pericardial fluid orthickening is present. The coronary arteries are atherosclerotic. No rightventricular dilation nor contrast reflux to suggest right heart strain. Mediastinum and Farnaz: No enlarged lymph nodes are present. Other findings: None. Abdomen/pelvis: Liver: Normal. Gallbladder and Bile Ducts: Normal. Spleen: Normal. Pancreas: Normal. Adrenals: Normal. Kidneys: The bilateral ureters are prominent but not dilated, possibly related to the distended bladder. The kidneys enhance symmetrically bilaterally, no hydronephrosis or nephrolithiasis. Gastrointestinal: Mild circumferential thickening of the distal esophagus which may relateto be reflux esophagitis (Series 6, Image 19). The stomach is mildlydistended with gastric contents. The visualized loops of large and small bowel are unremarkable. Normal appendix. Mesentery/Peritoneum/Retroperitoneum: No free intraperitoneal air. No free fluid in the abdomen or pelvis. Bladder: Distended, otherwise normal. Reproductive Organs: The prostate is normal. Abdominal Vasculature: Atherosclerotic calcification of the aorta and its branch vessels. Bones: Bone windows demonstrate no suspicious lytic or blastic lesions. The visible osseous structures are intact. Degenerative changes are seen inthe spine. Soft tissues: Small nodular density in the fat of the right abdomen is likely a small granuloma. Small bilateral fat-containing inguinal hernias. Impression: 1.Central filling defects within the segmental and subsegmental branches within the right lower lobe pulmonary artery compatible with segmental pulmonary artery embolism. No findings to suggest right heart strain. 2.No acute process identified in the abdomen or pelvis. 3.Mild thickening of the distal esophagus may relate to refluxesophagitis. > Dictated by Tal Yao MD (vice president risk management). Critical findings were discussed in detail with the patient's care provider, Dr. Turner by Dr. Yao via telephone at 8:15 PM on 05/02/2025with readback comprehension and verification. > Dictated by Manager Cleaning I, Cleopatra Dias MD have personally reviewed and interpreted this examination/study. > Interpreting Provider: Cleopatra Dias MD on 05/02/2025 9:12 PM us Albert Turner MD CT ORDERABLES Final Result * CT Cervical Spine Wo Contrast (05/02/2025 8:01 PM CDT) Anatomical Region Laterality Modality Spine Computed Tomogra phy 05/02/2025 8:20 PM CDT Impressions 05/02/2025 9:05 PM CDT IMPRESSION: 1.No acute intracranial hemorrhage, midline shift, or significant mass effect. 2.No evidence of acute fracture in the cervical spine. > Interpreting Provider: Alexander Rivera MD on 05/02/2025 9:05 PM Narrative 05/02/2025 9:05 PM CDT PROCEDURE: CT HEAD WO CONTRAST, CT CERVICAL SPINE WO CONTRAST, DATE/TIME OF EXAM: 05/02/2025 8:04 PM, LOCATION [facility] INDICATION: R41.82: Altered mental status, unspecified altered mental status type R19.7: Diarrhea, unspecified type R53.1: Weakness EXAMINATION: 1.Computed tomography (CT) of the head without contrast 2.CT of the cervical spine without contrast ADDITIONAL CLINICAL INFORMATION: Ordering Provider Reason For Exam: Syncope (accession [id number]), Sycnope (accession [id number]) Technologist Note: None. Additional: None. TECHNIQUE: CT of the head and cervical spine was performed without contrast according to standard protocol. CT dose reduction technique was used, including Automated Exposure Control. COMPARISON: CT of the head from 01/14/2025. FINDINGS: Head: No acute intra- or extra-axial fluid collections are identified. There is mild cerebral volume loss with associated ex vacuo ventricular dilatation. The basilar cisterns are patent. No mass effect or midline shift is seen. The wakefield-white matter differentiation is normal. Periventricular white matter hypoattenuation is indicative of chronic small vessel ischemic disease. There is vascular calcification of the carotid siphons. No acute calvarial fracture is identified. The orbits appear normal. There is mild paranasal sinus disease. The mastoid air cells are clear. There is a 3.0 x 1.5 cm right temporoparietal scalp lipoma. Cervical spine: Examined is mildly deviated to motion artifacts and quantum mottle artifacts. Relative straightening of the cervical lordosis. Minimal anterolisthesis of C4 on C5. Minimal retrolisthesis of C5 on C6. The bones are diffusely osteopenic. Vertebral bodies are normal in height without evidence of acute fracture. Other than advanced middle atlantoaxial joint osteoarthritis, the craniocervical junction appears normal. There is mild degenerative disc disease, worse at C5-C6. Mild central canal stenosis is seen at C5-C6. There are varying degrees of mild facet osteoarthritis. There are varying degrees of mild uncovertebral joint osteoarthritis with the same degree of neural foraminal stenosis at these levels. There is scarring in the lung apices. There is atherosclerotic calcification of the carotid bifurcations. Brain injury guidelines: Skull fracture: No Subdural hematoma: No subdural hematoma. Epidural hematoma: No epidural hematoma. Intraparenchymal hemorrhage: No intraparenchymal hemorrhage. Subarachnoid hemorrhage: No subarachnoid hemorrhage. Intraventricular hemorrhage: No. Midline shift: No. Procedure Note Alexander Rivera MD - 05/02/2025 PROCEDURE: CT HEAD WO CONTRAST, CT CERVICAL SPINE WO CONTRAST,DATE/TIME OF EXAM: 05/02/2025 8:04 PM, LOCATION [facility] INDICATION: R41.82: Altered mental status, unspecified altered mental status type R19.7: Diarrhea, unspecified type R53.1: Weakness EXAMINATION: 1.Computed tomography (CT) of the head without contrast 2.CT of the cervical spine without contrast ADDITIONAL CLINICAL INFORMATION: Ordering Provider Reason For Exam: Syncope (accession [id number]),Sycnope (accession [id number]) Technologist Note: None. Additional: None. TECHNIQUE: CT of the head and cervical spine was performed withoutcontrast according to standard protocol. CT dose reduction technique was used, including Automated Exposure Control. COMPARISON: CT of the head from 01/14/2025. FINDINGS: Head: No acute intra- or extra-axial fluid collections are identified. Thereis mild cerebral volume loss with associated ex vacuo ventriculardilatation. The basilar cisterns are patent. No mass effect or midline shift isseen. The wakefield-white matter differentiation is normal. Periventricular white matter hypoattenuation is indicative of chronic small vessel ischemic disease. There is vascular calcification of the carotid siphons. Noacute calvarial fracture is identified. The orbits appear normal. There ismild paranasal sinus disease. The mastoid air cells are clear. There is a 3.0x 1.5 cm right temporoparietal scalp lipoma. Cervical spine: Examined is mildly deviated to motion artifacts andquantum mottle artifacts. Relative straightening of the cervical lordosis. Minimal anterolisthesisof C4 on C5. Minimal retrolisthesis of C5 on C6. The bones are diffusely osteopenic. Vertebral bodies are normal in height without evidence ofacute fracture. Other than advanced middle atlantoaxial joint osteoarthritis,the craniocervical junction appears normal. There is mild degenerative disc disease, worse at C5-C6. Mild central canal stenosis is seen at C5-C6. There are varying degrees of mild facet osteoarthritis. There arevarying degrees of mild uncovertebral joint osteoarthritis with the same degreeof neural foraminal stenosis at these levels. There is scarring in the lung apices. There is atherosclerotic calcification of the carotidbifurcations. Brain injury guidelines: Skull fracture: No Subdural hematoma: No subdural hematoma. Epidural hematoma: No epidural hematoma. Intraparenchymal hemorrhage: No intraparenchymal hemorrhage. Subarachnoid hemorrhage: No subarachnoid hemorrhage. Intraventricular hemorrhage: No. Midline shift: No. IMPRESSION: 1.No acute intracranial hemorrhage, midline shift, or significant mass effect. 2.No evidence of acute fracture in the cervical spine. > Interpreting Provider: Alexander Rivera MD on 05/02/2025 9:05 PM Albert Turner MD CT ORDERABLES Final Result * CT Head Wo Contrast (05/02/2025 8:01 PM CDT) Anatomical Region Laterality Modality Head Computed Tomogra phy 05/02/2025 8:20 PM CDT Impressions 05/02/2025 9:05 PM CDT IMPRESSION: 1.No acute intracranial hemorrhage, midline shift, or significant mass effect. 2.No evidence of acute fracture in the cervical spine. > Interpreting Provider: Alexander Rivera MD on 05/02/2025 9:05 PM Narrative 05/02/2025 9:05 PM CDT PROCEDURE: CT HEAD WO CONTRAST, CT CERVICAL SPINE WO CONTRAST, DATE/TIME OF EXAM: 05/02/2025 8:04 PM, LOCATION [facility] INDICATION: R41.82: Altered mental status, unspecified altered mental status type R19.7: Diarrhea, unspecified type R53.1: Weakness EXAMINATION: 1.Computed tomography (CT) of the head without contrast 2.CT of the cervical spine without contrast ADDITIONAL CLINICAL INFORMATION: Ordering Provider Reason For Exam: Syncope (accession [id number]), Sycnope (accession [id number]) Technologist Note: None. Additional: None. TECHNIQUE: CT of the head and cervical spine was performed without contrast according to standard protocol. CT dose reduction technique was used, including Automated Exposure Control. COMPARISON: CT of the head from 01/14/2025. FINDINGS: Head: No acute intra- or extra-axial fluid collections are identified. There is mild cerebral volume loss with associated ex vacuo ventricular dilatation. The basilar cisterns are patent. No mass effect or midline shift is seen. The wakefield-white matter differentiation is normal. Periventricular white matter hypoattenuation is indicative of chronic small vessel ischemic disease. There is vascular calcification of the carotid siphons. No acute calvarial fracture is identified. The orbits appear normal. There is mild paranasal sinus disease. The mastoid air cells are clear. There is a 3.0 x 1.5 cm right temporoparietal scalp lipoma. Cervical spine: Examined is mildly deviated to motion artifacts and quantum mottle artifacts. Relative straightening of the cervical lordosis. Minimal anterolisthesis of C4 on C5. Minimal retrolisthesis of C5 on C6. The bones are diffusely osteopenic. Vertebral bodies are normal in height without evidence of acute fracture. Other than advanced middle atlantoaxial joint osteoarthritis, the craniocervical junction appears normal. There is mild degenerative disc disease, worse at C5-C6. Mild central canal stenosis is seen at C5-C6. There are varying degrees of mild facet osteoarthritis. There are varying degrees of mild uncovertebral joint osteoarthritis with the same degree of neural foraminal stenosis at these levels. There is scarring in the lung apices. There is atherosclerotic calcification of the carotid bifurcations. Brain injury guidelines: Skull fracture: No Subdural hematoma: No subdural hematoma. Epidural hematoma: No epidural hematoma. Intraparenchymal hemorrhage: No intraparenchymal hemorrhage. Subarachnoid hemorrhage: No subarachnoid hemorrhage. Intraventricular hemorrhage: No. Midline shift: No. Procedure Note Alexander Rivera MD - 05/02/2025 PROCEDURE: CT HEAD WO CONTRAST, CT CERVICAL SPINE WO CONTRAST,DATE/TIME OF EXAM: 05/02/2025 8:04 PM, LOCATION [facility] INDICATION: R41.82: Altered mental status, unspecified altered mental status type R19.7: Diarrhea, unspecified type R53.1: Weakness EXAMINATION: 1.Computed tomography (CT) of the head without contrast 2.CT of the cervical spine without contrast ADDITIONAL CLINICAL INFORMATION: Ordering Provider Reason For Exam: Syncope (accession [id number]),Sycnope (accession [id number]) Technologist Note: None. Additional: None. TECHNIQUE: CT of the head and cervical spine was performed withoutcontrast according to standard protocol. CT dose reduction technique was used, including Automated Exposure Control. COMPARISON: CT of the head from 01/14/2025. FINDINGS: Head: No acute intra- or extra-axial fluid collections are identified. Thereis mild cerebral volume loss with associated ex vacuo ventriculardilatation. The basilar cisterns are patent. No mass effect or midline shift isseen. The wakefield-white matter differentiation is normal. Periventricular white matter hypoattenuation is indicative of chronic small vessel ischemic disease. There is vascular calcification of the carotid siphons. Noacute calvarial fracture is identified. The orbits appear normal. There ismild paranasal sinus disease. The mastoid air cells are clear. There is a 3.0x 1.5 cm right temporoparietal scalp lipoma. Cervical spine: Examined is mildly deviated to motion artifacts andquantum mottle artifacts. Relative straightening of the cervical lordosis. Minimal anterolisthesisof C4 on C5. Minimal retrolisthesis of C5 on C6. The bones are diffusely osteopenic. Vertebral bodies are normal in height without evidence ofacute fracture. Other than advanced middle atlantoaxial joint osteoarthritis,the craniocervical junction appears normal. There is mild degenerative disc disease, worse at C5-C6. Mild central canal stenosis is seen at C5-C6. There are varying degrees of mild facet osteoarthritis. There arevarying degrees of mild uncovertebral joint osteoarthritis with the same degreeof neural foraminal stenosis at these levels. There is scarring in the lung apices. There is atherosclerotic calcification of the carotidbifurcations. Brain injury guidelines: Skull fracture: No Subdural hematoma: No subdural hematoma. Epidural hematoma: No epidural hematoma. Intraparenchymal hemorrhage: No intraparenchymal hemorrhage. Subarachnoid hemorrhage: No subarachnoid hemorrhage. Intraventricular hemorrhage: No. Midline shift: No. IMPRESSION: 1.No acute intracranial hemorrhage, midline shift, or significant mass effect. 2.No evidence of acute fracture in the cervical spine. > Interpreting Provider: Alexander Rivera MD on 05/02/2025 9:05 PM [address] MD CT ORDERABLES Final Result * XR Chest 1Vw (05/02/2025 6:43 PM CDT) Anatomical Region Laterality Modality Chest Digital Radiogra phy 05/02/2025 7:59 PM CDT Narrative 05/03/2025 3:30 AM CDT PROCEDURE: XR CHEST 1VW, DATE/TIME OF EXAM: 05/02/2025 6:43 PM, LOCATION [facility] INDICATION: R41.82: Altered mental status, unspecified altered mental status type R19.7: Diarrhea, unspecified type R53.1: Weakness ADDITIONAL CLINICAL INFORMATION: Ordering Provider Reason For Exam: Infectious Comparison: Chest radiograph 12/08/2024 FINDINGS/IMPRESSION: Low lung volumes bilaterally with associated bronchovascular crowding. Interstitial opacities bilateral lung bases, may relate to atelectasis. No sizable pleural effusion. No pneumothorax. The cardiomediastinal silhouette is normal for portable technique and given degree of right rotation. No displaced fractures visualized. Report dictated by Tal Yao MD (vice president risk management). > Dictated by Manager Cleaning I, Marlon Obrien MD have personally reviewed and interpreted this examination/study. > Interpreting Provider: Marlon Obrien MD on 05/03/2025 3:30 AM Procedure Note Marlon Obrien MD - 05/03/2025 PROCEDURE: XR CHEST 1VW, DATE/TIME OF EXAM: 05/02/2025 6:43 PM, LOCATION [facility] INDICATION: R41.82: Altered mental status, unspecified altered mental status type R19.7: Diarrhea, unspecified type R53.1: Weakness ADDITIONAL CLINICAL INFORMATION: Ordering Provider Reason For Exam: Infectious Comparison: Chest radiograph 12/08/2024 FINDINGS/IMPRESSION: Low lung volumes bilaterally with associated bronchovascular crowding. Interstitial opacities bilateral lung bases, may relate to atelectasis.No sizable pleural effusion. No pneumothorax. The cardiomediastinalsilhouette is normal for portable technique and given degree of right rotation. No displaced fractures visualized. Report dictated by Tal Yao MD (vice president risk management). > Dictated by Manager Cleaning I, Marlon Obrien MD have personally reviewed and interpreted this examination/study. > Interpreting Provider: Marlon Obrien MD on 05/03/2025 3:30 AM us Albert Turner MD DIAGNOSTIC IMAGING ORDERABLES Fi nal Result * BLOOD TYPE VERIFICATION (05/02/2025 6:30 PM CDT) ABO Rh A POS 05/02/2025 7:1 7 PM CDT [facility] BLOOD BANK LAB Blood Bank BLOOD SPECIMEN / Unknown Venipuncture / Unknown 05/02/2025 6:30 PM CDT 05/02/2025 6:44 PM CDT us Albert Turner MD LAB - BLOOD BANK ORDERABLES Mira l Result [facility] BLOOD BANK LAB [address] [place] [address], [facility] [phone] * TROPONIN-I HIGH SENSITIVE REFLEX 1HOUR (05/02/2025 6:27 PM CDT) Pathologist [facility] Troponin I High Sensitive <3 <=35 ng/L 05/02/2025 9:20 PM CDT [facility] Delta Troponin I HS 05/02/2025 9:20 PM CDT [facility] Comment:Delta value intentio elzbieta not calculated. Baseline to 1 hour specimen collection interval exceeded. Blood BLOOD SPECIMEN / Unknown Venipuncture / Unknown 05/02/2025 6:27 PM CDT 05/02/2025 6:45 PM CDT Albert Turner MD LAB - CHEMISTRY ORDERABLES Final Result [facility] [address] [place] [address], [facility] [phone] * (ABNORMAL) BLOOD GASES SALLY + COOX PANEL (05/02/2025 6:27 PM CDT) Pathologist [facility] pH Venous 7.32 7.32 - 7.42 pH 05/02/2025 6:48 PM T [facility] pO2 Venous 38 35 - 40 mmHg 05/02/2025 6:48 PM T [facility] pCO2 Venous 51(H) 40 - 50 mmHg 05/02/2025 6:48 PM T [facility] HCO3 Venous 26.3 20 - 30 mmol/L 05/02/2025 6:48 PM T [facility] Base Excess Venous -0.7 -2.0 - 2.0 mmol/L 05/02/2025 6:48 PM T [facility] Oxyhemoglobin Venous 64.4 % 04/21 6:48 PM [facility] Deoxyhemoglobin (HHB) Venous % 33.9 % 05/02/2025 6:48 PM T [facility] Methemoglobin <0.8 0.0 - 2.0 % 05/02/2025 6:48 PM T [facility] Carboxyhemoglobin 1.6 0.0 - 2.0 % 2024 6:48 PM CDT [facility] O2 Content Venous 13.7 Interpret within clinical context ml/dL 05/02/2025 6:48 PM CDT [facility] Hemoglobin by COOX 15.2 12.0 - 17.6 g/dL 05/02/2025 6:48 PM CDT [facility] O2 Saturation Venous 66(L) >=70 % 04/21 6:48 PM CDT [facility] FI O2 Mixed Venous 28.0 % 2024 6:48 PM CDT [facility] Blood BLOOD SPECIMEN / Unknown Venipuncture / Unknown 05/02/2025 6:27 PM CDT 05/02/2025 6:35 PM CDT Narrative [facility] - 05/02/2025 6:48 PM CDT Carboxyhemoglobin Normal Concentration: Non-smokers: 0-2%; Smokers: 0-9%; Toxic: >20% Albert Turner MD LAB - BLOOD GASES ORDERABLES Fin al Result [facility] [address] [place] [address], [place] [phone] * TYPE + SCREEN PANEL (05/02/2025 5:48 PM CDT) Antibody Screen NEG 6:44 PM CDT [facility] B[facility]OD [facility] LAB ABO Rh A POS 05/02/2025 6:44 PM CDT [facility] BLOOD [facility] LAB Blood Bank BLOOD SPECIMEN / Unknown Venipuncture / Unknown 05/02/2025 5:48 PM CDT 05/02/2025 5:59 PM CDT Albert Turner MD LAB - BLOOD BANK ORDERABLES Mira l Result [facility] BLOOD [facility] LAB [address] [place] [address], [place] [phone] * CULTURE BLOOD (05/02/2025 5:45 PM CDT) Only the most recent of2 resultswithin the time period is included. Culture No growth day 5 LUCIUS 05/07/2025 11:31 PM CDT [facility]CRO[facility] Blood PERIPHERAL BLOOD / Unknown Venipuncture / Unknown 05/02/2025 5:45 PM CDT 05/02/2025 5:58 PM CDT Albert Turner MD LAB - MICROBIOLOGY ORDERABLES Fi nal Result [facility]CRO[facility] [address] [place], [place] [address], [facility] [phone] * PROCALCITONIN LEVEL (05/02/2025 5:30 PM CDT) Pathologist [facility] PROCALCITONIN <0.02 <=0.10 ng/mL 05/02/2025 9:37 PM CDT [facility] Blood BLOOD SPECIMEN / Unknown Venipuncture / Unknown 05/02/2025 5:30 PM CDT 05/02/2025 5:55 PM CDT Narrative [facility] - 05/02/2025 9:37 PM CDT The change in procalcitonin (PCT) concentration over time provides support in decision making on antibiotic discontinuation for suspected or confirmed septic patients. Follow-up samples should be tested once every 1-2 days based upon physician discretion taking into account the patient s evolution and progress. Consider discontinuation of antibiotic therapy if the PCT current is <= 0.5 ng/mL or if the delta PCT is > 80%. Duration of antibiotics should not be determined solely on PCT; established guidelines for the indication should be followed. PCT peak: Highest observed PCT concentration PCT current: Most recent PCT concentration Calculate delta PCT using the following equation: Delta PCT = PCT Peak PCT current X 100% PCT Peak The Change in Procalcitonin Calculator is available at [email or web address] If clinical picture has not improved and PCT remains high, reevaluate and consider treatment failure or other causes. Albert Turner MD LAB - CHEMISTRY ORDERABLES Final Result Performing Organization Address City/[facility]/ZIP Co de Phone Number [address] [address], [place] [phone] * TROPONIN-I HIGH SENSITIVE BASELINE + 1HR (05/02/2025 5:30 PM CDT) [facility] Troponin I High Sensitive <3 <=35 ng/L 05/02/2025 9:22 PM CDT [facility] Blood BLOOD SPECIMEN / Unknown Venipuncture / Unknown 05/02/2025 5:30 PM CDT 05/02/2025 5:55 PM CDT Albert Turner MD LAB - CHEMISTRY ORDERABLES Final Result Performing Organization Address [facility] Co de Phone Number [address] [address], [place] [phone] * PT-INR (05/02/2025 5:30 PM CDT) [facility] PT 12.1 12.1 - 14.8 Seconds 05/02/2025 6:25 PM CDT [facility] INR 0.9 See Comment 05/02/2025 6:25 PM CDT [facility] Comment:The suggested therap eutic range for standard coumadin (warfarin) therapy is an INR of 2.0-3.0. For high-risk patients (Mechanical Mitral Valve Prosthesis, etc.), the suggested prophylactic therapeutic range is an INR of 2.5-3.5. Blood BLOOD SPECIMEN / Unknown Venipuncture / Unknown 05/02/2025 5:30 PM CDT 05/02/2025 5:55 PM CDT Albert Turner MD LAB - COAGULATION ORDERABLES Fin al Result Performing Organization Address [facility]/ZIP Co de Phone Number [address] [address], [place] [phone] * B-TYPE NATRIURETIC PEPTIDE (05/02/2025 5:30 PM CDT) [facility] BNP <10 <100 pg/mL 05/02/2025 7:22 PM CDT [facility] Comment: A decision threshold of 100 pg/mL has been demonstrated to provide the maximal combination of sensitivity, specificity and predictive value for the diagnosis of congestive heart failure (CHF). Virtually all patients with no evidence of CHF have BNP values less than 100 pg/mL. A BNP value greater than 100 pg/mL is consistent with the diagnosis of CHF in the appropriate clinical setting. In a study of 693 patients (male and female) with diagnosed CHF, the following values were determined based on the NYHA functional classification system: NYHA Functional Class Mean Valule (pg/mL) % >100 pg/mL I 320 58.1 II 432 73.0 III 656 79.0 IV 1635 98.3 Blood BLOOD SPECIMEN / Unknown Venipuncture / Unknown 05/02/2025 5:30 PM CDT 05/02/2025 5:55 PM CDT Albert Turner MD LAB - CHEMISTRY ORDERABLES Final Result Performing Organization Address City/[facility]/ZIP Co de Phone Number [address] [address], [facility] [phone] * PHOSPHORUS BLOOD (05/02/2025 5:30 PM CDT) Phosphorus 3.7 2.8 - 5.1 mg/dL 05/02/2025 6:34 PM [address]T [facility] Blood BLOOD SPECIMEN / Unknown Venipuncture / Unknown 05/02/2025 5:30 PM CDT 05/02/2025 5:56 PM CDT Albert Turner MD LAB - CHEMISTRY ORDERABLES Final Result [address] [address], [facility] [phone] * MAGNESIUM BLOOD (05/02/2025 5:30 PM CDT) Magnesium 2.0 1.6 - 2.6 mg/dL 05/02/2025 6:34 PM CDT [facility] Blood BLOOD SPECIMEN / Unknown Venipuncture / Unknown 05/02/2025 5:30 PM CDT 05/02/2025 5:56 PM CDT Albert Turner MD LAB - CHEMISTRY ORDERABLES Final Result [address] [address], [place] [phone] * LIPASE BLOOD (05/02/2025 5:30 PM CDT) Lipase 27 8 - 78 U/L 05/02/2025 6:35 PM CDT [facility] Blood BLOOD SPECIMEN / Unknown Venipuncture / Unknown 05/02/2025 5:30 PM CDT 05/02/2025 5:55 PM CDT Narrative [facility] - 05/02/2025 6:35 PM CDT Lipase results from the [employer] Alinity analyzer may not be comparable with other methodologies. Albert Turner MD LAB - CHEMISTRY ORDERABLES Final Result Performing Organization Address [facility]/ZIP Co de Phone Number [address] [address], [place] [phone] * CK BLOOD (05/02/2025 5:30 PM CDT) Pathologist [facility] CK Total 30 30 - 200 U/L 05/02/2025 6:35 PM CDT [facility] Blood BLOOD SPECIMEN / Unknown Venipuncture / Unknown 05/02/2025 5:30 PM CDT 05/02/2025 5:55 PM CDT Albert Turner MD LAB - CHEMISTRY ORDERABLES Final Result Performing Organization Address City/[facility]/ZIP Co de Phone Number [address] [address], [place] [phone] * AMMONIA (05/02/2025 5:30 PM CDT) Ammonia 19 <=72 umol/L 05/02/2025 6:27 PM CDT [facility] Blood BLOOD SPECIMEN / Unknown Venipuncture / Unknown 05/02/2025 5:30 PM CDT 05/02/2025 5:56 PM CDT Albert Turner MD LAB - CHEMISTRY ORDERABLES Final Result Performing Organization Address City/[facility]/ZIP Co de Phone Number [phone] [place] [address], [facility] [phone] * (ABNORMAL) ALCOHOL ETHYL BLOOD (05/02/2025 5:30 PM CDT) Ethanol (mg/dL) 223(H) <10 mg/dL 6:35 PM CDT [facility] Ethanol Calculated (g/dL) 0.223(H) <=0.010 g/dL 05/02/2025 6:35 PM CDT [facility] Blood BLOOD SPECIMEN / Unknown Venipuncture / Unknown 05/02/2025 5:30 PM CDT 05/02/2025 5:55 PM CDT Narrative [facility] - 05/02/2025 6:35 PM CDT Ethanol Interp <10: None Detected. Depression of COIL INSPECTOR: >100 mg/dl Potentially Critical: >250 mg/dl Potentially Fatal >400 mg/dl Ethanol in the patient's blood will contribute to the osmolar gap. Ethanol's contribution to the osmolar gap can be estimated by dividing the concentration of ethanol in mg/dL by 4.6. This test is for clinical use only and does not equal a RICCARDO for legal purposes. Albert Turner MD LAB - CHEMISTRY ORDERABLES Final Result Performing Organization Address City/[facility]/ZIP Co de Phone Number [address] [address], [place] [phone] from Last 3 Months Insurance [employer] Advance Directives * Full Code (Latest Code Status on File) Date Activated Date Inactivated Comments 05/02/2025 11:48 PM 05/03/2025 4:55 PM * Full Code Date Activated Date Inactivated Comments 09/23/2024 6:37 PM 09/24/2024 7:13 PM Care Teams Workforce Advisor Relationship Specialty Start Date End Date Doris Chi MD [address] [place] [address] PCP - General Family Medicine 05/02/25
--- OUTSIDE RECORDS SUMMARY | 2025-05-19 11:34 | XMS_ITS | Clinical Summary ---
Author Organization [facility] Address [facility] [place] [address] Care Team Providers Care Flame Burner Name Role Phone Unknown, Notinfile Primary Care Provider Unavail able Allergies Active Allergy Reactions Criticality Noted Date Comments Penicillins Angioedema High 11/12/2024 Medications atorvastatin (LIPITOR) 10 mg tablet Take 1 tablet (10 mg total) by mouth daily 06/25/20 24 Active gabapentin (NEURONTIN) 300 mg capsule Take 1 capsule (300 mg total) by mouth as needed 08/21/20 24 Active losartan (COZAAR) 50 mg tablet Take 1 tablet (50 mg total) by mouth daily 03/03/20 24 Active metoprolol tartrate (LOPRESSOR) 25 mg immediate release tablet Take 1 tablet (25 mg total) by mouth 2 (two) times a day 09/24/19 25 Active mirtazapine (REMERON) 30 mg tablet Take 1.5 tablets (45 mg total) by mouth nightly 09/24/19 25 Active PARoxetine (PAXIL) 30 mg tablet Take 0.5 tablets (15 mg total) by mouth daily 08/15/20 24 Active hydrOXYzine (ATARAX) 25 mg tablet Take 1 tablet (25 mg total) by mouth every 6 (six) hours 12 tablet 03/24/20 25 Active butalbital-acetamin ophen-caffeine (ESGIC) 50-325-40 mg per tablet Take 1 tablet by mouth every 4 (four) hours as needed for headaches 15 tablet 04/08/20 25 Active apixaban 5 mg (74 tabs) tablets,dose packIndications:pul monary thromboembolism Take 10 mg (2 tablets) by mouth 2 (two) times a day for 7 days, then take 5 mg (1 tablet) by mouth 2 (two) times a day thereafter. 74 tablet 04/15/20 25 Active ofloxacin (FLOXIN) 0.3 % otic solutionIndications :Otitis Externa Administer 3 drops into the right ear 2 (two) times a day for 7 days 5 mL 04/30/20 25 025 Active Problems No known active problems Encounters Date Type Department Care Team Description 05/17/2025 Telephone [facility] Medicine Otolaryngology [address] [place] [address] Elle Meehan MS 05/14/2025 8:28 AM CDT - 05/14/2025 10:34 AM CDT Emergency [facility] Emergency Department [address] [place] [id number] Ramez Lim MD Tinnitus of both ears (Primary Dx); Benzodiazepine dependence (HCC) Discharge Disposition: Discharge to home or self care 05/07/2025 10:48 AM CDT - 05/07/2025 2:07 PM CDT Emergency [facility] Emergency Department [address] [place] [address] Santos Kerr Jr., MD Tinnitus of both ears (Primary Dx); Acute nonintractable headache, unspecified headache type; Hypertension, unspecified type Discharge Disposition: Discharge to home or self care 05/05/2025 8:13 AM CDT - 05/05/2025 10:11 AM CDT Emergency [facility] Emergency Department [address] [place] [address] Saba Tapia MD Tinnitus of both ears (Primary Dx); Benzodiazepine dependence (HCC) Discharge Disposition: Discharge to home or self care 04/30/2025 3:23 PM CDT - 04/30/2025 5:00 PM CDT Emergency [facility] Emergency Department [address] [place] [phone] Ivelisse Ramon MD Acute otitis externa of right ear, unspecified type (Primary Dx); Foreign body of right ear, initial encounter; Tinnitus of both ears Discharge Disposition: Discharge to home or self care 04/21/2025 3:01 PM CDT - 04/21/2025 9:32 PM CDT Emergency [facility] Emergency Department [address] [place] [address] Lopez Metz MD Tinnitus of both ears (Primary Dx); Acute intractable headache, unspecified headache type Discharge Disposition: Discharge to home or self care 04/15/2025 1:48 PM CDT - 04/15/2025 7:06 PM CDT Emergency [facility] Emergency Department [address] [place] [address] Nela Abad MD Paulsen, Robbie Ellen, MD Anxiety (Primary Dx); Tinnitus of both ears; Other migraine without status migrainosus, not intractable; Other acute pulmonary embolism without acute cor pulmonale (HCC) Discharge Disposition: Discharge to home or self care 04/12/2025 8:15 PM CDT - 04/13/2025 1:00 AM CDT Emergency [facility] Emergency Department [address] [place] [address] Nela Abad MD Tinnitus of both ears (Primary Dx); Other migraine without status migrainosus, not intractable Discharge Disposition: Discharge to home or self care 04/10/2025 4:57 PM CDT - 04/10/2025 6:54 PM CDT Emergency [facility] Emergency Department [address] [place] [address] Discharge Disposition: Left without being seen 04/08/2025 1:41 PM CDT - 04/08/2025 5:20 PM CDT Emergency [facility] Emergency Department [address] [place] [address] Saba Tapia MD Acute intractable headache, unspecified headache type (Primary Dx) Discharge Disposition: Discharge to home or self care 04/06/2025 5:35 AM CDT - 04/06/2025 7:56 AM CDT Emergency [facility] Emergency Department [address] [place] [address] Franklyn Mclain MD Thomas, Jenna Marie, MD Tinnitus of both ears (Primary Dx); Other migraine with status migrainosus, not intractable Discharge Disposition: Discharge to home or self care 04/03/2025 Telephone [facility] Medicine Otolaryngology [address] [place] [address] Elle Meehan, 03/23/2025 11:55 PM CDT - 03/24/2025 3:08 AM CDT Emergency [facility] Emergency Department [address] [place] [address] Nina Bejarano MD Anxiety (Primary Dx); Tinnitus of both ears Discharge Disposition: Discharge to home or self care 03/22/2025 Orders Only [facility] [address] [facility] [address] [place] [address] Lasha Patel PA Primary osteoarthritis involving multiple joints (Primary Dx); Chronic pain syndrome 03/15/2025 9:13 AM CDT - 03/15/2025 10:56 AM CDT Emergency [facility] Emergency Department [address] [place] [address] Bj Leger DO Tinnitus, unspecified laterality (Primary Dx); Anxiety Discharge Disposition: Discharge to home or self care 03/12/2025 3:40 PM CDT - 03/12/2025 7:29 PM CDT Emergency [facility] Emergency Department [address] [place] [address] Anxiety (Primary Dx) Discharge Disposition: Discharge to home or self care 03/12/2025 9:30 AM CDT - 03/12/2025 12:34 PM CDT Emergency [facility] Emergency Department [address] [place] [address] Ken Monreal MD Tinnitus of both ears (Primary Dx) Discharge Disposition: Discharge to home or self care 03/06/2025 12:00 PM CDT - 03/06/2025 1:05 PM CDT Surgery [facility] Operating Room [address] [place] [address] Santos Hart MD SEPTOPLASTY AND BILATERAL INFERIOR TURBINATE REDUCTION [50798 (CPT )] 03/06/2025 11:52 AM CDT Anesthesia Event [facility] Operating Room [address] [place] [address] Ivelisse Benton DO Riordan, Isabella Rossi, MD 03/06/2025 9:56 AM CDT - 03/06/2025 2:50 PM CDT Hospital Encounter [facility] Operating Room [address] [place] [address] Santos Hart MD Discharge Disposition: Discharge to home or self care from Last 3 Months Surgical History Surgery Date Site/Laterality Comments NASAL SEPTUM SURGERY 03/06/2025 Face/Bilateral Procedure: SEPTOPLASTY AND BILATERAL INFERIOR TURBINATE REDUCTION; Surgeon: Santos Hart MD; Location: [facility]; Service: Otolaryngology; Laterality: Bilateral; Medical [...] making you feel afraid or unsafe? Denies 05/14/2025 Sex and Gender Information Value Date Recorded Sex Assigned at Not on file Legal Sex Male 10:07 AM [employer]CTION[employer] Gender Identity Not on file Sexual Orientation Not on file Obstetrics History Last Filed Vital Signs Vital Sign Reading Time Taken Comments Blood Pressure 158/105 05/14/2025 10:00 AM CDT Pulse 106 05/14/2025 10:00 AM CDT Temperature 36.7 C (98.1 F) 05/14/2025 8:32 AM CDT Respiratory Rate 18 05/14/2025 10:00 AM CDT Oxygen Saturation 99% 05/14/2025 10:00 AM CDT Inhaled Oxygen Concentration - - Weight 99.8 kg (220 lb) 05/14/2025 8:32 AM CDT Height 188 cm (6' 2) 05/14/2025 8:32 AM CDT Body Mass Index 28.25 05/14/2025 8:32 AM CDT Plan of Treatment Health Maintenance Due [...] Procedure Name Priority Date/Time Associated Diagnosis Comments ED FOREIGN BODY REMOVAL - ORIFICE Routine 04/30/2025 4:42 PM CDT EGFR STAT 04/21/2025 4:20 PM CDT DIFFERENTIAL AUTO STAT 04/21/2025 4:2 0 PM CDT MAGNESIUM STAT 04/21/2025 4:20 PM CDT CBC WITH AUTO DIFFERENTIAL STAT 04/21/2025 4:20 PM CDT COMPREHENSIVE METABOLIC PANEL STAT 04/21/2025 4:20 PM CDT PRO B-TYPE NATRIURETIC PEPTIDE Add-On 04/15/2025 4:34 [...] ECG 12-LEAD STAT 03/12/2025 3:41 PM CDT ME AN PROCEDURE PLACEHOLDER Routine 03/06/2025 12:16 PM CDT ME AN ELECTIVE ENDOTRACHEAL AIRWAY Routine 03/06/2025 12:16 PM CDT ME SEPTOPLASTY/SUBMUCOU S RESECJ W/WO CARTILAGE GRF 03/06/2025 11:59 AM CDT Deviated nasal septum Other specified disorders of nose and nasal sinuses Nasal congestion Hypertrophy of nasal turbinates Case Notes NO SPECIAL NEEDS / NO REP NEEDED FOR THIS CASE from Last 3 Months Results * Foreign Body Removal - Orifice (04/30/2025 4:42 PM CDT) Narrative Ivelisse Ramon MD - 04/30/2025 4:42 PM CDT Ivelisse Ramon MD 04/30/2025 4:43 PM Foreign Body Removal - Orifice Date/Time: 04/30/2025 4:42 PM Performed by: Ivelisse Ramon MD Authorized by: Ivelisse Ramon MD Consent: Consent obtained: Verbal Location: Location: Ear Ear location: R ear Sedation: Sedation type: Anxiolysis Procedure details: Localization method: Direct visualization Removal mechanism: Alligator forceps Procedure complexity: Simple Foreign bodies recovered: 3 Description: Tissue paper, 3 pieces Post-procedure details: Confirmation: No additional foreign bodies on visualization Patient tolerance of procedure: Tolerated well, no immediate complications Ivelisse Ramon MD IN CLINIC/BEDSIDE ORDERABLES F inal Result * eGFR (04/21/2025 4:20 PM CDT) Pathologist [facility] eGFR >90 >=60 mL/min/1. 73 m2 Comment: [...] interpretive data was last reviewed 2021. Blood 04/21/2025 4:20 PM CDT 04/21/2025 4:24 PM CDT us Lopez Metz MD LAB BLOOD ORDERABLES Final Resul t [facility] [address] [facility] Department [place] [address] * (ABNORMAL) Differential, auto (04/21/2025 4:20 PM CDT) Pathologist [facility] Neutrophil abs 8.60(H) 1.50 - 6.50 K/cumm Imm gran abs 0.13(H) 0.00 - 0.10 K/cumm [facility] Lymphocyte abs 1.69 0.80 - 3.30 K/cumm [facility] Monocyte abs 0.39 0.20 - 0.80 K/cumm [facility] Eosinophil abs 0.01 0.00 - 0.50 K/cumm [facility] Basophil abs 0.03 0.00 - 0.10 K/cumm [facility] Neutrophil pct 79.2 % [facility] Comment: Interpretive Data Percent cell count reference ranges are not reported, since discordance with absolute values may lead to misinterpretation of CBC data. Current Interpretive Data was last revised on 2017. Imm gran pct 1.2 % [facility] Comment: Interpretive Data Percent cell count reference ranges are not reported, since discordance with absolute values may lead to misinterpretation of CBC data. Current Interpretive Data was last revised on 2017. Lymphocyte pct 15.6 % [facility] Comment: Interpretive Data Percent cell count reference ranges are not reported, since discordance with absolute values may lead to misinterpretation of CBC data. Current Interpretive Data was last revised on 2017. Monocyte pct 3.6 % [facility] Comment: Interpretive Data Percent cell count reference ranges are not reported, since discordance with absolute values may lead to misinterpretation of CBC data. Current Interpretive Data was last revised on 2017. Eosinophil pct 0.1 % [facility] Comment: Interpretive Data Percent cell count reference ranges are not reported, since discordance with absolute values may lead to misinterpretation of CBC data. Current Interpretive Data was last revised on 2017. Basophil pct 0.3 % [facility] Comment: Interpretive Data Percent cell count reference ranges are not reported, since discordance with absolute values may lead to misinterpretation of CBC data. Current Interpretive Data was last revised on 2017. Blood 04/21/2025 4:20 PM CDT 04/21/2025 4:24 PM CDT us Lopez Metz MD LAB BLOOD ORDERABLES Final Resul t [facility] [address] [facility] Department [place] [address] * (ABNORMAL) CBC with auto differential (04/21/2025 4:20 PM CDT) WBC 10.85(H) 3.80 - 9.90 K/cumm Hgb 14.5 13.0 - 17.5 g/dL [facility] Hct 41.7 38.9 - 50.3 % [facility] Plt 219 150 - 400 K/cumm [facility] MPV 9.1 9.1 - 12.3 fL [facility] RBC 4.68 4.30 - 5.80 M/cumm [facility] MCV 89.1 81.3 - 96.4 fL [facility] MCH 31.0 27.1 - 33.3 pg [facility] MCHC 34.8 32.3 - 35.7 g/dL [facility] RDW CV 13.2 11.1 - 14.9 % [facility] RDW SD 42.6 35.7 - 48.1 fL [facility] Blood 04/21/2025 4:20 PM CDT 04/21/2025 4:24 PM CDT us Lopez Metz MD LAB BLOOD ORDERABLES Final Resul t Performing Organization Address City/[facility] Co de Phone Number [facility] [address] [facility] Department [place] [address] * Magnesium (04/21/2025 4:20 PM CDT) Pathologist [facility] Magnesium 2.2 1.4 - 2.5 mg/dL Blood 04/21/2025 4:20 PM CDT 04/21/2025 4:24 PM CDT us Lopez Metz MD LAB BLOOD ORDERABLES Final Resul t Performing Organization Address City/[facility] Co de Phone Number [facility] [address] [facility] Department [place] [address] * (ABNORMAL) Comprehensive metabolic panel (04/21/2025 4:20 PM CDT) Pathologist [facility] Sodium 138 135 - 145 mmol/L Potassium, pl 4.2 3.3 - 4.9 mmol/L [facility] Chloride 103 97 - 110 mmol/L [facility] CO2 22 22 - 32 mmol/L [facility] Anion gap 13 2 - 15 mmol/L [facility] BUN 21 6 - 25 mg/dL [facility] Creatinine 0.90 0.80 - 1.30 mg/dL [facility] Glucose 109 70 - 199 mg/dL [facility] Comment: Interpretive Data Fasting glucose >/= [...] interpretive data was last revised 2022. Calcium 9.8 8.5 - 10.3 mg/dL [facility] Bilirubin, total 0.3 0.1 - 1.2 mg/dL [facility] Protein, pl 6.9 6.5 - 8.5 g/dL [facility] Albumin 4.3 3.5 - 5.0 g/dL [facility] Alk phos 40 40 - 130 Units/L [facility] ALT 80(H) 7 - 55 Units/L [facility] AST 41 10 - 50 Units/L [facility] Blood 04/21/2025 4:20 PM CDT 04/21/2025 4:24 PM CDT us Lopez Metz MD LAB BLOOD ORDERABLES Final Resul t Performing Organization Address City/State/[facility] Co de Phone Number [facility] [address] [facility] Department [place] [address] * Troponin T high-sensitivity 2-hour (04/15/2025 4:34 [...] LAB BLOOD ORDERA BLES Final Result [facility] [address] [place] [address] * Pro B-type natriuretic peptide (04/15/2025 4:34 [...] et.al. Eur Heart J. 2006:27:330-337. 2. Sulaiman ORELLANA, Sj SALES. J. AM Kassy Cardiol: Cardiovasc Imag. 2009;2: 216- 225. Interpretive Data Last Revised Date: 2018. Blood 04/15/2025 4:34 PM CDT 04/15/2025 5:22 PM CDT us Salvador Saldivar MD LAB BLOOD ORDERABLES Fin al Result [facility] [address] Department [place] [address] * CT Chest PE (CTA) W Contrast [...] De La Rosa M.D. Nela Abad MD IM CT PROCEDURE S Final Result * Protime-INR (04/15/2025 3:17 PM CDT) PT 12.0 9.7 - 13.0 sec INR 1.11 0.90 - 1.20 [facility] Comment: Interpretive data Oral anticoagulant therapeutic ranges: Venous thromboembolism prophylaxis or treatment: 2.0-3.0 CARDIOLOGY Standard range: 2.0-3.0 High-intensity range: 2.5-3.5 Refer to indication-specific guidelines for appropriate target ranges for prosthetic heart valve replacement. Current interpretive data was last revised on 2019. Blood 04/15/2025 3:17 PM CDT 04/15/2025 5:41 PM CDT Narrative [facility] - 04/15/2025 5:45 PM CDT Baseline prior to apixaban initiation. Salvador Saldivar MD LAB BLOOD ORDERABLES Fin al Result Performing Organization Address City/[facility]/ZIP Co de Phone Number [facility] [place] [address] * (ABNORMAL) D-dimer, quantitative (04/15/2025 3:17 PM [...] LAB BLOOD ORDERA BLES Final Result [facility] [place] [address] * XR Chest 1 Vw Portable (If [...] MD LAB BLOOD ORDERA BLES Final Result [facility] [address] [facility] [place] [address] * eGFR (04/15/2025 1:57 PM CDT) eGFR [...] MD LAB BLOOD ORDERA BLES Final Result [facility] [address] [facility] Department of Laboratories [place], [place] [address] * (ABNORMAL) Differential, auto (04/15/2025 1:57 PM CDT) Neutrophil abs 5.37 1.50 - 6.50 K/cumm Imm gran abs 0.06 0.00 - 0.10 K/cumm [facility] Lymphocyte abs 0.80 0.80 - 3.30 K/cumm [facility] Monocyte abs 0.04(L) 0.20 - 0.80 K/cumm [facility] Eosinophil abs 0.00 0.00 - 0.50 K/cumm [facility] Basophil abs 0.02 0.00 - 0.10 K/cumm [facility] Neutrophil pct 85.4 % [facility] Comment: Interpretive Data Percent cell count reference ranges are not reported, since discordance with absolute values may lead to misinterpretation of CBC data. Current Interpretive Data was last revised on 2017. Imm gran pct 1.0 % [facility] Comment: Interpretive Data Percent cell count reference ranges are not reported, since discordance with absolute values may lead to misinterpretation of CBC data. Current Interpretive Data was last revised on 2017. Lymphocyte pct 12.7 % [facility] Comment: Interpretive Data Percent cell count reference ranges are not reported, since discordance with absolute values may lead to misinterpretation of CBC data. Current Interpretive Data was last revised on 2017. Monocyte pct 0.6 % [facility] Comment: Interpretive Data Percent cell count reference ranges are not reported, since discordance with absolute values may lead to misinterpretation of CBC data. Current Interpretive Data was last revised on 2017. Eosinophil pct 0.0 % [facility] Comment: Interpretive Data Percent cell count reference ranges are not reported, since discordance with absolute values may lead to misinterpretation of CBC data. Current Interpretive Data was last revised on 2017. Basophil pct 0.3 % [facility] Comment: Interpretive Data Percent cell count reference ranges are not reported, since discordance with absolute values may lead to misinterpretation of CBC data. Current Interpretive Data was last revised on 2017. Blood 04/15/2025 1:57 PM CDT 04/15/2025 2:08 PM CDT us Nela Abad MD LAB BLOOD ORDERA BLES Final Result [facility] [address] [facility] Department [place] [address] * (ABNORMAL) CBC with auto differential (04/15/2025 1:57 PM CDT) WBC 6.29 3.80 - 9.90 K/cumm Hgb 15.6 13.0 - 17.5 g/dL [facility] Hct 45.3 38.9 - 50.3 % [facility] Plt 217 150 - 400 K/cumm [facility] MPV 8.8(L) 9.1 - 12.3 fL [facility] RBC 5.05 4.30 - 5.80 M/cumm [facility] MCV 89.7 81.3 - 96.4 fL [facility] MCH 30.9 27.1 - 33.3 pg [facility] MCHC 34.4 32.3 - 35.7 g/dL [facility] RDW CV 12.8 11.1 - 14.9 % [facility] RDW SD 41.8 35.7 - 48.1 fL [facility] Blood 04/15/2025 1:57 PM CDT 04/15/2025 2:08 PM CDT us Nela Abad MD LAB BLOOD ORDERA BLES Final Result [facility] [address] Department [place] [address] * (ABNORMAL) Comprehensive metabolic panel (04/15/2025 1:57 PM CDT) Sodium 137 135 - 145 mmol/L Potassium, pl 4.4 3.3 - 4.9 mmol/L [facility] Chloride 104 97 - 110 mmol/L [facility] CO2 20(L) 22 - 32 mmol/L [facility] Anion gap 13 2 - 15 mmol/L [facility] BUN 14 6 - 25 mg/dL [facility] Creatinine 1.00 0.80 - 1.30 mg/dL [facility] Glucose 137 70 - 199 mg/dL [facility] Comment: Interpretive Data Fasting glucose >/= [...] 2022. Calcium 9.3 8.5 - 10.3 mg/dL [facility] Bilirubin, total 0.4 0.1 - 1.2 mg/dL [...] ORDERA BLES Final Result Performing Organization Address City/[facility] Co de Phone Number [facility] [address] [facility] [employer] [place], [place] [id number] * ECG 12 lead (04/15/2025 1:45 PM CDT) 04/15/2025 1:45 PM CDT Narrative [facility] - 04/15/2025 2:27 PM CDT Vent Rate: 133 bpm RR Interval: 451 msec ME Interval: 135 msec QRS Duration: 96 msec QT Interval: 302 msec QTC Interval: 380 msec P-R-T Oneill: 44 - -2 - 59 degrees IMPRESSION: SINUS TACHYCARDIA NONSPECIFIC T-WAVE ABNORMALITY ABNORMAL RHYTHM ECG Electronically Signed By: Tapan Verduzco, , [facility] Nela Abad MD ECG ORDERABLES Final Result Performing Organization Address [facility] Co de Phone Number [facility] * Magnesium (04/12/2025 11:58 PM CDT) Magnesium 2.0 1.4 - 2.5 mg/dL Blood 04/12/2025 11:5 8 PM CDT 04/13/2025 12:12 AM CDT Nela Abad MD LAB BLOOD ORDERA BLES Final Result Performing Organization Address City/[facility] Co de Phone Number [facility] [address] [facility] Department [place] [address] * eGFR (04/08/2025 3:16 PM CDT) [facility] eGFR >90 >=60 mL/min/1. 73 m2 Comment: [...] MD LAB BLOOD ORDERABLES Fin al Result [facility] [address] Department [place] [address] * Differential, auto (04/08/2025 3:16 PM CDT) Pathologist [facility] Neutrophil abs 5.06 1.50 - 6.50 K/cumm Imm gran abs 0.08 0.00 - 0.10 K/cumm [facility] Lymphocyte abs 2.68 0.80 - 3.30 K/cumm [facility] Monocyte abs 0.61 0.20 - 0.80 K/cumm [facility] Eosinophil abs 0.14 0.00 - 0.50 K/cumm [facility] Basophil abs 0.07 0.00 - 0.10 K/cumm [facility] Neutrophil pct 58.6 % [facility] Comment: Interpretive Data Percent cell count reference ranges are not reported, since discordance with absolute values may lead to misinterpretation of CBC data. Current Interpretive Data was last revised on 2017. Imm gran pct 0.9 % [facility] Comment: Interpretive Data Percent cell count reference ranges are not reported, since discordance with absolute values may lead to misinterpretation of CBC data. Current Interpretive Data was last revised on 2017. Lymphocyte pct 31.0 % [facility] Comment: Interpretive Data Percent cell count reference ranges are not reported, since discordance with absolute values may lead to misinterpretation of CBC data. Current Interpretive Data was last revised on 2017. Monocyte pct 7.1 % [facility] Comment: Interpretive Data Percent cell count reference ranges are not reported, since discordance with absolute values may lead to misinterpretation of CBC data. Current Interpretive Data was last revised on 2017. Eosinophil pct 1.6 % [facility] Comment: Interpretive Data Percent cell count reference ranges are not reported, since discordance with absolute values may lead to misinterpretation of CBC data. Current Interpretive Data was last revised on 2017. Basophil pct 0.8 % [facility] Comment: Interpretive Data Percent cell count reference ranges are not reported, since discordance with absolute values may lead to misinterpretation of CBC data. Current Interpretive Data was last revised on 2017. Blood 04/08/2025 3:16 PM CDT 04/08/2025 3:22 PM CDT us Saba Tapia MD LAB BLOOD ORDERABLES Fin al Result [facility] [address] [facility] Department [place] [address] * (ABNORMAL) CBC with auto differential (04/08/2025 3:16 PM CDT) WBC 8.64 3.80 - 9.90 K/cumm Hgb 15.6 13.0 - 17.5 g/dL [facility] Hct 44.3 38.9 - 50.3 % [facility] Plt 221 150 - 400 K/cumm [facility] MPV 9.0(L) 9.1 - 12.3 fL [facility] RBC 4.89 4.30 - 5.80 M/cumm [facility] MCV 90.6 81.3 - 96.4 fL [facility] MCH 31.9 27.1 - 33.3 pg [facility] MCHC 35.2 32.3 - 35.7 g/dL [facility] RDW CV 13.2 11.1 - 14.9 % [facility] RDW SD 42.9 35.7 - 48.1 fL [facility] Blood 04/08/2025 3:16 PM CDT 04/08/2025 3:22 PM CDT us Saba Tapia MD LAB BLOOD ORDERABLES Fin al Result Performing Organization Address City/State/[facility] Co de Phone Number [facility] [address] Department [place] [address] * Comprehensive metabolic panel (04/08/2025 3:16 PM CDT) Sodium 137 135 - 145 mmol/L Potassium, pl 4.1 3.3 - 4.9 mmol/L [facility] Chloride 101 97 - 110 mmol/L [facility] CO2 23 22 - 32 mmol/L [facility] Anion gap 13 2 - 15 mmol/L [facility] BUN 12 6 - 25 mg/dL [facility] Creatinine 0.90 0.80 - 1.30 mg/dL [facility] Glucose 88 70 - 199 mg/dL [facility] Comment: Interpretive Data Fasting glucose >/= [...] classification and Diagnosis of Diabetes Diabetes Care 2022; 46: S19-S40. Current interpretive data was last revised 2022. Calcium 10.1 8.5 - 10.3 mg/dL [facility] Bilirubin, total 0.3 0.1 - 1.2 mg/dL [facility] Protein, pl 7.1 6.5 - 8.5 g/dL [facility] Albumin 4.3 3.5 - 5.0 g/dL [facility] Alk phos 52 40 - 130 Units/L [facility] ALT 28 7 - 55 Units/L [facility] AST 20 10 - 50 Units/L [facility] Comment:Hemolyzed result may be falsely elevated. Blood 04/08/2025 3:16 PM CDT 04/08/2025 3:22 PM CDT Saba Tapia MD LAB BLOOD ORDERABLES Fin al Result Performing Organization Address [facility]/ZIP Co de Phone Number [facility] 2 [facility] Department of Moment [place], [place] [id number] * Troponin T high-sensitivity 2-hour (03/12/2025 6:32 PM CDT) Trop T hs <6 <=22 ng/L Comment: Interpretive Data For further hscTnT resources including the diagnostic algorithm and an aid in interpretation, copy and paste this link: https://nrl.testcatalog.org/show/hsTrop Current Interpretive Data last revised 2020. Trop T hs delta 0 ng/L [facility] Trop T hs interp Insignificant [facility] Blood 03/12/2025 6:32 PM CDT 03/12/2025 6:34 PM CDT Son Rondon NP LAB BLOOD ORDERABLES Fin al Result Performing Organization Address [facility]/ZIP Co de Phone Number [facility] [address] [facility] Department of Moment [place], [place] [id number] * Troponin T high-sensitivity series (baseline, 2hr, 4hr, 6hr) (03/12/2025 4:30 PM CDT) Trop T hs <6 <=22 ng/L Comment: Interpretive Data For further hscTnT resources including the diagnostic algorithm and an aid in interpretation, copy and paste this link: https://nrl.testcatalog.org/show/hsTrop Current Interpretive Data last revised 2020. Blood 03/12/2025 4:30 PM CDT 03/12/2025 4:33 PM CDT Son Rondon ROTOFORMER BACKTENDER LAB BLOOD ORDERABLES Fin al Result Performing Organization Address City/State/[facility] Co de Phone Number [facility] [address] [facility] Department [place] [address] * eGFR (03/12/2025 4:30 PM CDT) eGFR [...] NP LAB BLOOD ORDERABLES Fin al Result [facility] [address] [facility] Department [place] [address] * (ABNORMAL) Differential, auto (03/12/2025 4:30 PM [...] on 2017. Basophil pct 0.4 % [facility] Comment: Interpretive Data Percent cell count reference ranges are not reported, since discordance with absolute values may lead to misinterpretation of CBC data. Current Interpretive Data was last revised on 2017. Blood 03/12/2025 4:30 PM CDT 03/12/2025 4:33 PM CDT Son Rondon NP LAB BLOOD ORDERABLES Fin al Result Performing Organization Address [facility] Co de Phone Number [facility] [address] [facility] [place] [address] * (ABNORMAL) CBC with auto differential (03/12/2025 4:30 PM CDT) WBC 7.02 3.80 - 9.90 K/cumm Hgb 15.2 13.0 - 17.5 g/dL [facility] Hct 42.9 38.9 - 50.3 % [facility] Plt 225 150 - 400 K/cumm [facility] MPV 8.8(L) 9.1 - 12.3 fL [facility] RBC 4.81 4.30 - 5.80 M/cumm [facility] MCV 89.2 81.3 - 96.4 fL [facility] MCH 31.6 27.1 - 33.3 pg [facility] MCHC 35.4 32.3 - 35.7 g/dL [facility] RDW CV 13.1 11.1 - 14.9 % [facility] RDW SD 42.8 35.7 - 48.1 fL [facility] Blood 03/12/2025 4:30 PM CDT 03/12/2025 4:33 PM CDT Son Rondon NP LAB BLOOD ORDERABLES Fin al Result Performing Organization Address [facility] Co de Phone Number [facility] [address] [facility] [place] [address] * Comprehensive metabolic panel (03/12/2025 4:30 PM CDT) Sodium 138 135 - 145 mmol/L Potassium, pl 4.4 3.3 - 4.9 mmol/L [facility] Chloride 103 97 - 110 mmol/L [facility] CO2 22 22 - 32 mmol/L [facility] Anion gap 13 2 - 15 mmol/L [facility] BUN 13 6 - 25 mg/dL [facility] Creatinine 0.90 0.80 - 1.30 mg/dL [facility] Glucose 143 70 - 199 mg/dL [facility] Comment: Interpretive Data Fasting glucose >/= 126 [...] PW Albumin 4.5 3.5 - 5.0 g/dL [facility] Alk phos 43 40 - 130 Units/L [facility] ALT 27 7 - 55 Units/L [facility] AST 17 10 - 50 Units/L [facility] Blood 03/12/2025 4:30 PM CDT 03/12/2025 4:33 PM CDT us Son Rondon NP LAB BLOOD ORDERABLES Fin al Result [facility] [address] [facility] Department [place] [address] * XR Chest PA Lateral 2 Views [...] Esteban Flores M.D., MPH us Son Rondon ROTOFORMER BACKTENDER IMG XR PROCEDURES Final Result * ECG 12 lead (03/12/2025 3:41 PM CDT) 03/12/2025 3:41 PM CDT Narrative [facility] - 03/12/2025 4:23 PM CDT Vent Rate: 121 bpm RR Interval: 492 msec ME Interval: 124 msec QRS Duration: 90 msec QT Interval: 302 msec QTC Interval: 374 msec P-R-T Oneill: 45 - 16 - 56 degrees IMPRESSION: SINUS TACHYCARDIA ABNORMAL RHYTHM ECG Electronically Signed By: Tapan Verduzco DO, [facility] us Bj Leger DO ECG ORDERABLES Final Re sult [facility] * ME AN ELECTIVE ENDOTRACHEAL AIRWAY, ME AN PROCEDURE PLACEHOLDER (03/06/2025 12:16 PM CDT) [...] tape Number of attempts: 1 David Marcos PACKAGE DRIER ANESTHESIA ORDERABLE S Final Result from Last 3 Months Insurance [facility] [place] [address] [facility] Care Teams Flame Burner Relationship Specialty Start Date End Date Unknown, Notinfile PCP - General 04/30/25
--- OUTSIDE RECORDS SUMMARY | 2025-05-19 11:34 | XMS_ITS | Patient Health Record ---
Author Organization [facility] Address [facility] [place] [address] Care Team Providers Care Servicenow Administrator Name Role Phone Dr. Doris Chi Primary Care Provider [phone] Allergies Allergen (clinical drug ingredient) Drug/Non Drug Allergy documented on EMR Reaction Allergy Type Onset Date Status Penicillin Unknown Drug Allergy 03/29/2020 Activ e Reason For Referral No Information Medications Medication SIG (Take, Route, Frequency, Duration) Notes Start Date End Date Status Loreev XR 1 MG 1 capsule in the morning Orally twice a day; Duration: 30 days 05/11/2025 Active Gabapentin 100 MG 1 capsule Orally 3 times a day; Duration: 90 days 05/08/2025 Active dexAMETHasone 0.5 MG/5ML 10 mL Orally twice a day; Duration: 30 days As needed for vertigo 05/11/2025 Active Loreev XR 1 MG 1 capsule in the morning Orally Once a day; Duration: 30 days pt currently on lorazepam 1 mg q4-6 hours, would rather get this approved if able.use coupon if able. please fill before weekend. 04/28/2025 Active PARoxetine HCl 30mg TAKE 1 TABLET DAILY ORAL 05/02/2014 Unknown Propranolol HCl 10 MG 1 tablet Orally twice a day Active Mirtazapine 45 MG 1 tablet on the tongue and allow to dissolve at bedtime Orally Once a day Active Mirtazapine 30 MG 2 tablet at bedtime Orally Once a day; Duration: 30 days he has been on 60 mg before 05/11/2025 Active Immunizations Vaccine Route Administration Date Status Comme nts Benaissance-QuantaSol COVID-19 Vaccine Unknown 10/27/2020 Adm inistered Pfizer-BioNTech COVID-19 Vaccine Unknown 11/24/2020 Adm inistered Pfizer-BioNTech COVID-19 Vaccine Unknown 08/05/2021 Adm inistered Pfizer-BioNTech Covid-19 Biv alent Booster Unknown 08/06/2022 Administered COVID Yury-Suc (PFR 12+) Unknown 01/04/2022 Administere d Comirnaty Covid-19 Vaccine, mRNA (2023-2024Formula) Unknown 09/10/2023 Administered Comirnaty Covid-19 Vaccine, mRNA (2023-2024Formula) Unknown 06/05/2024 Administered Social History Tobacco Use: Social History Observation Description Date Details (start date - stop date) Former Smoker NA - NA Sex Assigned At : Social History Observation Description Sex Assigned At Male Tobacco Use/Smoking Question Answer Notes Smoking Status: former smoker How long has it been since you last smoked? 1-3 months Alcohol Screen (Audit-C) Question Answer Notes Did you have a drink containing alcohol in the p ast year? No Tobacco use other than smoking: Question Answer Notes Are you an other tobacco user? No Problems Problem Type SNOMED Code ICD Code Onset Dates Problem Status W/U Status Risk Notes Problem Overweight (036930663) Overweight (BMI 25.0-29.9) (E66.3) Active confirmed Problem Mixed hyperlipidemia (217836424) Mixed hyperlipidemia (E78.2) 09/23/19 25 Active confirmed Problem Insomnia (210885052) Insomnia (G47.00) 09/23/19 25 Active confirmed Problem Bilateral tinnitus (0376973795278) Tinnitus of both ears (H93.13) 09/23/19 25 Active confirmed Problem Generalized anxiety disorder (41047806) JANELL (generalized anxiety disorder) (F41.1) 09/23/19 25 Active confirmed Problem Smoker (87983657) Smoker (F17.200) 25 Active confirmed Problem Major depressive disorder (163410195) MDD (major depressive disorder) (F32.9) 09/23/19 25 Active confirmed Problem Sinus tachycardia (56731465) Sinus tachycardia (R00.0) 09/23/19 25 Active confirmed Problem Supraventricular tachycardia (4226321) SVT (supraventricular tachycardia) (I47.10) 01/03/20 25 Active confirmed Problem Nondependent alcohol abuse in remission (026752974) Alcohol use disorder, mild, 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) 09/23/19 25 Active confirmed Problem Cluster headache syndrome (736456260) Cluster headaches (G44.009) 09/23/19 25 Active confirmed Vital Signs Heart Rate 107 /min 05/11/2025 Temperature 97.9 degrees Fahrenheit 05/11/2025 Respiratory Rate 14 /min 05/11/2025 Oximetry 99 % 05/11/2025 Blood pressure diastolic 78 mm Hg 05/11/2025 Height 72.8 in 05/11/2025 Blood pressure systolic 110 mm Hg 05/11/2025 Weight 225.8 lbs 05/11/2025 BMI 29.95 kg/m2 05/11/2025 Encounters Encounter Location Date Provider Diagnosis [facility] [address] [place] [phone] 04/27/2025 Doris Chi Encounter for genera l adult medical examination with abnormal findings Z00.01 ; Overweight (BMI 25.0-29.9) E66.3 ; Mixed hyperlipidemia E78.2 ; MDD (major depressive disorder) F32.9 ; JANELL (generalized anxiety disorder) F41.1 ; Tinnitus of both ears H93.13 and Vertigo R42 [facility] [address] [place] [address] 05/11/2025 Doris Chi Mixed hyperlipidemia E78.2 ; Tinnitus of both ears H93.13 ; JANELL (generalized anxiety disorder) F41.1 ; MDD (major depressive disorder) F32.9 and Vertigo R42 [facility] [address] [place] [address] 05/19/2025 Doris Chi [facility] [address] [place] [address] 04/26/2025 Doris hCi [facility] [address] [place] [address] 04/28/2025 Doris Chi [facility] [address] [place] [address] 05/08/2025 Doris Chi Neuropathic pain M79 .2 [facility] [address] [place] [address] 05/12/2025 Doris Chi Vertigo R42 Assessments Encounter Date Diagnosis (ICD Code) Assessment Notes Treatment Notes Treatment Clinical Notes Section Notes 04/27/2025 Overweight (BMI 25.0-29.9) (ICD-10 - E66.3) 05/08/2025 Neuropathic pain (ICD-10 - M79.2) 05/11/2025 Mixed hyperlipidemia (ICD-10 - E78.2) 05/11/2025 Tinnitus of both ears (ICD-10 - H93.13) 04/27/2025 Encounter for general adult medical examination with abnormal findings (ICD-10 - Z00.01) 05/12/2025 Vertigo (ICD-10 - R42) 05/11/2025 JANELL (generalized anxiety disorder) (ICD-10 - F41.1) 04/27/2025 Mixed hyperlipidemia (ICD-10 - E78.2) 04/27/2025 MDD (major depressive disorder) (ICD-10 - F32.9) 05/11/2025 MDD (major depressive disorder) (ICD-10 - F32.9) 04/27/2025 JANELL (generalized anxiety disorder) (ICD-10 - F41.1) 05/11/2025 Vertigo (ICD-10 - R42) 04/27/2025 Tinnitus of both ears (ICD-10 - H93.13) 04/27/2025 Vertigo (ICD-10 - R42) 04/27/2025 Other Stop the diltiazem. Continue metoprolol tartrate 50 mg twice daily. Restart betahistine Follow up in 2 weeks. New instructions: -Start taking eliquis 5 mg twice daily indefinitely. Will always give you samples, this drug is most important at this time to take every day. -Will send fill for lorazepam 1 mg q4 hours for tinnitus and vertigo. has been off warfarin for 1 day, last lovenox shot was yesterday. 05/11/2025 Other Increase mirtazepine to 60 mg once daily. Continue metoprolol tartrate 50 mg twice daily. continue betahistine Continue eliquis 5 mg twice daily. Take 10 mls of dexamethasone twice day as needed on bad days for tinnitus. Start lorazepam XR/loreev 1 mg twice a day in place of lorazepam. Do not take any short acting with this. Follow up in 6 weeks/after [facility] Plan Of Treatment No Information Insurance Providers Payer Name Payer Address Payer Phone Subscriber Number Group Number Insured Name Patient Relationship to Insured Coverage Start Date Coverage End Date [facility] [address] [place] [phone] [id number] Demarco Aceves Self - patient is the insured Medical (General) History Medical History History ICD Code Colonoscopy: Yes Do you have any history of t he following?: Alcohol Abuse,Allergies (seasonal),Depression,Insomnia,Pulmonary Embolism,Sleep Apnea
[2025-05-19 11:35] VITALS: BP 150/90; PULSE 100; RESP 14; TEMP 36.6; O2SAT 98
--- NOTE | 2025-05-19 12:24 | ED.EAR ---
HPI - Ear Problem General Chief complaint: Ear Stated complaint: tinnitus bilat ears Time Seen by Provider: 05/19/25 12:04 Source: patient Mode of arrival: ambulatory Limitations: no limitations History of Present Illness HPI Narrative: 54 years old white male came to the ED with hearing screening sound in both ears for the last 9 and half month, had right ear injection yesterday by ENT specialist at [place], scheduled for another injection next week. Patient been followed by ENT specialist numerous of time in the last 9 and half month. Patient denies any fever, chills, nausea, vomiting, headache, sore throat or upper respiratory symptoms. Related Data Allergies Allergy/AdvReac Type Severity Reaction Status Date / Time Penicillins Allergy Swelling Verified 05/19/25 11:38 Review of Systems Review of Systems: All systems reviewed & are unremarkable except as noted in HPI and below Exam Narrative: General appearance: Well-developed, well-nourished Skin: Normal color Head: Normocephalic, nontraumatic Eyes: Clear conjunctiva ENT: Oropharynx normal, ears normal, nose normal Neck: Supple, nontender Chest and respiratory: Airway patent, no respiratory distress, no accessory muscle use Heart: Regular rate/rhythm Abdomen: Soft, nontender, no organomegaly, quiet bowel sounds Vascular: Normal peripheral pulses, normal capillary refill. Musculoskeletal: Normal range of motion, nontender back Neurologic: Alert and oriented ?3, TRAINING CONSULTANT is normal as tested, no gross motor deficit Course Vital Signs Vital signs: Vital Signs Temperature 36.6 C 05/19/25 11:35 Pulse Rate 100 05/19/25 11:35 Respiratory Rate 14 05/19/25 11:35 Blood Pressure 150/90 H 05/19/25 11:35 Pulse Oximetry 98 05/19/25 11:35 Oxygen Delivery Room Air 05/19/25 11:35 Temperature 36.6 C 05/19/25 11:35 Pulse Rate 100 05/19/25 11:35 Respiratory Rate 14 05/19/25 11:35 Blood Pressure 150/90 H 05/19/25 11:35 Pulse Oximetry 98 05/19/25 11:35 Oxygen Delivery Room Air 05/19/25 11:35 Medical Decision Making MDM Narrative Medical decision making narrative: History of tinnitus 9 and half month, Been seen by specialist numerous of time in the last few months. Differential diagnosis include tetanus of unknown etiology, hearing loss, ear wax buildup, vascular problems, neurological disorder. Labs or imaging are not recommended at this time specially patient been seen by specialists for long time. Discharged on Medrol Dosepak and follow up with ENT as soon as possible Differential Diagnosis Differential Diagnosis: As above Vital Signs Vital Signs: Vital Signs Temperature 36.6 C 05/19/25 11:35 Pulse Rate 100 05/19/25 11:35 Respiratory Rate 14 05/19/25 11:35 Blood Pressure 150/90 H 05/19/25 11:35 Pulse Oximetry 98 05/19/25 11:35 Oxygen Delivery Room Air 05/19/25 11:35 Temperature 36.6 C 05/19/25 11:35 Pulse Rate 100 05/19/25 11:35 Respiratory Rate 14 05/19/25 11:35 Blood Pressure 150/90 H 05/19/25 11:35 Pulse Oximetry 98 05/19/25 11:35 Oxygen Delivery Room Air 05/19/25 11:35 Critical Care Time Critical Care Time Critical Care Time: No Discharge Plan Discharge Clinical Impression: Tinnitus, bilateral Patient Disposition: Home Condition: Stable Instructions: Tinnitus (ED) Additional Instructions: Return if symptoms are worsening , call your ENT specialist as soon as possible for further management, take Tylenol as as needed for aches and pain, continue home medications. Patient Language: Comoran Prescriptions: New prednisone 20 mg tablet 40 mg PO DAILY 5 Days Qty: 10 0RF No Action metoclopramide HCl [Reglan] 10 mg tablet 10 mg PO Q6H PRN (Reason: headache) Qty: 20 0RF metoclopramide HCl [Reglan] 10 mg tablet 10 mg PO Q6H PRN (Reason: nausea and vomiting) Qty: 14 0RF lorazepam [Ativan] 0.5 mg tablet 0.5 mg PO BID PRN (Reason: anxiety) Qty: 14 0RF Follow-up/Referrals: UNKNOWN,DOCTOR [Primary Care Provider]
--- OUTSIDE RECORDS SUMMARY | 2025-05-19 12:38 | XMS_ITS | Clinical Summary ---
Author Organization [facility] Address [facility] [place] [address] Care Team Providers Care Chart Changer Name Role Phone Unknown, Notinfile Primary Care [...] Type Department Care Team Description 05/17/2025 Telephone [facility] Medicine Otolaryngology [address] [place] [address] Elle Meehan MS 05/14/2025 8:28 AM CDT - 05/14/2025 10:34 AM CDT Emergency [facility] Emergency Department [address] [place] [id number] Ramez Lim MD Tinnitus of both ears (Primary Dx); Benzodiazepine dependence (HCC) Discharge Disposition: Discharge to home or self care 05/07/2025 10:48 AM CDT - 05/07/2025 2:07 PM CDT Emergency [facility] Emergency Department [address] [place] [address] Santos Kerr Jr., MD Tinnitus of both ears (Primary Dx); Acute nonintractable headache, unspecified headache type; Hypertension, unspecified type Discharge Disposition: Discharge to home or self care 05/05/2025 8:13 AM CDT - 05/05/2025 10:11 AM CDT Emergency [facility] Emergency Department [address] [place] [address] Saba Tapia MD Tinnitus of both ears (Primary Dx); Benzodiazepine dependence (HCC) Discharge Disposition: Discharge to home or self care 04/30/2025 3:23 PM CDT - 04/30/2025 5:00 PM CDT Emergency [facility] Emergency Department [address] [place] [id number] Ivelisse Ramon MD Acute otitis externa of right ear, unspecified type (Primary Dx); Foreign body of right ear, initial encounter; Tinnitus of both ears Discharge Disposition: Discharge to home or self care 04/21/2025 3:01 PM CDT - 04/21/2025 9:32 PM CDT Emergency [facility] Emergency Department [address] [place] [address] Lopez Metz MD Tinnitus of both ears (Primary Dx); Acute intractable headache, unspecified headache type Discharge Disposition: Discharge to home or self care 04/15/2025 1:48 PM CDT - 04/15/2025 7:06 PM CDT Emergency [facility] Emergency Department [address] [place] [address] Nela Abad MD Paulsen, Robbie Ellen, MD Anxiety (Primary Dx); Tinnitus of both ears; Other migraine without status migrainosus, not intractable; Other acute pulmonary embolism without acute cor pulmonale (HCC) Discharge Disposition: Discharge to home or self care 04/12/2025 8:15 PM CDT - 04/13/2025 1:00 AM CDT Emergency [facility] Emergency Department [address] [place] [address] Nela Abad MD Tinnitus of both ears (Primary Dx); Other migraine without status migrainosus, not intractable Discharge Disposition: Discharge to home or self care 04/10/2025 4:57 PM CDT - 04/10/2025 6:54 PM CDT Emergency [facility] Emergency Department [address] [place] [address] Discharge Disposition: Left without being seen 04/08/2025 1:41 PM CDT - 04/08/2025 5:20 PM CDT Emergency [facility] Emergency Department [address] [place] [address] Saba Tapia MD Acute intractable headache, unspecified headache type (Primary Dx) Discharge Disposition: Discharge to home or self care 04/06/2025 5:35 AM CDT - 04/06/2025 7:56 AM CDT Emergency [facility] Emergency Department [address] [place] [address] Franklyn Mclain MD Thomas, Jenna Marie, MD Tinnitus of both ears (Primary Dx); Other migraine with status migrainosus, not intractable Discharge Disposition: Discharge to home or self care 04/03/2025 Telephone [facility] Medicine Otolaryngology [address] [place] [address] Elle Meehan, 03/23/2025 11:55 PM CDT - 03/24/2025 3:08 AM CDT Emergency [facility] Emergency Department [address] [place] [address] Nina Bejarano MD Anxiety (Primary Dx); Tinnitus of both ears Discharge Disposition: Discharge to home or self care 03/22/2025 Orders Only [facility] [address] [facility] [address] [place] [address] Lasha Patel PA Primary osteoarthritis involving multiple joints (Primary Dx); Chronic pain syndrome 03/15/2025 9:13 AM CDT - 03/15/2025 10:56 AM CDT Emergency [facility] Emergency Department [address] [place] [address] Bj Leger DO Tinnitus, unspecified laterality (Primary Dx); Anxiety Discharge Disposition: Discharge to home or self care 03/12/2025 3:40 PM CDT - 03/12/2025 7:29 PM CDT Emergency [facility] Emergency Department [address] [place] [address] Anxiety (Primary Dx) Discharge Disposition: Discharge to home or self care 03/12/2025 9:30 AM CDT - 03/12/2025 12:34 PM CDT Emergency [facility] Emergency Department [address] [place] [address] Ken Monreal MD Tinnitus of both ears (Primary Dx) Discharge Disposition: Discharge to home or self care 03/06/2025 12:00 PM CDT - 03/06/2025 1:05 PM CDT Surgery [facility] Operating Room [address] [place] [address] Santos Hart MD SEPTOPLASTY AND BILATERAL INFERIOR TURBINATE REDUCTION [15594 (CPT )] 03/06/2025 11:52 AM CDT Anesthesia Event [facility] Operating Room [address] [place] [address] Ivelisse Benton DO Riordan, Isabella Rossi, MD 03/06/2025 9:56 AM CDT - 03/06/2025 2:50 PM CDT Hospital Encounter [facility] Operating Room [address] [place] [address] Santos Hart MD Discharge Disposition: Discharge to home or self care from Last 3 Months Surgical History Surgery Date Site/Laterality Comments NASAL SEPTUM SURGERY 03/06/2025 Face/Bilateral Procedure: SEPTOPLASTY AND BILATERAL INFERIOR TURBINATE REDUCTION; Surgeon: Santos Hart MD; Location: [facility] OPERATING ROOM; Service: Otolaryngology; Laterality: [...] on file 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 73 m2 [...] MD LAB BLOOD ORDERABLES Final Resul t [facility] [address] [facility] [place] [address] * (ABNORMAL) Differential, auto (04/21/2025 4:20 PM CDT) Pathologist [facility] Neutrophil abs 8.60(H) 1.50 - 6.50 K/cumm Imm gran abs 0.13(H) 0.00 - 0.10 K/cumm [facility] PW Lymphocyte abs 1.69 0.80 - 3.30 K/cumm [facility] PW Monocyte abs 0.39 0.20 - 0.80 K/cumm [facility] Eosinophil abs 0.01 0.00 - 0.50 K/cumm [facility] PW Basophil abs 0.03 0.00 - 0.10 K/cumm [facility] Neutrophil pct 79.2 % [facility] Comment: Interpretive Data Percent cell count reference ranges are not reported, since discordance with absolute values may lead to misinterpretation of CBC data. Current Interpretive Data was last revised on 2017. Imm gran pct 1.2 % [facility] Comment: Interpretive Data Percent cell count reference ranges are not reported, since discordance with absolute values may lead to misinterpretation of CBC data. Current Interpretive Data was last revised on 2017. Lymphocyte pct 15.6 % [facility] Comment: Interpretive Data Percent cell count reference ranges are not reported, since discordance with absolute values may lead to misinterpretation of CBC data. Current Interpretive Data was last revised on 2017. Monocyte pct 3.6 % [facility] Comment: Interpretive Data Percent cell count reference ranges are not reported, since discordance with absolute values may lead to misinterpretation of CBC data. Current Interpretive Data was last revised on 2017. Eosinophil pct 0.1 % [facility] Comment: Interpretive Data Percent cell count reference ranges are not reported, since discordance with absolute values may lead to misinterpretation of CBC data. Current Interpretive Data was last revised on 2017. Basophil pct 0.3 % [facility] Comment: Interpretive Data Percent cell count reference ranges are not reported, since discordance with absolute values may lead to misinterpretation of CBC data. Current Interpretive Data was last revised on 2017. Blood 04/21/2025 4:20 PM CDT 04/21/2025 4:24 PM CDT us Lopez Metz MD LAB BLOOD ORDERABLES Final Resul t [facility] [address] [facility] Department [place] [address] * (ABNORMAL) CBC with auto differential (04/21/2025 4:20 PM CDT) WBC 10.85(H) 3.80 - 9.90 K/cumm Hgb 14.5 13.0 - 17.5 g/dL [facility] Hct 41.7 38.9 - 50.3 % [facility] Plt 219 150 - 400 K/cumm [facility] MPV 9.1 9.1 - 12.3 fL [facility] RBC 4.68 4.30 - 5.80 M/cumm [facility] MCV 89.1 81.3 - 96.4 fL [facility] MCH 31.0 27.1 - 33.3 pg [facility] MCHC 34.8 32.3 - 35.7 g/dL [facility] RDW CV 13.2 11.1 - 14.9 % [facility] RDW SD 42.6 35.7 - 48.1 fL [facility] Blood 04/21/2025 4:20 PM CDT 04/21/2025 4:24 PM CDT us Lopez Metz MD LAB BLOOD ORDERABLES Final Resul t Performing Organization Address City/[facility] Co de Phone Number [facility] [address] [facility] [place] [address] * Magnesium (04/21/2025 4:20 PM CDT) Pathologist [facility] Magnesium 2.2 1.4 - 2.5 mg/dL Blood 04/21/2025 4:20 PM CDT 04/21/2025 4:24 PM CDT us Lopez Metz MD LAB BLOOD ORDERABLES Final Resul t Performing Organization Address City/[facility] Co de Phone Number [facility] [address] [facility] [place] [address] * (ABNORMAL) Comprehensive metabolic panel (04/21/2025 4:20 PM CDT) Pathologist [facility] Sodium 138 135 - 145 mmol/L Potassium, pl 4.2 3.3 - 4.9 mmol/L [facility] Chloride 103 97 - 110 mmol/L [facility] CO2 22 22 - 32 mmol/L [facility] Anion gap 13 2 - 15 mmol/L [facility] BUN 21 6 - 25 mg/dL [facility] Creatinine 0.90 0.80 - 1.30 mg/dL [facility] Glucose 109 70 - 199 mg/dL [facility] Comment: Interpretive Data Fasting glucose >/= 126 [...] Calcium 9.8 8.5 - 10.3 mg/dL [facility] Bilirubin, total 0.3 0.1 - 1.2 mg/dL [facility] Protein, pl 6.9 6.5 - 8.5 g/dL [facility] PW Albumin 4.3 3.5 - 5.0 g/dL [facility] Alk phos 40 40 - 130 Units/L [facility] ALT 80(H) 7 - 55 Units/L [facility] AST 41 10 - 50 Units/L [facility] Blood 04/21/2025 4:20 PM CDT 04/21/2025 4:24 PM CDT us Lopez Metz MD LAB BLOOD ORDERABLES Final Resul t Performing Organization Address City/State/[facility] Co de Phone Number [facility] [address] [facility] [place] [address] * Troponin T high-sensitivity 2-hour (04/15/2025 4:34 [...] LAB BLOOD ORDERA BLES Final Result [facility] [address] Department [place] [address] * Pro B-type natriuretic peptide (04/15/2025 4:34 [...] [address] [place] [address] * CT Chest PE (CTA) W Contrast [...] sec INR 1.11 0.90 - 1.20 [facility] Comment: Interpretive data Oral anticoagulant therapeutic ranges: [...] ORDERABLES Fin al Result Performing Organization Address City/[facility]/ZIP Co de Phone Number [facility] 2 [facility] Department [place] [address] * (ABNORMAL) D-dimer, quantitative (04/15/2025 3:17 PM [...] LAB BLOOD ORDERA BLES Final Result [facility] 2 [facility] Department [place] [address] * XR Chest 1 Vw Portable (If [...] MD LAB BLOOD ORDERA BLES Final Result [facility] [address] [facility] Department [place] [address] * eGFR (04/15/2025 1:57 PM CDT) [...] MD LAB BLOOD ORDERA BLES Final Result [facility] [address] [facility] Department of Laboratories [place], [place] [id number] * (ABNORMAL) Differential, auto (04/15/2025 1:57 PM CDT) Neutrophil abs 5.37 1.50 - 6.50 K/cumm Imm gran abs 0.06 0.00 - 0.10 K/cumm [facility] Lymphocyte abs 0.80 0.80 - 3.30 K/cumm [facility] Monocyte abs 0.04(L) 0.20 - 0.80 K/cumm [facility] Eosinophil abs 0.00 0.00 - 0.50 K/cumm [facility] Basophil abs 0.02 0.00 - 0.10 K/cumm [facility] Neutrophil pct 85.4 % [facility] Comment: Interpretive Data Percent cell count reference ranges are not reported, since discordance with absolute values may lead to misinterpretation of CBC data. Current Interpretive Data was last revised on 2017. Imm gran pct 1.0 % [facility] Comment: Interpretive Data Percent cell count reference [...] MD LAB BLOOD ORDERA BLES Final Result [facility] [address] [facility] Department [place] [address] * (ABNORMAL) CBC with auto differential (04/15/2025 1:57 PM CDT) WBC 6.29 3.80 - 9.90 K/cumm Hgb 15.6 13.0 - 17.5 g/dL [facility] Hct 45.3 38.9 - 50.3 % [facility] Plt 217 150 - 400 K/cumm [facility] MPV 8.8(L) 9.1 - 12.3 fL [facility] RBC 5.05 4.30 - 5.80 M/cumm [facility] MCV 89.7 81.3 - 96.4 fL [facility] MCH 30.9 27.1 - 33.3 pg [facility] MCHC 34.4 32.3 - 35.7 g/dL [facility] RDW CV 12.8 11.1 - 14.9 % [facility] RDW SD 41.8 35.7 - 48.1 fL [facility] Blood 04/15/2025 1:57 PM CDT 04/15/2025 2:08 PM CDT us Nela Abad MD LAB BLOOD ORDERA BLES Final Result [facility] [address] Department [place] [address] * (ABNORMAL) Comprehensive metabolic panel (04/15/2025 1:57 PM CDT) Sodium 137 135 - 145 mmol/L Potassium, pl 4.4 3.3 - 4.9 mmol/L [facility] Chloride 104 97 - 110 mmol/L [facility] CO2 20(L) 22 - 32 mmol/L [facility] Anion gap 13 2 - 15 mmol/L [facility] BUN 14 6 - 25 mg/dL [facility] Creatinine 1.00 0.80 - 1.30 mg/dL [facility] Glucose 137 70 - 199 mg/dL [facility] Comment: Interpretive Data Fasting glucose >/= 126 [...] 2022. Calcium 9.3 8.5 - 10.3 mg/dL [facility] Bilirubin, total 0.4 0.1 - 1.2 mg/dL [...] ORDERA BLES Final Result Performing Organization Address City/[facility] Co de Phone Number [facility] [address] [facility] [employer] [place], [place] [id number] * ECG 12 lead (04/15/2025 1:45 PM CDT) 04/15/2025 1:45 PM CDT Narrative [facility] - 04/15/2025 2:27 PM CDT Vent Rate: 133 bpm RR Interval: 451 msec [place] Interval: 135 msec QRS Duration: 96 msec QT Interval: 302 msec QTC Interval: 380 msec P-R-T [place]: 44 - -2 - 59 degrees IMPRESSION: SINUS TACHYCARDIA NONSPECIFIC T-WAVE ABNORMALITY ABNORMAL RHYTHM ECG Electronically Signed By: Tapan Verduzco, , [facility] Nela Abad MD ECG ORDERABLES Final Result Performing Organization Address [facility] Co de Phone Number [facility] * Magnesium (04/12/2025 11:58 PM CDT) Magnesium 2.0 1.4 - 2.5 mg/dL Blood 04/12/2025 11:5 8 PM CDT 04/13/2025 12:12 AM CDT Nela Abad MD LAB BLOOD ORDERA BLES Final Result Performing Organization Address City/[facility] Co de Phone Number [facility] [address] [facility] [place] [address] * eGFR (04/08/2025 3:16 PM CDT) [facility] eGFR >90 >=60 mL/min/1. 73 m2 Comment: [...] MD LAB BLOOD ORDERABLES Fin al Result [facility] [address] Department [place] [address] * Differential, auto (04/08/2025 3:16 PM CDT) Pathologist [facility] Neutrophil abs 5.06 1.50 - 6.50 K/cumm Imm gran abs 0.08 0.00 - 0.10 K/cumm [facility] Lymphocyte abs 2.68 0.80 - 3.30 K/cumm [facility] Monocyte abs 0.61 0.20 - 0.80 K/cumm [facility] Eosinophil abs 0.14 0.00 - 0.50 K/cumm [facility] Basophil abs 0.07 0.00 - 0.10 K/cumm [facility] Neutrophil pct 58.6 % [facility] Comment: Interpretive Data Percent cell count reference ranges are not reported, since discordance with absolute values may lead to misinterpretation of CBC data. Current Interpretive Data was last revised on 2017. Imm gran pct 0.9 % [facility] Comment: Interpretive Data Percent cell count reference ranges are not reported, since discordance with absolute values may lead to misinterpretation of CBC data. Current Interpretive Data was last revised on 2017. Lymphocyte pct 31.0 % [facility] Comment: Interpretive Data Percent cell count reference ranges are not reported, since discordance with absolute values may lead to misinterpretation of CBC data. Current Interpretive Data was last revised on 2017. Monocyte pct 7.1 % [facility] Comment: Interpretive Data Percent cell count reference ranges are not reported, since discordance with absolute values may lead to misinterpretation of CBC data. Current Interpretive Data was last revised on 2017. Eosinophil pct 1.6 % [facility] Comment: Interpretive Data Percent cell count reference ranges are not reported, since discordance with absolute values may lead to misinterpretation of CBC data. Current Interpretive Data was last revised on 2017. Basophil pct 0.8 % [facility] Comment: Interpretive Data Percent cell count reference ranges are not reported, since discordance with absolute values may lead to misinterpretation of CBC data. Current Interpretive Data was last revised on 2017. Blood 04/08/2025 3:16 PM CDT 04/08/2025 3:22 PM CDT us Saba Tapia MD LAB BLOOD ORDERABLES Fin al Result [facility] [address] [facility] Department [place] [address] * (ABNORMAL) CBC with auto differential (04/08/2025 3:16 PM CDT) WBC 8.64 3.80 - 9.90 K/cumm Hgb 15.6 13.0 - 17.5 g/dL [facility] Hct 44.3 38.9 - 50.3 % [facility] Plt 221 150 - 400 K/cumm [facility] MPV 9.0(L) 9.1 - 12.3 fL [facility] RBC 4.89 4.30 - 5.80 M/cumm [facility] MCV 90.6 81.3 - 96.4 fL [facility] MCH 31.9 27.1 - 33.3 pg [facility] MCHC 35.2 32.3 - 35.7 g/dL [facility] RDW CV 13.2 11.1 - 14.9 % [facility] RDW SD 42.9 35.7 - 48.1 fL [facility] Blood 04/08/2025 3:16 PM CDT 04/08/2025 3:22 PM CDT us Saba Tapia MD LAB BLOOD ORDERABLES Fin al Result Performing Organization Address City/State/[facility] Co de Phone Number [facility] [address] [place] [address] * Comprehensive metabolic panel (04/08/2025 3:16 PM CDT) Sodium 137 135 - 145 mmol/L Potassium, pl 4.1 3.3 - 4.9 mmol/L [facility] Chloride 101 97 - 110 mmol/L [facility] CO2 23 22 - 32 mmol/L [facility] Anion gap 13 2 - 15 mmol/L [facility] BUN 12 6 - 25 mg/dL [facility] Creatinine 0.90 0.80 - 1.30 mg/dL [facility] Glucose 88 70 - 199 mg/dL [facility] Comment: Interpretive Data Fasting glucose >/= 126 [...] 2022. Calcium 10.1 8.5 - 10.3 mg/dL [facility] Bilirubin, total 0.3 0.1 - 1.2 mg/dL [facility] PW Protein, pl 7.1 6.5 - 8.5 g/dL [facility] PW Albumin 4.3 3.5 - 5.0 g/dL [facility] Alk phos 52 40 - 130 Units/L [facility] PW ALT 28 7 - 55 Units/L [facility] PW AST 20 10 - 50 Units/L [facility] Comment:Hemolyzed result may be falsely elevated. Blood 04/08/2025 3:16 PM CDT 04/08/2025 3:22 PM CDT Saba Tapia MD LAB BLOOD ORDERABLES Fin al Result Performing Organization Address [facility]/ZIP Co de Phone Number [facility] 2 [facility] Department of [facility] [place], [place] [id number] * Troponin T high-sensitivity 2-hour (03/12/2025 6:32 PM CDT) Trop T hs <6 <=22 ng/L Comment: Interpretive Data For further hscTnT resources including the diagnostic algorithm and an aid in interpretation, copy and paste this link: https://nrl.testcatalog.org/show/hsTrop Current Interpretive Data last revised 2020. Trop T hs delta 0 ng/L [facility] Trop T hs interp Insignificant [facility] Blood 03/12/2025 6:32 PM CDT 03/12/2025 6:34 PM CDT Son Rondon NP LAB BLOOD ORDERABLES Fin al Result Performing Organization Address [facility]/ZIP Co de Phone Number [facility] [address] [facility] Department of [facility] [place], [place] [id number] * Troponin T high-sensitivity series (baseline, 2hr, 4hr, 6hr) (03/12/2025 4:30 PM CDT) Trop T hs <6 <=22 ng/L Comment: Interpretive Data For further hscTnT resources including the diagnostic algorithm and an aid in interpretation, copy and paste this link: https://nrl.testcatalog.org/show/hsTrop Current Interpretive Data last revised 2020. Blood 03/12/2025 4:30 PM CDT 03/12/2025 4:33 PM CDT Son Rondon PSYCHOLOGICAL OPERATIONS OFFICER LAB BLOOD ORDERABLES Fin al Result Performing Organization Address City/State/[facility] Co de Phone Number [facility] [address] [facility] [place] [address] * eGFR (03/12/2025 4:30 PM CDT) eGFR [...] NP LAB BLOOD ORDERABLES Fin al Result [facility] [address] [facility] [place] [address] * (ABNORMAL) Differential, auto (03/12/2025 4:30 PM [...] ORDERABLES Fin al Result Performing Organization Address [facility] Co de Phone Number [facility] [address] [facility] [place] [address] * (ABNORMAL) CBC with auto differential (03/12/2025 4:30 PM CDT) WBC 7.02 3.80 - 9.90 K/cumm Hgb 15.2 13.0 - 17.5 g/dL [facility] Hct 42.9 38.9 - 50.3 % [facility] Plt 225 150 - 400 K/cumm [facility] MPV 8.8(L) 9.1 - 12.3 fL [facility] RBC 4.81 4.30 - 5.80 M/cumm [facility] MCV 89.2 81.3 - 96.4 fL [facility] MCH 31.6 27.1 - 33.3 pg [facility] MCHC 35.4 32.3 - 35.7 g/dL [facility] RDW CV 13.1 11.1 - 14.9 % [facility] RDW SD 42.8 35.7 - 48.1 fL [facility] Blood 03/12/2025 4:30 PM CDT 03/12/2025 4:33 PM CDT Son Rondon NP LAB BLOOD ORDERABLES Fin al Result Performing Organization Address [facility] Co de Phone Number [facility] [address] [facility] Department [place] [address] * Comprehensive metabolic panel (03/12/2025 4:30 PM CDT) Sodium 138 135 - 145 mmol/L Potassium, pl 4.4 3.3 - 4.9 mmol/L [facility] Chloride 103 97 - 110 mmol/L [facility] CO2 22 22 - 32 mmol/L [facility] Anion gap 13 2 - 15 mmol/L [facility] BUN 13 6 - 25 mg/dL [facility] Creatinine 0.90 0.80 - 1.30 mg/dL [facility] Glucose 143 70 - 199 mg/dL [facility] Comment: Interpretive Data Fasting glucose [...] PW Albumin 4.5 3.5 - 5.0 g/dL [facility] Alk phos 43 40 - 130 Units/L [facility] ALT 27 7 - 55 Units/L [facility] AST 17 10 - 50 Units/L [facility] Blood 03/12/2025 4:30 PM CDT 03/12/2025 4:33 PM CDT us Son Rondon NP LAB BLOOD ORDERABLES Fin al Result [facility] [address] [facility] Department [place] [address] * XR Chest PA Lateral 2 Views [...] Esteban Flores M.D., MPH us Son Rondon PSYCHOLOGICAL OPERATIONS OFFICER IMG XR PROCEDURES Final Result * ECG 12 lead (03/12/2025 3:41 PM CDT) 03/12/2025 3:41 PM CDT Narrative [facility] - 03/12/2025 4:23 PM CDT Vent Rate: 121 bpm RR Interval: 492 msec [place] Interval: 124 msec QRS Duration: 90 msec QT Interval: 302 msec QTC Interval: 374 msec P-R-T [place]: 45 - 16 - 56 degrees IMPRESSION: SINUS TACHYCARDIA ABNORMAL RHYTHM ECG Electronically Signed By: Tapan Verduzco DO, [facility] us Bj Leger DO ECG ORDERABLES Final Re sult [facility] * AK AN ELECTIVE ENDOTRACHEAL AIRWAY, AK AN PROCEDURE PLACEHOLDER (03/06/2025 12:16 PM CDT) [...] tape Number of attempts: 1 David Marcos ELECTROLYSIST ANESTHESIA ORDERABLE S Final Result from Last 3 Months Insurance [facility] HMO/PPO Address: [facility] [address] [place] [address] [facility] HMO/PPO Address: [facility] [id number] [place] [id number] Care Teams Chart Changer Relationship Specialty Start Date End Date Unknown, Notinfile PCP - General 04/30/25
--- OUTSIDE RECORDS SUMMARY | 2025-05-19 12:38 | XMS_ITS | Clinical Summary ---
Author Organization [facility] Address [address] [facility] [place] [address] Care Team Providers Care Embossed Or Impressed Lettering Painter Name Role Phone Doris Chi MD Primary Care Provider [phone] Source Comments [facility],non-owned Affiliates and Associated Physician Practices is amultiple site organization consisting of ambulatory clinics and hospital sitesin [place], [place], [place] and [place]. This disclosure is being madepursuant to the Care Everywhere program and may not contain all information available regarding this patient. Last updated 18.[facility] [employer] Allergies Active Allergy Reactions Criticality Noted Date [...] Clean-Up) oxymetazoline (Afrin) 0.05 % nasal spray [place] 1 (one) spray into each nostril 2 times daily Please use for not longer than a week 37 mL 2024 Discontinued(L ist Clean-Up) fluticasone propionate (Flonase) 50 MCG/ACT nasal spray [place] 2 (two) sprays into each nostril once [...] PM CDT): - CTPE on 04/15 at [facility] showed segmental and subsegmental PE in the RLL PLAN: > continue eliquis 5 mg BID Assessment & Plan (05/03/2025 3:52 PM CDT): - CTPE on 04/15 at [facility] showed segmental and subsegmental PE [...] unrevealing - recently seen in ED in [facility] for bilateral tinnitus on 04/30, [...] unrevealing - recently seen in ED in [facility] for bilateral tinnitus on 04/30, [...] unrevealing - recently seen in ED in [facility] for bilateral tinnitus on 04/30, [...] - 05/03/2025 3:45 PM CDT Hospital Encounter [facility] [address] [place] [address] Albert Turner MD Thompson, Keniesha O, MD Mayer, Pj C, DO Internal Medicine Discharge Disposition: Home or Self Care 05/02/2025 Travel 04/17/2025 11:30 AM CDT Office Visit [facility] - ENT [address] [place] [address] Pj Jeffers MD Tinnitus of [...] and heating? Not hard at all 05/03/2025 [facility] - Occupational Stress [...] any time in the past 12 m [facility], were you homeless or living in a mcc (including now)? 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 Gender Identity Not on file Sexual Orientation [...] [address] [place] [address] Pj Jeffers MD [address] [place] [address] Health Maintenance Due Date Last Done Comments [...] (Bezet) 428 ms [facility] MUSE Calculated P [place] 60 degrees [facility] MUSE Calculated R [place] 6 degrees [facility] MUSE Calculated T [place] 41 degrees [facility] MUSE Interpretation EKG NORMAL SINUS RHYTHM EARLY TRANSITION, INCREASED R/S RATIO IN V1, CONSIDER POSTERIOR INFARCT ABNORMAL ECG WHEN COMPARED WITH ECG OF 22-NOV-2024 15:36, NO SIGNIFICANT CHANGE WAS FOUND Confirmed by SALBADOR BILL MD ([id number]) on 05/07/2025 11:49:03 AM [facility] 05/03/2025 12:3 9 PM CDT 05/07/2025 11:49 AM CDT Pj Dawkins DO ECG ORDERABLES Edited Result - Final Performing Organization Address City/[facility]/ZIP Co de Phone Number [facility] * VITAMIN B12 (05/03/2025 11:53 AM CDT) Pathologist [facility] Vitamin B12 508 213 - 816 pg/mL 05/03/2025 1:04 PM CDT [facility] Blood BLOOD SPECIMEN / Unknown Lab Venipuncture / Unknown 05/03/2025 11:53 AM CDT 05/03/2025 12:11 PM CDT Pj Dawkins DO LAB - CHEMISTRY ORDERABLES Fin al Result Performing Organization Address City/[facility]/ZIP Co de Phone Number [facility] [address] [place] [address], [facility] [phone] * (ABNORMAL) CBC W AUTO DIFFERENTIAL (05/03/2025 5:43 AM CDT) Only the most recent of2 resultswithin the time period is included. [facility] WBC 8.9 4.0 - 10.7 x10E9/L 05/03/2025 6:56 AM [facility] RBC Count 4.79 4.30 - 5.80 x10E12/L 05/03/2025 6:56 AM [facility] Hemoglobin 14.5 13.3 - 17.5 g/dL 05/03/2025 6:56 AM [facility] Hematocrit 41.9 38.7 - 51.1 % 05/03/2025 6:56 AM [facility] MCV 87.5 80.0 - 98.0 fL 05/03/2025 6:56 AM [facility] MCH 30.3 26.7 - 33.6 pg 05/03/2025 6:56 AM T [facility] MCHC 34.6 31.7 - 36.3 g/dL 05/03/2025 6:56 AM [facility] RDW-CV 13.0 11.3 - 14.8 % 05/03/2025 6:56 AM [facility] Platelet Count 213 150 - 420 x10E9/L 05/03/2025 6:56 AM [facility] MPV 9.2 7.8 - 11.4 fL 05/03/2025 6:56 AM [facility] Neutrophil % 78.8(H) 41.0 - 74.0 % 05/03/2025 6:56 AM [facility] Lymphocyte % 18.1 17.0 - 47.0 % 05/03/2025 6:56 AM [facility] Monocyte % 1.9(L) 3.0 - 11.0 % 05/03/2025 6:56 AM [facility] Eosinophil % 0.0 0.0 - 7.0 % 05/03/2025 6:56 AM [facility] Basophil % 0.4 0.0 - 1.6 % 05/03/2025 6:56 AM [facility] Immature Granulocytes % 0.8 0.0 - 1.0 % 05/03/2025 6:56 AM [facility] Neutrophil Absolute 7.00 1.60 - 7.50 x10E9/L 05/03/2025 6:56 AM [facility] Lymphocyte Absolute 1.61 1.00 - 4.40 x10E9/L 05/03/2025 6:56 AM [facility] Monocyte Absolute 0.17 0.15 - 1.00 x10E9/L 05/03/2025 6:56 AM [facility] Eosinophil Absolute 0.00 0.00 - 0.60 x10E9/L 05/03/2025 6:56 AM [facility] Basophil Absolute 0.04 0.00 - 0.13 x10E9/L 05/03/2025 6:56 AM [facility] Blood BLOOD SPECIMEN / Unknown Lab Venipuncture / Unknown 05/03/2025 5:43 AM CDT 05/03/2025 6:09 AM CDT us Alka Kennedy MD LAB - HEMATOLOGY ORDERABL ES Final Result [facility] [address] [place] [address], [facility] [phone] * (ABNORMAL) COMPREHENSIVE METABOLIC PANEL (05/03/2025 5:43 AM CDT) Only the most recent of2 resultswithin the time period is included. BUN 8 7 - 26 mg/dL 05/03/2025 6:55 AM [facility] Creatinine 0.76 0.71 - 1.16 mg/dL 05/03/2025 6:55 AM [facility] Sodium 141 136 - 145 mmol/L 05/03/2025 6:55 AM [facility] Potassium 4.3 3.5 - 4.5 mmol/L 05/03/2025 6:55 AM [facility] Chloride 116(H) 98 - 107 mmol/L 05/03/2025 6:55 AM [facility] CO2 17(L) 22 - 29 mmol/L 05/03/2025 6:55 AM [facility] Glucose 118(H) 70 - 99 mg/dL 05/03/2025 6:55 AM [facility] Calcium 8.9 8.4 - 10.2 mg/dL 05/03/2025 6:55 AM [facility] Protein Total 6.7 6.0 - 8.3 g/dL 05/03/2025 6:55 AM [facility] Albumin 4.1 3.4 - 5.0 g/dL 05/03/2025 6:55 AM [facility] Bilirubin Total 0.3 0.2 - 1.2 mg/dL 05/03/2025 6:55 AM [facility] Alkaline Phosphatase 45 40 - 150 U/L 05/03/2025 6:55 AM [facility] ALT 29 5 - 55 U/L 05/03/2025 6:55 AM [facility] AST 12 5 - 34 U/L 05/03/2025 6:55 AM CDT [facility] Anion Gap 8 6 - 16 05/03/2025 6:55 AM T [facility] BUN/Creatinine Ratio 11 7 - 23 05/03/2025 6:55 AM T [facility] Osmolality Calculated 291 275 - 295 mOsm/kg 05/03/2025 6:55 AM T [facility] Albumin/Globulin Ratio 1.6 1.1 - 2.3 05/03/2025 6:55 AM [facility] eGFR by CKD-EPI >90 >=90 mL/min/1.7 3 m2 05/03/2025 6:55 AM [facility] LABORATORY [facility] Comment:Estimated Glomerular Filtration Rate (eGFR) calculated using the CKD-EPI Creatinine Equation (2020), per the National Kidney Foundation and [place] [employer]ph[employer] recommendations. Blood BLOOD SPECIMEN / Unknown Lab Venipuncture / Unknown 05/03/2025 5:43 AM CDT 05/03/2025 6:10 AM CDT us Alka Kennedy MD LAB - CHEMISTRY ORDERABLE S Final Result [address] [address], [facility] [phone] * (ABNORMAL) LACTIC ACID BLOOD (05/03/2025 5:12 AM CDT) Lactic Acid-Stat 2.2(H) <=2.0 mmol/L 05/03/2025 6:49 AM CDT [facility] Blood BLOOD SPECIMEN / Unknown Lab Venipuncture / Unknown 05/03/2025 5:12 AM CDT 05/03/2025 6:10 AM CDT us Alka Kennedy MD LAB - CHEMISTRY ORDERABLE S Final Result [address] [address], [place] [phone] * (ABNORMAL) LACTIC ACID BLOOD REFLEX TO [...] ORDERABLES Final Result [facility] [address] [place] [address], [facility] [phone] * CT Chest Pe W Abd Pelvis [...] esophagitis. > Dictated by Tal Yao MD (ceo and president). Critical findings were discussed in detail with the patient's care provider, Dr. Turner by Dr. Yao via telephone at 8:15 PM on 05/02/2025 with readback comprehension and verification. > Dictated by Structural Technician I, Cleopatra Dias MD have personally reviewed and interpreted this examination/study. > Interpreting Provider: Cleopatra Dias MD on 05/02/2025 9:12 PM Narrative 05/02/2025 9:12 PM CDT PROCEDURE: TEMPORARY, DATE/TIME OF EXAM: 05/02/2025 7:55 PM, LOCATION [facility] INDICATION: R41.82: Altered mental status, unspecified altered [...] TEMPORARY, DATE/TIME OF EXAM: 05/02/2025 7:55 PM, [facility] INDICATION: R41.82: Altered mental status, unspecified [...] refluxesophagitis. > Dictated by Tal Yao MD (ceo and president). Critical findings were discussed in detail with the patient's care provider, Dr. Turner by Dr. Yao via telephone at 8:15 PM on 05/02/2025with readback comprehension and verification. > Dictated by Structural Technician I, Cleopatra Dias MD have personally reviewed [...] DATE/TIME OF EXAM: 05/02/2025 8:04 PM, LOCATION [facility] INDICATION: R41.82: Altered mental status, unspecified altered mental status type R19.7: Diarrhea, unspecified type R53.1: Weakness EXAMINATION: 1.Computed tomography (CT) of the head without contrast 2.CT of the cervical spine without contrast ADDITIONAL CLINICAL INFORMATION: Ordering Provider Reason For Exam: Syncope (accession [id number]), Sycnope (accession [id number]) Technologist Note: None. Additional: None. TECHNIQUE: CT [...] CONTRAST,DATE/TIME OF EXAM: 05/02/2025 8:04 PM, LOCATION [facility] INDICATION: R41.82: Altered mental status, unspecified altered mental status type R19.7: Diarrhea, unspecified type R53.1: Weakness EXAMINATION: 1.Computed tomography (CT) of the head without contrast 2.CT of the cervical spine without contrast ADDITIONAL CLINICAL INFORMATION: Ordering Provider Reason For Exam: Syncope (accession [id number]),Sycnope (accession [id number]) Technologist Note: None. Additional: None. TECHNIQUE: CT [...] DATE/TIME OF EXAM: 05/02/2025 8:04 PM, LOCATION [facility] INDICATION: R41.82: Altered mental status, unspecified altered mental status type R19.7: Diarrhea, unspecified type R53.1: Weakness EXAMINATION: 1.Computed tomography (CT) of the head without contrast 2.CT of the cervical spine without contrast ADDITIONAL CLINICAL INFORMATION: Ordering Provider Reason For Exam: Syncope (accession [id number]), Sycnope (accession [id number]) Technologist Note: None. Additional: None. TECHNIQUE: CT [...] CONTRAST,DATE/TIME OF EXAM: 05/02/2025 8:04 PM, LOCATION [facility] INDICATION: R41.82: Altered mental status, unspecified altered mental status type R19.7: Diarrhea, unspecified type R53.1: Weakness EXAMINATION: 1.Computed tomography (CT) of the head without contrast 2.CT of the cervical spine without contrast ADDITIONAL CLINICAL INFORMATION: Ordering Provider Reason For Exam: Syncope (accession [id number]),Sycnope (accession [id number]) Technologist Note: None. Additional: None. TECHNIQUE: CT [...] DATE/TIME OF EXAM: 05/02/2025 6:43 PM, LOCATION [facility] INDICATION: R41.82: Altered mental status, unspecified altered [...] visualized. Report dictated by Tal Yao MD (ceo and president). > Dictated by Structural Technician I, Marlon Obrien MD have personally reviewed and interpreted this examination/study. > Interpreting Provider: Marlon Obrien MD on 05/03/2025 3:30 AM Procedure Note Marlon Obrien MD - 05/03/2025 PROCEDURE: XR CHEST 1VW, DATE/TIME OF EXAM: 05/02/2025 6:43 PM, LOCATION [facility] INDICATION: R41.82: Altered mental status, unspecified altered [...] visualized. Report dictated by Tal Yao MD (ceo and president). > Dictated by Structural Technician I, Marlon Obrien MD have personally reviewed and interpreted this examination/study. > Interpreting Provider: Marlon Obrien MD on 05/03/2025 3:30 AM us Albert Turenr MD DIAGNOSTIC IMAGING ORDERABLES Fi nal Result * BLOOD TYPE VERIFICATION (05/02/2025 6:30 PM CDT) ABO Rh A POS 05/02/2025 7:1 7 PM CDT [facility] Blood Bank BLOOD SPECIMEN / Unknown Venipuncture / Unknown 05/02/2025 6:30 PM CDT 05/02/2025 6:44 PM CDT us Albert Turner MD LAB - BLOOD BANK ORDERABLES Mira l Result [facility] [address] [place] [address], [facility] [phone] * TROPONIN-I HIGH SENSITIVE REFLEX 1HOUR (05/02/2025 6:27 PM CDT) Pathologist [facility] Troponin I High Sensitive <3 <=35 ng/L [...] ORDERABLES Final Result [facility] [address] [place] [address], [facility] [phone] * (ABNORMAL) BLOOD GASES SALLY + COOX PANEL (05/02/2025 6:27 PM CDT) Pathologist [facility] pH Venous 7.32 7.32 - 7.42 pH 05/02/2025 6:48 PM T [facility] pO2 Venous 38 35 - 40 mmHg 05/02/2025 6:48 PM T [facility] pCO2 Venous 51(H) 40 - 50 mmHg 05/02/2025 6:48 PM T [facility] HCO3 Venous 26.3 20 - 30 mmol/L 05/02/2025 6:48 PM T [facility] Base Excess Venous -0.7 -2.0 - 2.0 mmol/L 05/02/2025 6:48 PM T [facility] Oxyhemoglobin Venous 64.4 % 04/21 6:48 PM [facility] Deoxyhemoglobin (HHB) Venous % 33.9 % 05/02/2025 [...] Fin al Result [facility] [address] [place] [address], [place] [phone] * TYPE + SCREEN PANEL (05/02/2025 5:48 PM CDT) Antibody Screen NEG 6:44 PM CDT [facility] ABO Rh A POS 05/02/2025 6:44 PM CDT [facility] Blood Bank BLOOD SPECIMEN / Unknown Venipuncture / Unknown 05/02/2025 5:48 PM CDT 05/02/2025 5:59 PM CDT Albert Turner MD LAB - BLOOD BANK ORDERABLES Mira l Result [facility] [address] [place] [address], [place] [phone] * CULTURE BLOOD (05/02/2025 5:45 PM CDT) Only the most recent of2 resultswithin the time period is included. Culture No growth day 5 LUCIUS 05/07/2025 11:31 PM CDT [facility] MICROBIOLOG[facility] Blood PERIPHERAL BLOOD / Unknown Venipuncture / Unknown 05/02/2025 5:45 PM CDT 05/02/2025 5:58 PM CDT Albert Turner MD LAB - MICROBIOLOGY ORDERABLES Fi nal Result [facility] MICROBIOLOG[facility] [address] [place], [place] [address], [facility] [phone] * PROCALCITONIN LEVEL (05/02/2025 5:30 PM CDT) Pathologist [facility] PROCALCITONIN <0.02 <=0.10 ng/mL 05/02/2025 9:37 PM [...] Change in Procalcitonin Calculator is available at [email or web address] If clinical picture has not improved and PCT remains high, reevaluate and consider treatment failure or other causes. Albert Turner MD LAB - CHEMISTRY ORDERABLES Final Result Performing Organization Address City/[facility]/ZIP Co de Phone Number [address] [address], [place] [phone] * TROPONIN-I HIGH SENSITIVE BASELINE + 1HR (05/02/2025 5:30 PM CDT) [facility] Troponin I High Sensitive <3 <=35 ng/L 05/02/2025 9:22 PM CDT [facility] Blood BLOOD SPECIMEN / Unknown Venipuncture / Unknown 05/02/2025 5:30 PM CDT 05/02/2025 5:55 PM CDT Albert Turner MD LAB - CHEMISTRY ORDERABLES Final Result Performing Organization Address [facility] Co de Phone Number [address] [address], [place] [phone] * PT-INR (05/02/2025 5:30 PM CDT) [facility] PT 12.1 12.1 - 14.8 Seconds 05/02/2025 [...] ORDERABLES Fin al Result Performing Organization Address [facility]/ZIP Co de Phone Number [address] [address], [place] [phone] * B-TYPE NATRIURETIC PEPTIDE (05/02/2025 5:30 PM CDT) [facility] BNP <10 <100 pg/mL 05/02/2025 7:22 PM [...] CHEMISTRY ORDERABLES Final Result Performing Organization Address City/[facility]/ZIP Co de Phone Number [address] [address], [facility] [phone] * PHOSPHORUS BLOOD (05/02/2025 5:30 PM CDT) Phosphorus 3.7 2.8 - 5.1 mg/dL 05/02/2025 6:34 PM CDT [facility] Blood BLOOD SPECIMEN / Unknown Venipuncture / Unknown 05/02/2025 5:30 PM CDT 05/02/2025 5:56 PM CDT Albert Turner MD LAB - CHEMISTRY ORDERABLES Final Result [address] [address], [facility] [phone] * MAGNESIUM BLOOD (05/02/2025 5:30 PM CDT) Magnesium 2.0 1.6 - 2.6 mg/dL 05/02/2025 6:34 PM CDT [facility] Blood BLOOD SPECIMEN / Unknown Venipuncture / Unknown 05/02/2025 5:30 PM CDT 05/02/2025 5:56 PM CDT Albert Turner MD LAB - CHEMISTRY ORDERABLES Final Result [address] [address], [place] [phone] * LIPASE BLOOD (05/02/2025 5:30 PM CDT) [...] CHEMISTRY ORDERABLES Final Result Performing Organization Address [facility]/ZIP Co de Phone Number [address] [address], [place] [phone] * CK BLOOD (05/02/2025 5:30 PM CDT) Pathologist [facility] CK Total 30 30 - 200 U/L 05/02/2025 6:35 PM CDT [facility] Blood BLOOD SPECIMEN / Unknown Venipuncture / Unknown 05/02/2025 5:30 PM CDT 05/02/2025 5:55 PM CDT Albert Turner MD LAB - CHEMISTRY ORDERABLES Final Result Performing Organization Address City/[facility]/ZIP Co de Phone Number [address] [address], [place] [phone] * AMMONIA (05/02/2025 5:30 PM CDT) Ammonia 19 <=72 umol/L 05/02/2025 6:27 PM CDT [facility] Blood BLOOD SPECIMEN / Unknown Venipuncture / Unknown 05/02/2025 5:30 PM CDT 05/02/2025 5:56 PM CDT Albert Turner MD LAB - CHEMISTRY ORDERABLES Final Result Performing Organization Address City/[facility]/ZIP Co de Phone Number [place] [id number] [place] [address], [facility] [phone] * (ABNORMAL) ALCOHOL ETHYL BLOOD (05/02/2025 5:30 [...] Ethanol Interp <10: None Detected. Depression of AOC AADC OPERATIONS STAFF OFFICER: >100 mg/dl Potentially Critical: >250 mg/dl Potentially [...] CHEMISTRY ORDERABLES Final Result Performing Organization Address City/[facility]/ZIP Co de Phone Number [address] [address], [place] [phone] from Last 3 Months Insurance [place] [address] Advance Directives * Full Code (Latest Code Status on File) Date Activated Date Inactivated Comments 05/02/2025 11:48 PM 05/03/2025 4:55 PM * Full Code Date Activated Date Inactivated Comments 09/23/2024 6:37 PM 09/24/2024 7:13 PM Care Teams Embossed Or Impressed Lettering Painter Relationship Specialty Start Date End Date Doris Chi MD [address] [place] [address] PCP - General Family Medicine 05/02/25
== END 2025-05-19 13:07 | disposition home or self-care (01) ==
PROVIDERS: Emergency Provider Emergency Medicine
DX: H93.13 Tinnitus, bilateral (principal)
CPT/HCPCS: 99283